=== PATIENT | female | born 1945 | race Caucasian/White ===

== ENCOUNTER → 2016-10-12 | Outpatient (CLI) | payer MEDICARE ==
--- NOTE | 2016-10-14 07:47 | MM ---
Reason for exam: screening (asymptomatic). Last mammogram was performed 1 year and 1 month ago. History: Patient is postmenopausal. Family history of breast cancer in mother at age 65, breast cancer in maternal grandfather, and breast cancer in sister at age 63. Benign left mammotome panel of the left breast, October 06, 2010. Took hormonal contraceptives for 2 years. Physical Findings: A clinical breast exam by your physician is recommended on an annual basis and results should be correlated with mammographic findings. MG 3D Screening Mammo W/Cad Bilateral CC and MLO view(s) were taken. Prior study comparison: September 20, 2015, bilateral MG screening mammo w CAD. July 04, 2014, bilateral MG screening mammo w CAD. June 21, 2013, bilateral digital screening mammo w/CAD. September 14, 2011, CAD bilateral diagnostic mammogram. There are scattered fibroglandular densities. Previous mammotome biopsy in the left breast. No significant changes when compared with prior studies. ASSESSMENT: Negative, BI-RAD 1 RECOMMENDATION: Routine screening mammogram of both breasts in 1 year.
== END | disposition home or self-care (01) ==
LOC: RADMAMWWP 14:03
PROVIDERS: ATTEND Internal Medicine
DX: Z12.31 Encounter for screening mammogram for malignant neoplasm of breast (principal)
CPT/HCPCS: 77063; G0202

== ENCOUNTER → 2017-11-16 | Outpatient (CLI) | payer MEDICARE ==
--- NOTE | 2017-11-17 14:16 | MM ---
Reason for exam: screening (asymptomatic). Last mammogram was performed 1 year and 1 month ago. History: Patient is postmenopausal. Family history of breast cancer in mother at age 65, breast cancer in maternal grandfather, and breast cancer in sister at age 63. Benign left mammotome panel of the left breast, October 06, 2010. Took hormonal contraceptives for 2 years. Physical Findings: A clinical breast exam by your physician is recommended on an annual basis and results should be correlated with mammographic findings. MG 3D Screening Mammo W/Cad Bilateral CC and MLO view(s) were taken. Prior study comparison: October 12, 2016, bilateral MG 3d screening mammo w/cad. September 20, 2015, bilateral MG screening mammo w CAD. The breast tissue is heterogeneously dense. This may lower the sensitivity of mammography. Benign appearing bilateral calcifications. No suspicious abnormality. Left breast biopsy marker noted. ASSESSMENT: Benign, BI-RAD 2 RECOMMENDATION: Routine screening mammogram of both breasts in 1 year.
== END | disposition home or self-care (01) ==
LOC: RADMAMWWP 16:45
PROVIDERS: ATTEND Internal Medicine
DX: Z12.31 Encounter for screening mammogram for malignant neoplasm of breast (principal)
CPT/HCPCS: 77063; 77067

== ENCOUNTER → 2019-02-16 | Outpatient (CLI) | payer MEDICARE ==
--- NOTE | 2019-02-20 09:36 | MM ---
Reason for exam: screening (asymptomatic). Last mammogram was performed 1 year and 3 months ago. History: Patient is postmenopausal. Family history of breast cancer in mother at age 65, breast cancer in maternal grandfather, and breast cancer in sister at age 63. Benign left mammotome panel of the left breast, October 06, 2010. Took hormonal contraceptives for 2 years. Physical Findings: A clinical breast exam by your physician is recommended on an annual basis and results should be correlated with mammographic findings. MG 3D Screening Mammo W/Cad Bilateral CC and MLO view(s) were taken. Prior study comparison: November 16, 2017, bilateral MG 3d screening mammo w/cad. October 12, 2016, bilateral MG 3d screening mammo w/cad. The breast tissue is heterogeneously dense. This may lower the sensitivity of mammography. Previous mammotome biopsy in the left breast. There is chronic nodularity in the left breast medially. Stable asymmetric densities medial right breast. No significant changes when compared with prior studies. ASSESSMENT: Benign, BI-RAD 2 RECOMMENDATION: Routine screening mammogram of both breasts in 1 year.
== END | disposition home or self-care (01) ==
LOC: RADMAMWWP 16:10
PROVIDERS: ATTEND Internal Medicine
DX: Z12.31 Encounter for screening mammogram for malignant neoplasm of breast (principal)
CPT/HCPCS: 77063; 77067

== ENCOUNTER → 2020-08-07 | Outpatient (CLI) | payer MEDICARE ==
--- NOTE | 2020-08-09 11:36 | MM ---
Reason for exam: screening (asymptomatic). Last mammogram was performed 1 year and 6 months ago. History: Patient is postmenopausal. Family history of breast cancer in mother at age 65, breast cancer in maternal grandfather, and breast cancer in sister at age 63. Benign left mammotome panel of the left breast, October 06, 2010. Took hormonal contraceptives for 2 years. Physical Findings: A clinical breast exam by your physician is recommended on an annual basis and results should be correlated with mammographic findings. MG 3D Screening Mammo W/Cad Bilateral CC and MLO view(s) were taken. Prior study comparison: February 16, 2019, bilateral MG 3d screening mammo w/cad. November 16, 2017, bilateral MG 3d screening mammo w/cad. The breast tissue is extremely dense which could obscure a lesion on mammography. There are benign appearing round dystrophic calcifications bilaterally. Previous mammotome biopsy in the left breast. There is no discrete abnormality. ASSESSMENT: Benign, BI-RAD 2 RECOMMENDATION: Routine screening mammogram of both breasts in 1 year.
== END | disposition home or self-care (01) ==
LOC: RADMAMWWP 16:09
PROVIDERS: ATTEND Internal Medicine
DX: Z12.31 Encounter for screening mammogram for malignant neoplasm of breast (principal)
CPT/HCPCS: 77063; 77067

== ENCOUNTER → 2020-12-18 | Outpatient (CLI) | payer MEDICARE ==
--- NOTE | 2020-12-18 15:47 | US ---
EXAMINATION TYPE: US abdomen complete DATE OF EXAM: 12/18/2020 COMPARISON: NONE CLINICAL HISTORY: R10.84 Abdominal pain. RUQ pain after meals. Patient stated has fibromyalgia and kn own gallstones. EXAM MEASUREMENTS: Liver Length: 12.6 cm Gallbladder Wall: 0.2 cm CBD: 0.6 cm Spleen: 9.0 cm Right Kidney: 9.9 x 5.1 x 4.6 cm Left Kidney: 10.2 x 4.5 x 5.1 cm Pancreas: The pancreas is mostly obscured due to overlying bowel gas. Liver: periportal echogenicity noted in left lobe especially . This can be seen with pneumobilia. Gallbladder: sludge and multiple gallstones are seen within neck with some mobility of stones in LLD position Evidence for sonographic Kasper's sign: tender here CBD: wnl for 7th decade 6.2 mm. Spleen: wnl Right Kidney: No hydronephrosis or masses seen Left Kidney: No hydronephrosis or masses seen Upper IVC: wnl Abd Aorta: mid intimal wall thickening is noted, but size is wnl. The aorta is nonaneurysmal. The pr oximal aorta measures 1.5 cm AP, mid aorta measures 1.8 cm AP, distal aorta measures 1.5 cm AP. There is atherosclerotic calcification at the aorta. IMPRESSION: 1. Multiple gallstones and sludge within the gallbladder. There are gallstones within the neck of the gallbladder which are mobile. Gallbladder wall is not thickened. Common duct is within normal limits . Positive Kasper's sign. Surgical evaluation is recommended. 2. No evidence of abdominal aortic aneurysm. There is atherosclerotic irregularity of the abdominal a elizabeth. 3. There is periportal echogenicity within the left lobe of the liver. This can be seen with pneumobi joy or cholecystitis. 4. The pancreas is obscured due to overlying bowel gas.
== END | disposition home or self-care (01) ==
LOC: RADUSWWP 13:59
PROVIDERS: ATTEND Internal Medicine
DX: K80.20 Calculus of gallbladder without cholecystitis without obstruction (principal); R19.8 Other specified symptoms and signs involving the digestive system and abdomen
CPT/HCPCS: 76700

== ENCOUNTER 2021-01-04 09:14 | Inpatient (IN) | payer MEDICARE ==
[2021-01-04] MEDS ORDERED: HEPARIN SODIUM 1,000 UN/ML (10ML VL) IV ONE (09:19)
[2021-01-04] MEDS ORDERED: ASPIRIN 81 MG PO STA (09:21)
[2021-01-04] MEDS ORDERED: ATORVASTATIN 80 MG TAB PO STA (09:21)
--- NOTE | 2021-01-04 09:33 | ED ---
Chest Pain HPI - General Chief Complaint: Chest Pain Stated Complaint: STEMI Time Seen by Provider: 01/04/21 09:14 Source: patient, EMS, RN notes reviewed, old records reviewed Mode of arrival: EMS Limitations: no limitations - History of Present Illness Initial Comments: This is a 75-year-old female who is brought in by EMS with complaints of the onset of midsternal chest pain that started at 5:57 AM this morning he states was very severe. She states right now is 8-9/10 severity this is after one nitroglycerin administered by paramedics. She states she thought initially was her gallbladder she's been having pain similar to this over the last several months case stress test in August which was apparently was within normal limits. She had ultrasound the gallbladder recently she is being worked up for gallbladder disease. She has some nausea no vomiting no fevers chills sweats no other symptoms. She states she has problems with aspirin and statins and will not take them. No other complaints or modifying factors at this time. EKG was transmitted by EMS and is consistent with a ST elevation myocardial infarction. A STEMI alert was immediately called prior to the patient arrival. MD Complaint: chest pain - Related Data Allergies Allergy/AdvReac Type Severity Reaction Status Date / Time aspirin AdvReac Abdominal Verified 01/04/21 09:24 Pain atorvastatin [From Lipitor] AdvReac Abdominal Verified 01/04/21 09:24 Pain NSAIDS (Non-Steroidal AdvReac Abdominal Verified 01/04/21 09:24 Anti-Inflamma Pain [id number] Reductase AdvReac Abdominal Verified 01/04/21 09:24 Inhibitor Pain Review of Systems ROS Statement: Those systems with pertinent positive or pertinent negative responses have been documented in the HPI. ROS Other: All systems not noted in ROS Statement are negative. EKG Findings - EKG Results: EKG: interpreted by YASMEEN, sinus rhythm (Sinus rhythm of 93. Interval 194 QRS duration 68 QT/QTC 350/445 ST-T elevation in leads 1 and aVL also in V2 with depression in leads 23 aVF and V6.) Past Medical History Past Medical History: Unable to Obtain History of Any Multi-Drug Resistant Organisms: None Reported Past Surgical History: Unable to Obtain Past Psychological History: No Psychological Hx Reported Smoking Status: Never smoker Past Alcohol Use History: None Reported Past Drug Use History: None Reported General Exam - General Exam Comments Initial Comments: This is a well-developed well-nourished awake alert oriented 3 female Limitations: no limitations General appearance: alert, anxious, in distress Head exam: Present: atraumatic, normocephalic, normal inspection Eye exam: Present: normal appearance, PERRL, EOMI. Absent: scleral icterus, conjunctival injection, periorbital swelling ENT exam: Present: normal exam, mucous membranes moist Neck exam: Present: normal inspection, full ROM, other (No stridor JVD or bruits). Absent: tenderness, meningismus, lymphadenopathy Respiratory exam: Present: normal lung sounds bilaterally. Absent: respiratory distress, wheezes, rales, rhonchi, stridor Cardiovascular Exam: Present: regular rate, normal rhythm, normal heart sounds. Absent: systolic murmur, diastolic murmur, rubs, gallop, clicks GI/Abdominal exam: Present: soft, normal bowel sounds. Absent: distended, tenderness, guarding, rebound, rigid Extremities exam: Present: normal inspection, full ROM, normal capillary refill. Absent: tenderness, pedal edema, joint swelling, calf tenderness Back exam: Present: normal inspection Neurological exam: Present: alert, oriented X3, CN II-XII intact Psychiatric exam: Present: normal affect, normal mood Skin exam: Present: warm, dry, intact, normal color. Absent: rash Course Vital Signs 01/04/21 09:15 Temperature 97.4 F L Pulse Rate 93 Respiratory 16 Rate Blood Pressure 111/67 O2 Sat by Pulse 99 Oximetry Chest Pain MDM - MDM A STEMI alert was called. He did have evidence of an acute ST elevation myocardial infarction does appear consistent with anterolateral injury pattern Sherri Mariano was notified he did come the emergency department to see the patient be taken to the [facility]. Dr. López is notified Critical Care Time Critical Care Time: Yes Total Critical Care Time: 31 Critical Care Time: Total care time includes initial presentation with history physical ordering labs and x-rays review of x-ray. Discussion with Dr. Mariano regarding findings discussed with Dr. Yousif. Review of old charting was available. Discussed with paramedics upon arrival. Review of EMS EKG. Admission orders documentation the above discussed with [facility] personnel Disposition Clinical Impression: ST elevation myocardial infarction (STEMI), Chest pain Disposition: ADMITTED IP TO THIS HOSP Condition: Serious Referrals: Stacie López MD [Primary Care Provider] - 1-2 days
[2021-01-04 09:39] LABS: Basophils % (A) 0 %; Eosinophils # (A) 0.1 k/uL (0-0.7); Eosinophils % (A) 1 %; HCT 33.4 % (34.0-46.0); HGB 10.9 gm/dL (11.4-16.0); Lymphocytes # (A) 2.9 k/uL (1.0-4.8); Lymphocytes % (A) 21 %; MCH 29.5 pg (25.0-35.0); MCHC 32.6 g/dL (31.0-37.0); MCV 90.7 fL (80.0-100.0); Mean Platelet Volume 7.7; Monocytes # (A) 0.5 k/uL (0-1.0); Monocytes % (A) 3 %; Neutrophils # (A) 9.8 k/uL (1.3-7.7); Neutrophils % (A) 74 %; Platelet Count 270 k/uL (150-450); RBC 3.69 m/uL (3.80-5.40); RDW 13.2 % (11.5-15.5); WBC 13.4 k/uL (3.8-10.6)
[2021-01-04 09:43] LABS: ALT 48 U/L (4-34); AST 98 U/L (14-36); African American GFR (CKD) >90 (>60 ml/min/1.73 sqM); Albumin 4.3 g/dL (3.5-5.0); Alkaline Phosphatase 79 U/L (38-126); Anion Gap 10 mmol/L; Blood Urea Nitrogen 12 mg/dL (7-17); Calcium 9.4 mg/dL (8.4-10.2); Carbon Dioxide 26 mmol/L (22-30); Chloride 103 mmol/L (98-107); Creatine Kinase 67 U/L (30-135); Glucose 242 mg/dL (74-99); Magnesium 1.9 mg/dL (1.6-2.3); Non-African American GFR(CKD) >90 (>60 ml/min/1.73 sqM); Potassium 3.8 mmol/L (3.5-5.1); Sodium 139 mmol/L (137-145); Total Bilirubin 0.6 mg/dL (0.2-1.3); Total Protein 6.7 g/dL (6.3-8.2)
[2021-01-04] MEDS ORDERED: VERAPAMIL 2.5 MG/ML 2 ML AMP ONE (09:47)
[2021-01-04] MEDS ORDERED: fentaNYL (PF) 50 MCG/ML 2 ML AMP ONE (09:47)
[2021-01-04] MEDS ORDERED: LIDOCAINE 1% INJ 10MG/ML (20 ML MDV) ONE (09:47)
[2021-01-04 09:48] LABS: Partial Thromboplastin Time 23.1 sec (22.0-30.0); Prothrombin Time 10.7 sec (9.0-12.0)
--- NOTE | 2021-01-04 09:48 | XR ---
EXAMINATION TYPE: XR chest 1V portable DATE OF EXAM: 01/04/2021 COMPARISON: NONE HISTORY: 75 years Female. STUDY INDICATION GIVEN: Chest pain TECHNIQUE: AP upright portable chest radiograph FINDINGS AND IMPRESSION: Right infrahilar opacities demonstrated could be on the basis of atelectasis and/or pneumonic consoli dation. 5 mm nodule seen in the right lower third of the hemithorax, nodule could be infectious or inflammato ry or malignant, repeat chest radiograph in 1-2 months after appropriate treatment recommended. Alter natively a noncontrast CT chest can be obtained on outpatient basis. No pneumothorax or pleural effusion demonstrated. The cardiomediastinal silhouette is within normal limit. No acute osseous abnormality.
[2021-01-04] MEDS ORDERED: IV FLUID CONTINUATION 1,000 ML IV ONE (09:54)
[2021-01-04] MEDS ORDERED: ASPIRIN 81 MG ONE (09:55)
[2021-01-04] MEDS ORDERED: fentaNYL (PF) 50 MCG/ML 2 ML AMP IV ONE (09:56)
[2021-01-04] MEDS ORDERED: HEPARIN SODIUM 1,000 UN/ML (10ML VL) ONE (09:57)
[2021-01-04] MEDS ORDERED: ASPIRIN 81 MG PO ONE (09:57)
[2021-01-04] MEDS ORDERED: LIDOCAINE 1% INJ 10MG/ML (20 ML MDV) SQ ONE (09:58)
[2021-01-04] MEDS ORDERED: VERAPAMIL SYRINGE (5 MG/10 ML) INTRAARTER ONE (10:00)
[2021-01-04] MEDS ORDERED: TICAGRELOR 90 MG TAB ONE (10:04)
[2021-01-04] MEDS ORDERED: TICAGRELOR 90 MG TAB PO ONE (10:06)
[2021-01-04] MEDS: HEPARIN SODIUM 1,000 UN/ML (10ML VL) IV ONE ×3 (10:06→10:18)
--- NOTE | 2021-01-04 10:10 | CONS ---
CONSULTATION ATTENDING: Dr. López. HISTORY OF PRESENT ILLNESS: Mrs. Pratt is a 75-year-old female with history of hyperlipidemia, intolerant to statin, who presented with acute episode of chest discomfort. She has been having discomfort on and off for the last month or so and underwent cardiac testing that according to her was unremarkable. I do not have the results available to me. She subsequently underwent an abdominal ultrasound and was found to have sludge and multiple gallstones. Today she woke up with severe chest discomfort that was persistent, associated with dyspnea. Came into the emergency room and was noted to have ST-segment elevation involving the anterolateral leads with ST depression in the inferior leads. The patient has no prior history of congestive heart failure. No PND. No orthopnea. No peripheral edema. No dizziness or syncope. Her list of medication is not available to me at this time. REVIEW OF SYSTEMS: RESPIRATORY SYSTEM: She denies any recent cough or fever. No history of chronic obstructive pulmonary disease. GI SYSTEM: No recent GI bleeding. No peptic ulcer disease. She has abdominal discomfort. SYSTEM: No dysuria or hematuria. NERVOUS SYSTEM: No history of stroke or seizure. PHYSICAL EXAMINATION: GENERAL: A 75-year-old female, alert, oriented, no apparent distress. VITAL SIGNS: Blood pressure 111/60 with a heart rate in the 90s. HEAD: Normocephalic. Eyes sclerae anicteric. NECK: Good carotid upstroke, no bruit, no jugular venous distention. LUNGS: Clear to auscultation. HEART: Regular rate and rhythm S1, S2. No S3. No S4. No rub. ABDOMEN: Soft and nontender. Positive bowel sounds. No organomegaly. EXTREMITIES: No edema. Intact pulses. LAB DATA: Not available. EKG revealed sinus mechanism with ST-segment elevation in the anteroapical leads in the one and aVL with ST depression inferiorly consistent with an anterior wall myocardial infarction. IMPRESSION: 1. Acute myocardial infarction. 2. Hyperlipidemia intolerant to statin. 3. History of cholelithiasis. RECOMMENDATION: I recommend proceeding with emergent cardiac catheterization to evaluate her status and guide her treatment. The rationale behind the procedure, its risks and the complications were discussed with the patient who is in full understanding and agreement. Thank you for this consult. We will follow with you. MMODL / IJN: [id number] /
[2021-01-04] MEDS ORDERED: ONDANSETRON 4 MG/2 ML VIAL ONE (10:12)
[2021-01-04] MEDS ORDERED: NITROGLYCERIN 1000MCG/10ML SYRINGE INTRACORON ONE (10:12)
[2021-01-04] MEDS ORDERED: ONDANSETRON 4 MG/2 ML VIAL IVP ONE (10:14)
[2021-01-04] MEDS ORDERED: MIDAZOLAM 2 MG/2 ML VIAL IV ONE (10:17)
[2021-01-04] MEDS ORDERED: IOPAMIDOL-370 125ML BTL INJ ONE (10:20)
[2021-01-04] MEDS ORDERED: IOPAMIDOL-370 100ML BTL INJ ONE (10:30)
[2021-01-04] MEDS ORDERED: RX INFO: IV CONTRAST WAS GIVEN 1 EACH MISC MISCELLANE PRN (10:47)
[2021-01-04] MEDS ORDERED: ATROPINE SULFATE 0.1 MG/ML 10ML SYRINGE IV PRN (10:47)
[2021-01-04] MEDS ORDERED: ZOLPIDEM 5 MG TAB PO PRN (10:47)
[2021-01-04] MEDS ORDERED: MAG HYDROX/AL HYDROX/SIMETH 30 ML CUP PO PRN (10:47)
[2021-01-04] MEDS ORDERED: NITROGLYCERIN SL TABS 0.4 MG TAB SUBLINGUAL PRN (10:47)
[2021-01-04 10:53] LABS: Glucose,Whole Blood 217 mg/dL (75-99)
[2021-01-04] MEDS ORDERED: SODIUM CHLORIDE 0.9% 1,000 ML IV SCH (11:00)
--- NOTE | 2021-01-04 11:30 | CC ---
CARDIAC CATHETERIZATION REPORT PROCEDURE PERFORMED: Cardiac catheterization. INDICATIONS: Mrs. Prtat is a 75-year-old female with known history of hyperlipidemia, who presented with symptoms of chest discomfort and electrocardiographic changes consistent with anterior wall myocardial infarction. In view of that, recommendation made regarding a cardiac catheterization. The procedure as well as the risks and the complications were discussed with the patient who is in full understanding and agreement. PROCEDURE: Patient was brought to laboratory analyst in a fasting semi-sedate state after receiving fentanyl and Benadryl and achieving moderate conscious sedated state. Using Xylocaine anesthesia and Seldinger technique, a 6-Montserratian sheath was introduced in the right radial artery. Selective left coronary angiography performed using 6-Montserratian FL3.5 guiding catheter. After obtaining images of the left coronary system and performing angioplasty and stenting of the LAD, a 5-Montserratian 3.5 bend right Ivon catheter was introduced in the system and images of the right coronary artery were performed. Following that, 5-Montserratian tight pigtail catheter was introduced in the left ventricle and pressures were calculated. Following that, catheter and sheath were removed. Hemostasis was obtained with deployment of a TR band. There was no immediate complication. Patient was returned to room in stable condition. Of note, the patient received intra-arterial verapamil. FINDINGS: FLUOROSCOPY: There is calcification involving all the coronary arteries but predominantly the proximal LAD. LEFT MAIN: This is a large-sized vessel, bifurcating into left circumflex, left anterior descending artery. Left main artery has no evidence of high-grade stenosis. LEFT ANTERIOR DESCENDING ARTERY: This is a large-sized vessel reaching to the apex with a wrap around the apex segment giving rise to a moderately sized diagonal branch in the mid segment. The proximal LAD has a 99% stenosis. The mid LAD and the distal LAD has diffuse intimal disease, small in caliber. The diagonal branch has diffuse intimal disease of 20% to 30%. LEFT CIRCUMFLEX: This is a nondominant vessel giving rise to one obtuse marginal branch. The left circumflex has diffuse intimal disease throughout its course with area of stenosis up to 60%-70%. The obtuse marginal branch gives a smaller branch that has a 99% stenosis of the ostium. The rest of the vessel has no high-grade stenosis. RIGHT CORONARY ARTERY: This is a large dominant vessel bifurcating distally into PDA and posterolateral segment branches. The mid right coronary artery has a 70% stenosis. There is another area of stenosis of about 60% distally. The PLV and the PDA have diffuse intimal disease with area of stenosis up to 80%. The caliber of the vessel beyond that is smaller in caliber. LEFT VENTRICULOGRAM: Left ventriculogram was not performed. HEMODYNAMICS: There was no gradient across the aortic valve. The left ventriclar end-diastolic pressure was 24-28 mmHg. CONCLUSION: 1. Critical stenosis involving the proximal LAD. 2. Significant disease in the mid right coronary artery and in an obtuse marginal branch. 3. Elevated left ventricular end-diastolic pressure. RECOMMENDATION: In view of finding anatomy, I recommend proceeding with angioplasty and stenting of the LAD. The procedure as well as the risks and the complications were discussed with the patient who is in full understanding and agreement. MMEDAL / IJN: [id number] /
--- NOTE | 2021-01-04 11:35 | PTCA ---
PERCUTANEOUSTRANS CORORONARY ANGIOGRAPHY PROCEDURE PERFORMED: Angioplasty. INDICATIONS: Mrs. Pratt is a 75-year-old female with history of hyperlipidemia who presented with an acute myocardial infarction in the anterior wall, underwent cardiac catheterization and was found to have critical stenosis in the proximal LAD. In view of that, recommendation was made regarding angioplasty and stenting. The procedure as well as the risks and the complications were discussed with the patient who is in full understanding and agreement. PROCEDURE DESCRIPTION: Using the 6-Slovak FL 3.5 guiding catheter, a 0.014 balanced medium weight J-wire was advanced across the lesion and positioned distally. Then a 2.5 x 12 mm Trek balloon was advanced and one inflation at 8 atmospheres was done. Following that the balloon was removed and a 3.0 x 18 mm Xience [place] stent was advanced, deployed and post dilated at 16 atmospheres. After the last inflation, after appropriate wait, the balloon and the guidewire were withdrawn back in the guiding catheter. Images were obtained and repeated. Those images reveal stable successful stenting. At that point, the guiding catheter, the balloon and the guidewire were removed. Images of the right coronary artery and left ventricular end-diastolic pressure was calculated. Following that, catheter and sheath were removed. Hemostasis was obtained with deployment of TR band. There was no immediate complication. Patient was returned to room in stable condition. Of note, the patient had improvement in her EKG changes as well as her chest discomfort. She received a total of 3000 units of intravenous heparin in addition to the amount she received in the emergency room. Her ACT was monitored. She also received an oral loading dose of Brilinta. RESULTS: Successful stenting of the proximal LAD with reduction of stenosis from 99% to 0%. RECOMMENDATION: Patient will be continued on aspirin, Brilinta, beta blockers and statin. The importance of dual antiplatelet treatment were discussed with the patient and her family who are in full understanding and agreement. The patient will be re-evaluated at a later time to undergo revascularization of her right coronary artery. Duration of sedation is 34 minutes. MMODL / IJN: [id number] /
--- NOTE | 2021-01-04 11:39 | LTR ---
01/04/2021 RE: Ava Pratt Dear Dr. López: I had the opportunity to perform cardiac catheterization and coronary angioplasty and stenting on this patient at [facility] on 01/04/2021. A full copy of the procedure note will be forwarded to you. In brief, she was found to have a subtotally occluded proximal LAD and underwent successful stenting of that vessel. She also was found to have obstructive disease involving the right coronary artery. At this time, I would recommend maximizing her medical therapy and she will be evaluated at a later time to undergo staged angioplasty and stenting of the right coronary artery. I will keep you updated on her progress and thank you again for allowing me to participate in your patient's care. Please feel free to call with any questions. Sincerely yours, Claeb Mariano MD. HARJIT / SANDRA: [id number] /
[2021-01-04] MEDS ORDERED: HYDROcodone/APAP 10-325MG 1 EACH TAB PO PRN (12:02)
[2021-01-04] MEDS: HYDROmorphone 0.5 MG/0.5 ML SYRINGE IVP PRN ×3 (13:26→23:00)
--- NOTE | 2021-01-04 15:03 | ECHOF ---
Referral Reason:mi MEASUREMENTS -------- HEIGHT: 170.2 cm WEIGHT: 68.0 kg BP: IVSd: 0.9 cm (0.6 - 1.1) LVIDd: 3.8 cm (3.9 - 5.3) LVPWd: 1.2 cm (0.6 - 1.1) IVSs: 1.2 cm LVIDs: 3.1 cm LVPWs: 1.0 cm LAESV Index (A-L): 17.09 ml/m Ao Diam: 2.7 cm (2.0 - 3.7) AV Cusp: 1.6 cm (1.5 - 2.6) LA Diam: 3.1 cm (2.7 - 3.8) MV EXCURSION: 16.594 mm (> 18.000) MV EF SLOPE: 123 mm/s (70 - 150) EPSS: 0.6 cm MV E Te: 0.88 m/s MV DecT: 107 ms MV A Te: 1.31 m/s MV E/A Ratio: 0.67 AR PHT: 444 ms RAP: 5.00 mmHg RVSP: 32.66 mmHg FINDINGS -------- Sinus rhythm. This was a technically difficult study with suboptimal views. The left ventricular size is normal. Left ventricular wall thickness is normal. Overall left vent ricular systolic function is moderate-severely impaired with, an EF between 30 - 35 %. Basal zackery septal LV wall motion is hypokinetic. Mid anterior LV wall motion is hypokinetic. Mid anterosep giselle LV wall motion is hypokinetic. Apical anterior LV wall motion is hypokinetic. Apical latera l LV wall motion is hypokinetic. Apical inferior LV wall motion is hypokinetic. Apical septum L V wall motion is hypokinetic. The right ventricle is normal in size. Normal LA size by volume 22+/-6 ml/m2. The right atrial size is normal. xx ml of Lumason was utilized for enhancement of images. There is mild aortic valve sclerosis. Mild mitral annular calcification present. Mild mitral regurgitation is present. The tricuspid valve appears structurally normal. Mild tricuspid regurgitation present. Right vent ricular systolic pressure is normal at < 35 mmHg. The pulmonic valve was not well visualized. There is no pulmonic regurgitation present. The aortic root size is normal. IVC Not well visulized. There is no pericardial effusion. CONCLUSIONS -------- 1. This was a technically difficult study with suboptimal views. 2. Left ventricular wall thickness is normal. 3. Overall left ventricular systolic function is moderate-severely impaired with, an EF between 30 - 35 %. 4. Basal anteroseptal LV wall motion is hypokinetic. 5. Mid anterior LV wall motion is hypokinetic. 6. Mid anteroseptal LV wall motion is hypokinetic. 7. Apical anterior LV wall motion is hypokinetic. 8. Apical lateral LV wall motion is hypokinetic. 9. Apical inferior LV wall motion is hypokinetic. 10. Apical septum LV wall motion is hypokinetic. 11. Normal LA size by volume 22+/-6 ml/m2. 12. There is mild aortic valve sclerosis. 13. Mild mitral regurgitation is present. 14. Mild tricuspid regurgitation present. 15. There is no pericardial effusion. MANAGER HOTEL: Gege Mullen RDCS
--- NOTE | 2021-01-04 15:08 | P.HPIM ---
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 He was evaluated in the emergency room vital examination on presentation revealed a temperature of 97.4 pulse 93 respiration 16 blood pressure 111/67 pulse ox 99% on 2 L nasal cannula Laboratory data reveals a white blood count of 13.4 hemoglobin 10.9 platelet count 270 sodium 139 potassium 3.8 BUN 12 creatinine 0.52 glucose 242 AST 98 ALT 48 troponin 0.098 Testing in the emergency room, patient had a chest x-ray that revealed a right infrahilar opacity that could be on the basis of atelectasis or pneumonia, patient also had a 5 mm nodule in the right lower third of the hemithorax. Past medical history is significant for yds-tjrgemo-hfpjulidx diabetes mellitus, hypertension, hyperlipidemia, vitamin D deficiency, and history of fibromyalgia. Patient also recently had a gallbladder ultrasound on 12/18/2020 that revealed multiple gallstones and sludge within the gallbladder and gallstones within the neck of the gallbladder. Past Medical History Past Medical History: Unable to Obtain History of Any Multi-Drug Resistant Organisms: None Reported Past Surgical History: Unable to Obtain Additional Past Surgical History / Comment(s): Hysterectomy 1986 Past Anesthesia/Blood Transfusion Reactions: No Reported Reaction Past Psychological History: No Psychological Hx Reported Smoking Status: Never smoker Past Alcohol Use History: None Reported Past Drug Use History: None Reported - Past Family History Mother Family Medical History: Cancer Father Family Medical History: Cancer Medications and Allergies Home Medications Medication Instructions Recorded Confirmed Type ALPRAZolam [Xanax] 1 mg PO BID 01/04/21 01/04/21 History Amitriptyline HCl 50 mg PO HS 01/04/21 01/04/21 History Dorzolamide HCl/Pf [Dorzolamide 2% 1 drop BOTH EYES BID 01/04/21 01/04/21 History Eye Drop] Ergocalciferol (Vitamin D2) 1,250 mcg PO WEEKLY 01/04/21 01/04/21 History [Drisdol (50,000 Iu)] HYDROcodone/APAP 10-325MG [[place] 2 tab PO Q8H PRN 01/04/21 01/04/21 History 10-325] Levothyroxine Sodium [Synthroid] 25 mcg PO DAILY 01/04/21 01/04/21 History metFORMIN HCL [Glucophage] 500 mg PO DAILY 01/04/21 01/04/21 History Allergies Allergy/AdvReac Type Severity Reaction Status Date / Time aspirin AdvReac Abdominal Verified 01/04/21 09:24 Pain atorvastatin [From Lipitor] AdvReac Abdominal Verified 01/04/21 09:24 Pain NSAIDS (Non-Steroidal AdvReac Abdominal Verified 01/04/21 09:24 Anti-Inflamma Pain Szumvuq-Laj-Gzx Reductase AdvReac Abdominal Verified 01/04/21 09:24 Inhibitor Pain Physical Exam Vitals: Vital Signs Temp Pulse Resp BP BP Pulse Ox 01/04/21 13:00 98 13 118/92 97 01/04/21 12:00 92 10 L 99 01/04/21 11:00 88 18 100/60 94 L 01/04/21 10:49 86 L 01/04/21 10:48 18 01/04/21 09:50 92 16 125/55 98 01/04/21 09:45 78 17 100 01/04/21 09:37 16 100/60 01/04/21 09:30 94 18 108/62 98 01/04/21 09:29 86 16 108/62 99 01/04/21 09:15 97.4 F L 93 16 111/67 99 Intake and Output 01/03/21 01/04/21 01/04/21 22:59 06:59 14:59 Intake Total 850 Balance 850 Intake: IV 700 Intake, IV Titration 150 Amount Sodium Chloride 0.9% 1, 150 000 ml @ 75 mls/hr IV . [id number] [facility] Rx#:[id number] Other: # Voids 1 Weight 68.039 kg In general patient is alert and oriented x 3 in no distress HEENT head normocephalic and atraumatic Neck is supple no JVD no goiter no lymphadenopathy no carotid bruit Chest examination is clear to auscultation no crackles no wheezing Cardiac exam reveals regular heart sounds S1 and S2 no gallops no murmurs Abdomen is soft nontender no organomegaly with normal bowel sounds Extremity exam reveals no edema no cyanosis or clubbing Neurological examination reveals no gross focal deficits Results CBC & Chem 7: 01/04/21 09:25 01/04/21 09:25 Labs: Abnormal Lab Results - Last 24 Hours (Table) 01/04/21 01/04/21 01/04/21 Range/Units 09:25 09:25 09:25 WBC 13.4 H (3.8-10.6) k/uL RBC 3.69 L (3.80-5.40) m/uL Hgb 10.9 L (11.4-16.0) gm/dL Hct 33.4 L (34.0-46.0) % Neutrophils # 9.8 H (1.3-7.7) k/uL Glucose 242 H (74-99) mg/dL POC Glucose (mg/dL) (75-99) mg/dL AST 98 H (14-36) U/L ALT 48 H (4-34) U/L Troponin I 0.098 H* (0.000-0.034) ng/mL 01/04/21 01/04/21 Range/Units 10:51 12:32 WBC (3.8-10.6) k/uL RBC (3.80-5.40) m/uL Hgb (11.4-16.0) gm/dL Hct (34.0-46.0) % Neutrophils # (1.3-7.7) k/uL Glucose (74-99) mg/dL POC Glucose (mg/dL) 217 H (75-99) mg/dL AST (14-36) U/L ALT (4-34) U/L Troponin I 46.800 H* (0.000-0.034) ng/mL Thrombosis Risk Factor Assmnt - Choose All That Apply Any of the Below Risk Factors Present?: Yes Each Factor Represents 1 point: Acute [place] Each Risk Factor Represents 3 Points: Age 75 years or older Thrombosis Risk Factor Assessment Total Risk Factor Score: 4 Thrombosis Risk Factor Assessment Level: Moderate Risk Assessment and Plan Plan: 1. Acute ST elevation myocardial infarction 2. Critical stenosis in the proximal LAD status post angioplasty and stent placement on presentation 3. Leukocytosis, could be related to pulmonic infiltrate versus gallbladder disease, will start IV Rocephin and consult infectious disease 4. Elevated liver enzymes 5. Abnormal gallbladder ultrasound done on 12/18/2020 revealing multiple gallstones 6. Underlying history of hypertension 7. Underlying history of hyperlipidemia 8. Underlying history of statin intolerance 9. Underlying history of ghe-thouqqt-rhvqcnasb diabetes mellitus 10. Underlying history of fibromyalgia with chronic pain 11. Evidence of 5 mm right lower lobe pulmonary nodule will follow closely in the subacute period. At this time patient is admitted to intensive care unit She is maintained on aspirin, Brillinta, metoprolol, she was also started on a low-dose of Lipitor despite history of intolerance to statins, patient will be monitored closely in ICU, she is also receiving Maria Isabel Metformin is on hold at this time, will check hemoglobin A1c Will cover with insulin sliding scale Will follow closely during this admission
[2021-01-04 16:28] LABS: Chol/HDL Ratio 3.36; LDL Cholesterol,Calculated 93.6 mg/dL (0.0-131.0); VLDL Calculation 36.4 mg/dL (5.00-40.00)
[2021-01-04] MEDS: HYDROcodone/APAP 10-325MG 1 EACH TAB PO PRN ×2 (16:29→21:16)
[2021-01-04 17:25] LABS: Glucose,Whole Blood 226 mg/dL (75-99)
[2021-01-04] MEDS: INSULIN ASPART (NovoLOG) 100 UNIT/ML VIAL SQ SCH ×2 (18:28→21:19)
[2021-01-04 21:09] LABS: Glucose,Whole Blood 197 mg/dL (75-99)
[2021-01-04] MEDS: ALPRAZolam 1 MG TAB PO SCH (21:16)
[2021-01-04] MEDS: METOPROLOL TARTRATE 25 MG TAB PO SCH (21:16)
[2021-01-04] MEDS: TICAGRELOR 90 MG TAB PO SCH (21:16)
[2021-01-04] MEDS: ATORVASTATIN 10 MG TAB PO SCH ×2 (21:16→22:26)
[2021-01-04] MEDS: AMITRIPTYLINE HCL 10 MG TAB PO SCH (21:18)
[2021-01-04] MEDS: ONDANSETRON 4 MG/2 ML VIAL IVP PRN (21:48)
[2021-01-05] MEDS: HYDROcodone/APAP 10-325MG 1 EACH TAB PO PRN ×6 (00:52→22:06)
[2021-01-05] MEDS: HYDROmorphone 0.5 MG/0.5 ML SYRINGE IVP PRN ×5 (02:45→19:04)
[2021-01-05 03:44] LABS: Basophils % (A) 0 %; Eosinophils % (A) 0 %; HCT 40.1 % (34.0-46.0); HGB 12.9 gm/dL (11.4-16.0); Lymphocytes # (A) 1.6 k/uL (1.0-4.8); Lymphocytes % (A) 11 %; MCH 28.7 pg (25.0-35.0); MCHC 32.1 g/dL (31.0-37.0); MCV 89.6 fL (80.0-100.0); Mean Platelet Volume 7.9; Monocytes # (A) 0.7 k/uL (0-1.0); Monocytes % (A) 5 %; Neutrophils # (A) 12.2 k/uL (1.3-7.7); Neutrophils % (A) 84 %; Platelet Count 398 k/uL (150-450); RBC 4.48 m/uL (3.80-5.40); RDW 13.4 % (11.5-15.5); WBC 14.6 k/uL (3.8-10.6)
[2021-01-05 04:02] LABS: ALT 87 U/L (4-34); AST 456 U/L (14-36); African American GFR (CKD) >90 (>60 ml/min/1.73 sqM); Alkaline Phosphatase 74 U/L (38-126); Anion Gap 9 mmol/L; Blood Urea Nitrogen 13 mg/dL (7-17); Calcium 9.4 mg/dL (8.4-10.2); Carbon Dioxide 26 mmol/L (22-30); Chloride 101 mmol/L (98-107); Glucose 194 mg/dL (74-99); Non-African American GFR(CKD) >90 (>60 ml/min/1.73 sqM); Potassium 3.7 mmol/L (3.5-5.1); Sodium 136 mmol/L (137-145); Total Bilirubin 0.7 mg/dL (0.2-1.3); Total Protein 6.4 g/dL (6.3-8.2)
[2021-01-05] MEDS ORDERED: POTASSIUM CHLORIDE ER 20 MEQ TAB.ER PO STA (05:44)
[2021-01-05 06:53] LABS: Glucose,Whole Blood 174 mg/dL (75-99)
[2021-01-05] MEDS: INSULIN ASPART (NovoLOG) 100 UNIT/ML VIAL SQ SCH ×4 (06:56→20:55)
[2021-01-05] MEDS: METOPROLOL TARTRATE 25 MG TAB PO SCH ×2 (09:35→20:58)
[2021-01-05] MEDS: EZETIMIBE 10 MG TAB PO SCH (09:36)
[2021-01-05] MEDS: ASPIRIN 81 MG PO SCH (09:36)
[2021-01-05] MEDS: TICAGRELOR 90 MG TAB PO SCH ×2 (09:36→20:58)
--- NOTE | 2021-01-05 09:37 | PN ---
PROGRESS NOTE INTERVAL HISTORY: Mrs. Pratt is a 75-year-old female with known history of hyperlipidemia, history of diabetes mellitus, who presented with acute anterior myocardial infarction, underwent emergent cardiac catheterization and was found to have subtotally occluded LAD with significant disease in the right coronary artery. She underwent stenting of her LAD. She is doing well this morning. She has no chest pain. She is complaining of her fibromyalgia. She denies any dizziness or palpitation. She denies any nausea. She had an echocardiogram performed yesterday that revealed an ejection fraction of 30-35% with anteroapical and anteroseptal hypokinesis to akinesis. She continues to be at this time on amitriptyline, aspirin once a day, Lipitor 10 mg daily, Zetia 10 mg daily, metoprolol tartrate 25 mg twice a day, Brilinta 90 mg twice a day. PHYSICAL EXAMINATION: Blood pressure 132/70, heart rate in the 100s. Lungs no wheezes or rales. Heart regular rate and rhythm S1, S2. No S3. No rub. Abdomen is soft and nontender. Extremities no edema. Right radial pulse intact. LAB DATA: Lab data revealed a troponin of up to 111. IMPRESSION: 1. Status post anterior wall myocardial infarction with stenting of the LAD. 2. Obstructive disease in the RCA. 3. Severely impaired left ventricular systolic function. 4. History of diabetes mellitus. RECOMMENDATION: I will add to her regimen Aldactone. The sinus tachycardia is concerning and will continue to monitor that closely. We will increase her level of activity gradually and depending on her response further recommendation will be made down the road regarding the timing of intervention on the RCA that can be done during subsequent admission, depending on her status and her progression. In the meantime, will continue present therapy and increase her activity gradually. I will continue on the present dose of beta oseas and depending on her heart rate and blood pressure tomorrow, an BLAISE inhibitor can be added. MMODL / IJN: [id number] /
--- NOTE | 2021-01-05 09:53 | P.PN ---
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 He was evaluated in the emergency room vital examination on presentation revealed a temperature of 97.4 pulse 93 respiration 16 blood pressure 111/67 pulse ox 99% on 2 L nasal cannula Laboratory data reveals a white blood count of 13.4 hemoglobin 10.9 platelet count 270 sodium 139 potassium 3.8 BUN 12 creatinine 0.52 glucose 242 AST 98 ALT 48 troponin 0.098 Testing in the emergency room, patient had a chest x-ray that revealed a right infrahilar opacity that could be on the basis of atelectasis or pneumonia, patient also had a 5 mm nodule in the right lower third of the hemithorax. Past medical history is significant for skg-vdmwdsf-scixjmxhc diabetes mellitus, hypertension, hyperlipidemia, vitamin D deficiency, and history of fibromyalgia. Patient also recently had a gallbladder ultrasound on 12/18/2020 that revealed multiple gallstones and sludge within the gallbladder and gallstones within the neck of the gallbladder. On 01/05/2021. Patient's alert and oriented 3. Patient reports just generalized pain related to her fibromyalgia and difficulty sleeping and hospital. Patient denies any chest pain or shortness of breath. Patient denies any nausea vomiting or diarrhea. Patient denies any urinary burning or frequency. Heart rate 101. Respiratory rate 16. Blood pressure 132/76. Oxygenation status 95% on 2 L Objective - Vital Signs Vital signs: Vital Signs Temp 98.2 F 01/05/21 08:00 Pulse 101 H 01/05/21 08:00 Resp 16 01/05/21 08:00 BP 132/76 01/05/21 08:00 Pulse Ox 95 01/05/21 08:00 Intake & Output 01/04/21 01/05/2101/05/21 18:59 06:59 18:59 Intake Total 1350 75 Output Total 275 0 Balance 1350 -200 0 Weight 68.039 kg 69.3 kg Intake: IV 750 cefTRIAXone 1 gm In 50 Sodium Chloride 0.9% 50 ml @ 100 mls/hr IVPB Q24HR [facility] Rx#:[id number] Intake, IV Titration 600 75 Amount Sodium Chloride 0.9% 1, 600 75 000 ml @ 75 mls/hr IV . [id number] [facility] Rx#:[id number] Output: Urine 275 0 Other: Voiding Method Bedside Commode Bedside Commode # Voids 1 0 0 - Exam In general patient is alert and oriented x 3 in no distress HEENT head normocephalic and atraumatic Neck is supple no JVD no goiter no lymphadenopathy no carotid bruit Chest examination is clear to auscultation no crackles no wheezing Cardiac exam reveals regular heart sounds S1 and S2 no gallops no murmurs Abdomen is soft nontender no organomegaly with normal bowel sounds Extremity exam reveals no edema no cyanosis or clubbing Neurological examination reveals no gross focal deficits - Labs CBC & Chem 7: 01/05/21 02:56 01/05/21 02:56 Labs: Abnormal Lab Results - Last 24 Hours (Table) 01/04/21 01/04/21 01/04/21 Range/Units 09:25 09:25 10:51 WBC (3.8-10.6) k/uL Neutrophils # (1.3-7.7) k/uL Sodium (137-145) mmol/L Creatinine (0.52-1.04) mg/dL Glucose (74-99) mg/dL POC Glucose (mg/dL) 217 H (75-99) mg/dL AST (14-36) U/L ALT (4-34) U/L Troponin I 0.098 H* (0.000-0.034) ng/mL Triglycerides 182.0 H (0.0-149.0) mg/dL 01/04/21 01/04/21 01/04/21 Range/Units 12:32 16:49 17:24 WBC (3.8-10.6) k/uL Neutrophils # (1.3-7.7) k/uL Sodium (137-145) mmol/L Creatinine (0.52-1.04) mg/dL Glucose (74-99) mg/dL POC Glucose (mg/dL) 226 H (75-99) mg/dL AST (14-36) U/L ALT (4-34) U/L Troponin I 46.800 H* 111.000 H* (0.000-0.034) ng/mL Triglycerides (0.0-149.0) mg/dL 01/04/21 01/05/21 01/05/21 Range/Units 21:07 02:56 02:56 WBC 14.6 H (3.8-10.6) k/uL Neutrophils # 12.2 H (1.3-7.7) k/uL Sodium 136 L (137-145) mmol/L Creatinine 0.41 L (0.52-1.04) mg/dL Glucose 194 H (74-99) mg/dL POC Glucose (mg/dL) 197 H (75-99) mg/dL AST 456 H (14-36) U/L ALT 87 H (4-34) U/L Troponin I (0.000-0.034) ng/mL Triglycerides (0.0-149.0) mg/dL 01/05/21 Range/Units 06:51 WBC (3.8-10.6) k/uL Neutrophils # (1.3-7.7) k/uL Sodium (137-145) mmol/L Creatinine (0.52-1.04) mg/dL Glucose (74-99) mg/dL POC Glucose (mg/dL) 174 H (75-99) mg/dL AST (14-36) U/L ALT (4-34) U/L Troponin I (0.000-0.034) ng/mL Triglycerides (0.0-149.0) mg/dL Assessment and Plan Plan: 1. Acute ST elevation myocardial infarction 2. Critical stenosis in the proximal LAD status post angioplasty and stent placement on presentation 3. Leukocytosis, could be related to pulmonic infiltrate versus gallbladder disease, will start IV Rocephin and consult infectious disease 4. Elevated liver enzymes 5. Abnormal gallbladder ultrasound done on 12/18/2020 revealing multiple gallstones 6. Underlying history of hypertension 7. Underlying history of hyperlipidemia 8. Underlying history of statin intolerance 9. Underlying history of suq-hgzuknt-htqqqnemq diabetes mellitus 10. Underlying history of fibromyalgia with chronic pain 11. Evidence of 5 mm right lower lobe pulmonary nodule will follow closely in the subacute period. At this time patient is admitted to intensive care unit She is maintained on aspirin, Brillinta, metoprolol, she was also started on a low-dose of Lipitor despite history of intolerance to statins, patient will be monitored closely in ICU, she is also receiving Zetia Metformin is on hold at this time A1c 6.0 Will cover with insulin sliding scale Will follow closely during this admission
[2021-01-05] MEDS: SPIRONOLACTONE 25 MG TAB PO SCH (09:58)
[2021-01-05 11:54] LABS: Glucose,Whole Blood 136 mg/dL (75-99)
--- NOTE | 2021-01-05 15:14 | US ---
EXAMINATION TYPE: US liver DATE OF EXAM: 01/05/2021 COMPARISON: US CLINICAL HISTORY: elevated liver enzymes. Elevated LFT's, pain EXAM MEASUREMENTS: Liver Length: 14.5 cm Gallbladder Wall: 0.3 cm CBD: 0.5 cm Right Kidney: 10.5 x 4.8 x 4.9 cm Pancreas: Obscured by bowel gas Liver: Limited visualization appeare wnl Gallbladder: Distended with multiple gallstones at neck, pt unable to roll LLD Evidence for sonographic Kasper's sign: Yes CBD: wnl Right Kidney: wnl Gallstones, similar findings to recent US IMPRESSION: 1. Stable cholelithiasis without complicating factor at this time.
[2021-01-05 16:51] LABS: Glucose,Whole Blood 132 mg/dL (75-99)
[2021-01-05 20:55] LABS: Glucose,Whole Blood 122 mg/dL (75-99)
[2021-01-05] MEDS: AMITRIPTYLINE HCL 10 MG TAB PO SCH (20:58)
[2021-01-05] MEDS: ALPRAZolam 1 MG TAB PO SCH (20:58)
--- NOTE | 2021-01-05 21:50 | P.CONS ---
History of Present Illness - Reason for Consult Consult date: 01/05/21 Leukocytosis Requesting physician: Stacie López - Chief Complaint chest pain x 1 day - History of Present Illness Patient is a 75-year female presenting to the ER yesterday morning for evaluation of chest pain that started the day of presentation to the hospital p atient described the pain to be more of a sharp in nature intensity almost 7-8 out of 10 and no radiation, did have associated shortness of breath no significant cough or sputum production some nausea but no vomiting did have some cold sweats but denies high-grade fever with the symptoms the patient was evaluated by the ER physician on arrival to the ER patient was afebrile and no fever has been recorded subsequently patient did have a white count of 13.4 admission that is up to 14.6 today that has prompted this infectious disease consultation patient did have elevated liver enzymes kidney function is normal the patient did have a acute coronary syndrome status post PTCA and stenting to the LAD infectious was consulted because of her elevated white count patient apparently did have gallstone she was supposed to undergo cholecystectomy with Dr. banegas this week patient did have an ultrasound of the liver gallbladder which did shows a distended gallbladder with multiple stones in the neck of the gallbladder as well Review of Systems Positive point has been mentioned in the HPI rest of the systems are negative Past Medical History Past Medical History: Unable to Obtain History of Any Multi-Drug Resistant Organisms: None Reported Past Surgical History: Unable to Obtain Additional Past Surgical History / Comment(s): Hysterectomy 1986 Past Anesthesia/Blood Transfusion Reactions: No Reported Reaction Past Psychological History: No Psychological Hx Reported Smoking Status: Never smoker Past Alcohol Use History: None Reported Past Drug Use History: None Reported - Past Family History Mother Family Medical History: Cancer Father Family Medical History: Cancer Medications and Allergies Home Medications Medication Instructions Recorded Confirmed Type ALPRAZolam [Xanax] 1 mg PO BID 01/04/21 01/04/21 History Amitriptyline HCl 50 mg PO HS 01/04/21 01/04/21 History Dorzolamide HCl/Pf [Dorzolamide 2% 1 drop BOTH EYES BID 01/04/21 01/04/21 History Eye Drop] Ergocalciferol (Vitamin D2) 1,250 mcg PO WEEKLY 01/04/21 01/04/21 History [Drisdol (50,000 Iu)] HYDROcodone/APAP 10-325MG [[place] 2 tab PO Q8H PRN 01/04/21 01/04/21 History 10-325] Levothyroxine Sodium [Synthroid] 25 mcg PO DAILY 01/04/21 01/04/21 History metFORMIN HCL [Glucophage] 500 mg PO DAILY 01/04/21 01/04/21 History Allergies Allergy/AdvReac Type Severity Reaction Status Date / Time aspirin AdvReac Abdominal Verified 01/04/21 09:24 Pain atorvastatin [From Lipitor] AdvReac Abdominal Verified 01/04/21 09:24 Pain NSAIDS (Non-Steroidal AdvReac Abdominal Verified 01/04/21 09:24 Anti-Inflamma Pain Msroluv-Ygr-Hxr Reductase AdvReac Abdominal Verified 01/04/21 09:24 Inhibitor Pain Physical Exam Vitals: Vital Signs Temp Pulse Resp BP Pulse Ox 01/05/21 14:00 104 H 19 132/82 92 L 01/05/21 13:00 106 H 13 118/81 91 L 01/05/21 12:00 97.9 F 98 16 111/65 92 L 01/05/21 11:00 100 16 125/67 92 L 01/05/21 10:00 101 H 19 126/79 93 L 01/05/21 09:00 100 11 L 140/80 94 L 01/05/21 08:00 98.2 F 101 H 16 132/76 95 01/05/21 07:00 101 H 12 143/99 92 L 01/05/21 06:00 104 H 12 143/84 93 L 01/05/21 05:00 100 15 148/84 94 L 01/05/21 04:00 107 H 22 135/81 93 L 01/05/21 03:00 96 15 134/80 01/05/21 02:00 101 H 14 147/81 94 L 01/05/21 01:00 105 H 13 149/87 96 01/05/21 00:00 105 H 15 147/88 94 L 01/04/21 23:00 103 H 12 140/87 94 L 01/04/21 22:00 98 12 129/100 94 L 01/04/21 21:00 105 H 16 139/81 95 01/04/21 20:00 97.9 F 101 H 14 135/74 93 L 01/04/21 19:00 105 H 18 135/74 93 L 01/04/21 18:00 106 H 15 129/73 94 L 01/04/21 17:00 106 H 17 94 L 01/04/21 16:00 113 H 12 119/82 94 L Intake and Output 01/05/21 01/05/21 01/05/21 06:59 14:59 22:59 Intake Total 200 Output Total 275 0 Balance -275 200 Intake: IV 50 cefTRIAXone 1 gm In 50 Sodium Chloride 0.9% 50 ml @ 100 mls/hr IVPB Q24HR [facility] Rx#:[id number] Oral 150 Output: Urine 275 0 Other: Voiding Method Bedside Commode Bedside Commode # Voids 0 Weight 69.3 kg GENERAL DESCRIPTION: An elderly female lying in bed, no distress. No tachypnea or accessory muscle of respiration use. HEENT: Shows Pallor , no scleral icterus. Oral mucous membrane is dry. No pharyngeal erythema or thrush NECK: Trachea central, no thyromegaly. LUNGS: Unlabored breathing. Clear to auscultation anteriorly. No wheeze or crackle. HEART: S1, S2, regular rate and rhythm. No loud murmur ABDOMEN: Soft, no tenderness , guarding or rigidity, no organomegaly EXTREMITIES: No edema of feet. SKIN: No rash, no masses palpable. NEUROLOGICAL: The patient is awake, alert, oriented x3, mood and affect normal. Results CBC & Chem 7: 01/05/21 02:56 01/05/21 02:56 Labs: Abnormal Lab Results - Last 24 Hours (Table) 01/04/21 01/04/21 01/04/21 Range/Units 09:25 16:49 17:24 WBC (3.8-10.6) k/uL Neutrophils # (1.3-7.7) k/uL Sodium (137-145) mmol/L Creatinine (0.52-1.04) mg/dL Glucose (74-99) mg/dL POC Glucose (mg/dL) 226 H (75-99) mg/dL AST (14-36) U/L ALT (4-34) U/L Troponin I 111.000 H* (0.000-0.034) ng/mL Triglycerides 182.0 H (0.0-149.0) mg/dL 01/04/21 01/05/21 01/05/21 Range/Units 21:07 02:56 02:56 WBC 14.6 H (3.8-10.6) k/uL Neutrophils # 12.2 H (1.3-7.7) k/uL Sodium 136 L (137-145) mmol/L Creatinine 0.41 L (0.52-1.04) mg/dL Glucose 194 H (74-99) mg/dL POC Glucose (mg/dL) 197 H (75-99) mg/dL AST 456 H (14-36) U/L ALT 87 H (4-34) U/L Troponin I (0.000-0.034) ng/mL Triglycerides (0.0-149.0) mg/dL 01/05/21 01/05/21 Range/Units 06:51 11:53 WBC (3.8-10.6) k/uL Neutrophils # (1.3-7.7) k/uL Sodium (137-145) mmol/L Creatinine (0.52-1.04) mg/dL Glucose (74-99) mg/dL POC Glucose (mg/dL) 174 H 136 H (75-99) mg/dL AST (14-36) U/L ALT (4-34) U/L Troponin I (0.000-0.034) ng/mL Triglycerides (0.0-149.0) mg/dL Assessment and Plan Assessment: patient with leukocytosis which is likely multifactorial possibly reactive in this patient with acute SC status post PTCA stenting of LAD patient also have multiple gallstones with one in the neck of the gallbladder underlying cholecystitis could be the likely etiology of this elevated white count and will need to go for the enteric gram-negative to be the likely pathogen (1) Leukocytosis Current Visit: Yes Status: Acute Code(s): D72.829 - ELEVATED WHITE BLOOD CELL COUNT, UNSPECIFIED SNOMED Code(s): 681050002 Plan: 1-Rocephin 1 g IV daily to continue 2-obtain blood cultures the patient spiked a fever 100.4 degrees Fahrenheit We will follow on clinical condition and cultures to further adjust medication if needed Thank you for this consultation we will follow the patient along with you Time with Patient: Greater than 30
[2021-01-06] MEDS: ONDANSETRON 4 MG/2 ML VIAL IVP PRN (01:25)
[2021-01-06] MEDS: HYDROmorphone 0.5 MG/0.5 ML SYRINGE IVP PRN ×5 (01:25→23:54)
[2021-01-06 04:27] LABS: Basophils % (A) 0 %; Eosinophils # (A) 0.1 k/uL (0-0.7); Eosinophils % (A) 0 %; HCT 38.7 % (34.0-46.0); HGB 12.3 gm/dL (11.4-16.0); Lymphocytes % (A) 14 %; MCH 28.9 pg (25.0-35.0); MCHC 31.9 g/dL (31.0-37.0); MCV 90.8 fL (80.0-100.0); Mean Platelet Volume 7.4; Monocytes # (A) 0.7 k/uL (0-1.0); Monocytes % (A) 5 %; Neutrophils # (A) 11.7 k/uL (1.3-7.7); Neutrophils % (A) 80 %; Platelet Count 336 k/uL (150-450); RBC 4.26 m/uL (3.80-5.40); RDW 14.2 % (11.5-15.5); WBC 14.7 k/uL (3.8-10.6)
[2021-01-06 05:12] LABS: ALT 61 U/L (4-34); AST 157 U/L (14-36); African American GFR (CKD) >90 (>60 ml/min/1.73 sqM); Albumin 3.5 g/dL (3.5-5.0); Alkaline Phosphatase 64 U/L (38-126); Anion Gap 6 mmol/L; Blood Urea Nitrogen 18 mg/dL (7-17); Calcium 9.2 mg/dL (8.4-10.2); Carbon Dioxide 25 mmol/L (22-30); Chloride 100 mmol/L (98-107); Glucose 119 mg/dL (74-99); Non-African American GFR(CKD) >90 (>60 ml/min/1.73 sqM); Potassium 4.6 mmol/L (3.5-5.1); Sodium 131 mmol/L (137-145); Total Bilirubin 0.8 mg/dL (0.2-1.3); Total Protein 5.8 g/dL (6.3-8.2)
[2021-01-06 07:03] LABS: Glucose,Whole Blood 112 mg/dL (75-99)
[2021-01-06] MEDS: INSULIN ASPART (NovoLOG) 100 UNIT/ML VIAL SQ SCH ×4 (07:06→21:06)
[2021-01-06] MEDS: HYDROcodone/APAP 10-325MG 1 EACH TAB PO PRN ×4 (08:31→21:05)
[2021-01-06] MEDS: TICAGRELOR 90 MG TAB PO SCH ×2 (08:32→21:04)
[2021-01-06] MEDS: lisinopriL 5 MG TAB PO SCH (08:32)
[2021-01-06] MEDS: SPIRONOLACTONE 25 MG TAB PO SCH (08:32)
[2021-01-06] MEDS: ASPIRIN 81 MG PO SCH (08:32)
[2021-01-06] MEDS: METOPROLOL TARTRATE 25 MG TAB PO SCH ×2 (08:32→21:03)
[2021-01-06] MEDS: EZETIMIBE 10 MG TAB PO SCH (08:42)
--- NOTE | 2021-01-06 09:58 | P.PN ---
Subjective This is a pleasant 75-year-old female past medical history significant for hypertension, dyslipidemia and diabetes mellitus. She presented to the hospital with acute anterior myocardial infarction and underwent stenting of her subtotally occluded LAD. She also had significant disease in the RCA. Echocardiogram revealed impaired LV systolic function with ejection fraction 30- 35% with anterior apical and anteroseptal hypokinesia. She is seen and examined resting comfortably sitting up in bed in no acute distress. She denies symptoms of chest discomfort or shortness of breath. Lipitor is currently on hold secondary to abnormal liver enzymes. Ultrasound of the liver performed yesterday revealed stable cholelithiasis. Blood pressure 114/65 heart rate 89 afebrile maintaining oxygen saturation on nasal cannula. Laboratory data reviewed, WBC 14.7, hemoglobin 12.3, platelets 336, sodium 131, potassium 4.6, creatinine 0.48, AST 157 and ALT 61. Currently maintained on aspirin 81 mg daily, metoprolol 25 mg twice a day, Aldactone 25 mg daily and Brilinta 90 mg twice a day. ASSESSMENT Acute anterior wall myocardial infarction status post PCI to the LAD with obstructive disease of the RCA Ischemic cardiomyopathy Leukocytosis Chronic cholelithiasis Transaminitis Diabetes mellitus Dyslipidemia PLAN Add lisinopril 5 mg daily to her regimen. Continue to increase activity and ambulation as tolerated. Overall clinically stable from a cardiac perspective. She will require PCI of RCA, this will be set up as an outpatient. Once cleared by all other consultants the patient can be discharged home. Nurse Practitioner note has been reviewed, I agree with a documented findings and plan of care. Patient was seen and examined. Objective - Vital Signs Vital signs: Vital Signs Temp 98.3 F 01/05/21 20:00 Pulse 89 01/06/21 07:00 Resp 15 01/06/21 07:00 BP 114/65 01/06/21 07:00 Pulse Ox 97 01/06/21 07:00 Intake & Output 01/05/21 01/06/21 01/06/21 18:59 06:59 18:59 Intake Total 300 Output Total 500 500 0 Balance -200 -500 0 Weight 71.2 kg Intake: IV 50 cefTRIAXone 1 gm In 50 Sodium Chloride 0.9% 50 ml @ 100 mls/hr IVPB Q24HR FIDEL Rx#:[id number] Oral 250 Output: Urine 500 500 0 Other: Voiding Method Toilet Toilet # Voids 0 1 - Labs CBC & Chem 7: 01/06/21 04:09 01/06/21 04:09 Labs: Abnormal Lab Results - Last 24 Hours (Table) 01/05/21 01/05/21 01/05/21 Range/Units 11:53 16:50 20:53 WBC (3.8-10.6) k/uL Neutrophils # (1.3-7.7) k/uL Sodium (137-145) mmol/L BUN (7-17) mg/dL Creatinine (0.52-1.04) mg/dL Glucose (74-99) mg/dL POC Glucose (mg/dL) 136 H 132 H 122 H (75-99) mg/dL AST (14-36) U/L ALT (4-34) U/L Total Protein (6.3-8.2) g/dL 01/06/21 01/06/21 01/06/21 Range/Units 04:09 04:09 07:02 WBC 14.7 H (3.8-10.6) k/uL Neutrophils # 11.7 H (1.3-7.7) k/uL Sodium 131 L (137-145) mmol/L BUN 18 H (7-17) mg/dL Creatinine 0.48 L (0.52-1.04) mg/dL Glucose 119 H (74-99) mg/dL POC Glucose (mg/dL) 112 H (75-99) mg/dL AST 157 H (14-36) U/L ALT 61 H (4-34) U/L Total Protein 5.8 L (6.3-8.2) g/dL
[2021-01-06] MEDS ORDERED: DEXTROSE 5% IN WATER 100 ML with AMIODARONE 150 MG IV ONE (10:07)
[2021-01-06] MEDS ORDERED: AMIODARONE 360 MG in DEXTROSE 5% IN WATER 200 ML IV ONE ×2 (10:07)
[2021-01-06 11:25] LABS: Glucose,Whole Blood 194 mg/dL (75-99)
--- NOTE | 2021-01-06 15:00 | P.GSCN ---
<Ana Pna - Last Filed: 01/06/21 14:36> History of Present Illness Consult date: 01/06/21 History of present illness: CHIEF COMPLAINT: Chest pain Reason for consult: Cholelithiasis HISTORY OF PRESENT ILLNESS: This is a 75-year-old female with a known past medical history of gallstones, diabetes mellitus, hypertension, hyperlipidemia and fibromyalgia. Her past surgical history includes hysterectomy. Patient presented to the emergency room on 01/04/2021 for an acute STEMI. She had been complaining of chest pain in the center of her chest. She was diagnosed with acute anterior myocardial infarction and is status post PCI to the LAD with obstructive disease of the RCA. She also has ischemic cardiomyopathy with an EF of 30-35% with anterior apical and anterior septal hypokinesia noted on echo. Patient has also gone into new atrial fibrillation with rapid ventricular response and his been placed on amiodarone drip. Patient has been admitted to the ICU and remains in the ICU. Patient has been having elevated LFTs and White count also elevated at 14.7. Liver ultrasound completed showing stable cholelithiasis. It also mentioned a distended gallbladder with multiple gal lstones at neck and positive Kasper sign. Patient recently had ultrasound of abdomen on 12/18/2020 that had showed multiple gallstones and sludge within the gallbladder. And gallstones within the neck of the gallbladder which are mobile. Patient initially had appointment with Dr. Sutton in the outpatient setting for gallstones scheduled for this Wednesday. Patient denies having right upper quadrant pain. She does have episodes of nausea occasionally. Appetite has been diminished. However, she reports that she is able to eat small amounts of food without abdominal pain or vomiting. She has been following a low-fat diet at home. She denies any fever, chills or sweats. She does feel that she is having a fibromyalgia flareup. PAST MEDICAL HISTORY: See list. PAST SURGICAL HISTORY: See list. MEDICATIONS: See list. ALLERGIES: See list. SOCIAL HISTORY: No illicit drug use. REVIEW OF SYSTEMS: CONSTITUTIONAL: Denies fever or chills. HEENT: Denies blurred vision, vision changes, or eye pain. Denies hemoptysis CARDIOVASCULAR: Denies chest pain or pressure. RESPIRATORY: No shortness of breath. GASTROINTESTINAL: See HPI for pertinent findings HEMATOLOGIC: Denies bleeding disorders. GENITOURINARY: Denies any blood in urine or increased urinary frequency. SKIN: Denies pruitis. Denies rash. PHYSICAL EXAM: VITAL SIGNS: Reviewed GENERAL: Well-developed in no acute distress. HEENT: No sclera icterus. Extraocular movements grossly intact. Moist buccal mucosa. Head is atraumatic, normocephalic. No nasal drainage. ABDOMEN: Soft. Nondistended. Nontender NEUROLOGIC: Alert and oriented. Cranial nerves II through XII grossly intact. LABORATORY DATA: WBC 14.7 hemoglobin 12.3 platelets 336 sodium 131 potassium 4.6 BUN 18 creatinine 0.48 glucose 119 AST 456 down to 157 ALT 87 down to 61 total bilirubin 0.8 alk phos 64 A1c 6.0 Elevated troponins IMAGING: Liver ultrasound showing stable cholelithiasis. It also mentioned a distended gallbladder with multiple gallstones at neck and positive Kasper sign. Patient recently had ultrasound of abdomen on 12/18/2020 that had showed multiple gallstones and sludge within the gallbladder. And gallstones within t he neck of the gallbladder which are mobile. ASSESSMENT: 1. Cholelithiasis with distended gallbladder and multiple gallstones at neck with positive Kasper sign noted on ultrasound. 2. Elevated LFTs 3. Acute anterior wall myocardial infarction status post PCI to the LAD with obstructive disease of the RCA. On Brilenta and aspirin. Followed by cardiology. Cardiology planning PCI of RCA in the outpatient setting. 4. New Atrial fibrillation with rapid ventricular response 5. Ischemic cardiomyopathy PLAN: -Recommend low-fat diet -Continue to monitor LFTs and leukocytosis -Antibiotics per ID -Continue supportive care -Further recommendations forthcoming per surgeon Physician Automation/Controls Manager note has been reviewed by physician. Signing provider agrees with the documented findings, assessment, and plan of care. Past Medical History Past Medical History: Unable to Obtain History of Any Multi-Drug Resistant Organisms: None Reported Past Surgical History: Unable to Obtain Additional Past Surgical History / Comment(s): Hysterectomy 1987 Past Anesthesia/Blood Transfusion Reactions: No Reported Reaction Past Psychological History: No Psychological Hx Reported Smoking Status: Never smoker Past Alcohol Use History: None Reported Past Drug Use History: None Reported - Past Family History Mother Family Medical History: Cancer Father Family Medical History: Cancer Medications and Allergies Home Medications Medication Instructions Recorded Confirmed Type ALPRAZolam [Xanax] 1 mg PO BID 01/04/21 01/04/21 History Amitriptyline HCl 50 mg PO HS 01/04/21 01/04/21 History Dorzolamide HCl/Pf [Dorzolamide 2% 1 drop BOTH EYES BID 01/04/21 01/04/21 History Eye Drop] Ergocalciferol (Vitamin D2) 1,250 mcg PO WEEKLY 01/04/21 01/04/21 History [Drisdol (50,000 Iu)] HYDROcodone/APAP 10-325MG [[place] 2 tab PO Q8H PRN 01/04/21 01/04/21 History 10-325] Levothyroxine Sodium [Synthroid] 25 mcg PO DAILY 01/04/21 01/04/21 History metFORMIN HCL [Glucophage] 500 mg PO DAILY 01/04/21 01/04/21 History Ticagrelor [Brilinta] 90 mg PO BID #60 tab 01/06/21 Rx Allergies Allergy/AdvReac Type Severity Reaction Status Date / Time aspirin AdvReac Abdominal Verified 01/04/21 09:24 Pain atorvastatin [From Lipitor] AdvReac Abdominal Verified 01/04/21 09:24 Pain NSAIDS (Non-Steroidal AdvReac Abdominal Verified 01/04/21 09:24 Anti-Inflamma Pain Gdpjwqv-Rct-Wjz Reductase AdvReac Abdominal Verified 01/04/21 09:24 Inhibitor Pain Surgical - Exam Vital Signs Temp Pulse Resp BP Pulse Ox 97.4 F L 93 16 111/67 99 01/04/21 09:15 01/04/21 09:15 01/04/21 09:15 01/04/21 09:15 01/04/21 09:15 Results - Labs 01/06/21 04:09 01/06/21 04:09 Abnormal Lab Results - Last 24 Hours (Table) 01/05/21 01/05/21 01/06/21 Range/Units 16:50 20:53 04:09 WBC (3.8-10.6) k/uL Neutrophils # (1.3-7.7) k/uL Sodium 131 L (137-145) mmol/L BUN 18 H (7-17) mg/dL Creatinine 0.48 L (0.52-1.04) mg/dL Glucose 119 H (74-99) mg/dL POC Glucose (mg/dL) 132 H 122 H (75-99) mg/dL AST 157 H (14-36) U/L ALT 61 H (4-34) U/L Total Protein 5.8 L (6.3-8.2) g/dL 01/06/21 01/06/21 01/06/21 Range/Units 04:09 07:02 11:24 WBC 14.7 H (3.8-10.6) k/uL Neutrophils # 11.7 H (1.3-7.7) k/uL Sodium (137-145) mmol/L BUN (7-17) mg/dL Creatinine (0.52-1.04) mg/dL Glucose (74-99) mg/dL POC Glucose (mg/dL) 112 H 194 H (75-99) mg/dL AST (14-36) U/L ALT (4-34) U/L Total Protein (6.3-8.2) g/dL Diabetes panel 01/06/21 Range/Units 04:09 Sodium 131 L (137-145) mmol/L Potassium 4.6 (3.5-5.1) mmol/L Chloride 100 (98-107) mmol/L Carbon Dioxide 25 (22-30) mmol/L BUN 18 H (7-17) mg/dL Creatinine 0.48 L (0.52-1.04) mg/dL Glucose 119 H (74-99) mg/dL Calcium 9.2 (8.4-10.2) mg/dL AST 157 H (14-36) U/L ALT 61 H (4-34) U/L Alkaline Phosphatase 64 (38-126) U/L Total Protein 5.8 L (6.3-8.2) g/dL Albumin 3.5 (3.5-5.0) g/dL Calcium panel 01/06/21 Range/Units 04:09 Calcium 9.2 (8.4-10.2) mg/dL Albumin 3.5 (3.5-5.0) g/dL Pituitary panel 01/06/21 Range/Units 04:09 Sodium 131 L (137-145) mmol/L Potassium 4.6 (3.5-5.1) mmol/L Chloride 100 (98-107) mmol/L Carbon Dioxide 25 (22-30) mmol/L BUN 18 H (7-17) mg/dL Creatinine 0.48 L (0.52-1.04) mg/dL Glucose 119 H (74-99) mg/dL Calcium 9.2 (8.4-10.2) mg/dL Adrenal panel 01/06/21 Range/Units 04:09 Sodium 131 L (137-145) mmol/L Potassium 4.6 (3.5-5.1) mmol/L Chloride 100 (98-107) mmol/L Carbon Dioxide 25 (22-30) mmol/L BUN 18 H (7-17) mg/dL Creatinine 0.48 L (0.52-1.04) mg/dL Glucose 119 H (74-99) mg/dL Calcium 9.2 (8.4-10.2) mg/dL Total Bilirubin 0.8 (0.2-1.3) mg/dL AST 157 H (14-36) U/L ALT 61 H (4-34) U/L Alkaline Phosphatase 64 (38-126) U/L Total Protein 5.8 L (6.3-8.2) g/dL Albumin 3.5 (3.5-5.0) g/dL <Ivan Sutton - Last Filed: 01/06/21 15:51> History of Present Illness History of present illness: As above. Patient with recent findings of gallstones. Debatable whether the patient's recent symptoms have been cardiac in origin or related to her known cholelithiasis. The patient states she had pain at the rib cage during her ultr asound where the pbx technician thought her gallbladder was tender. In either case no immediate plans for surgical intervention. We'll follow closely with you. Follow liver enzymes but likely related to recent acute [place]. Surgical - Exam Vital Signs Temp Pulse Resp BP Pulse Ox 97.4 F L 93 16 111/67 99 01/04/21 09:15 01/04/21 09:15 01/04/21 09:15 01/04/21 09:15 01/04/21 09:15 Results - Labs 01/06/21 04:09 01/06/21 04:09 Abnormal Lab Results - Last 24 Hours (Table) 01/05/21 01/05/21 01/06/21 Range/Units 16:50 20:53 04:09 WBC (3.8-10.6) k/uL Neutrophils # (1.3-7.7) k/uL Sodium 131 L (137-145) mmol/L BUN 18 H (7-17) mg/dL Creatinine 0.48 L (0.52-1.04) mg/dL Glucose 119 H (74-99) mg/dL POC Glucose (mg/dL) 132 H 122 H (75-99) mg/dL AST 157 H (14-36) U/L ALT 61 H (4-34) U/L Total Protein 5.8 L (6.3-8.2) g/dL 01/06/21 01/06/21 01/06/21 Range/Units 04:09 07:02 11:24 WBC 14.7 H (3.8-10.6) k/uL Neutrophils # 11.7 H (1.3-7.7) k/uL Sodium (137-145) mmol/L BUN (7-17) mg/dL Creatinine (0.52-1.04) mg/dL Glucose (74-99) mg/dL POC Glucose (mg/dL) 112 H 194 H (75-99) mg/dL AST (14-36) U/L ALT (4-34) U/L Total Protein (6.3-8.2) g/dL Diabetes panel 01/06/21 Range/Units 04:09 Sodium 131 L (137-145) mmol/L Potassium 4.6 (3.5-5.1) mmol/L Chloride 100 (98-107) mmol/L Carbon Dioxide 25 (22-30) mmol/L BUN 18 H (7-17) mg/dL Creatinine 0.48 L (0.52-1.04) mg/dL Glucose 119 H (74-99) mg/dL Calcium 9.2 (8.4-10.2) mg/dL AST 157 H (14-36) U/L ALT 61 H (4-34) U/L Alkaline Phosphatase 64 (38-126) U/L Total Protein 5.8 L (6.3-8.2) g/dL Albumin 3.5 (3.5-5.0) g/dL Calcium panel 01/06/21 Range/Units 04:09 Calcium 9.2 (8.4-10.2) mg/dL Albumin 3.5 (3.5-5.0) g/dL Pituitary panel 01/06/21 Range/Units 04:09 Sodium 131 L (137-145) mmol/L Potassium 4.6 (3.5-5.1) mmol/L Chloride 100 (98-107) mmol/L Carbon Dioxide 25 (22-30) mmol/L BUN 18 H (7-17) mg/dL Creatinine 0.48 L (0.52-1.04) mg/dL Glucose 119 H (74-99) mg/dL Calcium 9.2 (8.4-10.2) mg/dL Adrenal panel 01/06/21 Range/Units 04:09 Sodium 131 L (137-145) mmol/L Potassium 4.6 (3.5-5.1) mmol/L Chloride 100 (98-107) mmol/L Carbon Dioxide 25 (22-30) mmol/L BUN 18 H (7-17) mg/dL Creatinine 0.48 L (0.52-1.04) mg/dL Glucose 119 H (74-99) mg/dL Calcium 9.2 (8.4-10.2) mg/dL Total Bilirubin 0.8 (0.2-1.3) mg/dL AST 157 H (14-36) U/L ALT 61 H (4-34) U/L Alkaline Phosphatase 64 (38-126) U/L Total Protein 5.8 L (6.3-8.2) g/dL Albumin 3.5 (3.5-5.0) g/dL
--- NOTE | 2021-01-06 15:06 | P.CONS ---
History of Present Illness - Reason for Consult Consult date: 01/06/21 Minor liver enzymes Requesting physician: Stacie López - Chief Complaint chest pain - History of Present Illness This is a 75-year-old white female who presented to the emergency department with chest pain. She has a past medical history of hyperlipidemia. She was in acute STEMI and underwent cardiac cath with angioplasty and stent on 01/04/21. Today she went into atrial fibrillation with RVR. She was noted to have some mild elevation in her LFTs, yesterday her AST and ALT were 456, 87 respectively. Today they were noted to be decreasing AST 64, ALT 157. she denies any previous history of underlying liver disease. She denies any new medicationsStates she has been following with general surgery for gallstones. Liver ultrasound was completed states that liver looks within normal limits, stable cholelithiasis. Review of Systems REVIEW OF SYSTEMS: CARDIOPULMONARY: chest pain and shortness of breath on presentation 2 and states was having off and on for the last month. Gastrointestinal: No abdominal pain No nausea or vomiting. No hematemesis, coffee-ground emesis. No rectal bleeding, or melena. GENITOURINARY: No dysuria or hematuria. MUSCULOSKELETAL: Reports normal range of motion., Joint pain. SKIN: No rashes. No jaundice. ENDOCRINE: No chills, fevers. No excessive weight gain or loss. No polydipsia or polyuria. PSYCHIATRIC: Unremarkable. NEUROLOGY: No change in mental status. Denies dizziness, headache. ENT: Vision unremarkable. CONSTITUTIONAL: No recent weight loss. No fever, chills, night sweats. Past Medical History Past Medical History: Unable to Obtain History of Any Multi-Drug Resistant Organisms: None Reported Past Surgical History: Unable to Obtain Additional Past Surgical History / Comment(s): Hysterectomy 1987 Past Anesthesia/Blood Transfusion Reactions: No Reported Reaction Past Psychological History: No Psychological Hx Reported Smoking Status: Never smoker Past Alcohol Use History: None Reported Past Drug Use History: None Reported - Past Family History Mother Family Medical History: Cancer Father Family Medical History: Cancer Medications and Allergies Home Medications Medication Instructions Recorded Confirmed Type ALPRAZolam [Xanax] 1 mg PO BID 01/04/21 01/04/21 History Amitriptyline HCl 50 mg PO HS 01/04/21 01/04/21 History Dorzolamide HCl/Pf [Dorzolamide 2% 1 drop BOTH EYES BID 01/04/21 01/04/21 History Eye Drop] Ergocalciferol (Vitamin D2) 1,250 mcg PO WEEKLY 01/04/21 01/04/21 History [Drisdol (50,000 Iu)] HYDROcodone/APAP 10-325MG [[place] 2 tab PO Q8H PRN 01/04/21 01/04/21 History 10-325] Levothyroxine Sodium [Synthroid] 25 mcg PO DAILY 01/04/21 01/04/21 History metFORMIN HCL [Glucophage] 500 mg PO DAILY 01/04/21 01/04/21 History Ticagrelor [Brilinta] 90 mg PO BID #60 tab 01/06/21 Rx Allergies Allergy/AdvReac Type Severity Reaction Status Date / Time aspirin AdvReac Abdominal Verified 01/04/21 09:24 Pain atorvastatin [From Lipitor] AdvReac Abdominal Verified 01/04/21 09:24 Pain NSAIDS (Non-Steroidal AdvReac Abdominal Verified 01/04/21 09:24 Anti-Inflamma Pain Sncilso-Oaq-Njm Reductase AdvReac Abdominal Verified 01/04/21 09:24 Inhibitor Pain Physical Exam Vitals: Vital Signs Temp Pulse Resp BP Pulse Ox 01/06/21 07:00 89 15 114/65 97 01/06/21 06:00 84 13 107/61 97 01/06/21 05:00 87 13 112/64 97 01/06/21 04:00 86 14 114/66 97 01/06/21 03:00 90 14 111/64 96 01/06/21 02:00 93 12 119/76 95 01/06/21 01:00 105 H 19 116/69 94 L 01/06/21 00:00 99 17 122/70 96 01/05/21 23:00 101 H 13 120/71 96 01/05/21 22:00 98 16 109/77 98 01/05/21 21:00 102 H 15 107/67 97 01/05/21 20:00 98.3 F 92 13 111/66 87 L 01/05/21 19:00 99 18 111/66 95 01/05/21 18:00 94 14 121/68 96 01/05/21 17:00 92 16 111/65 94 L 01/05/21 16:00 97.9 F 102 H 20 114/72 95 01/05/21 15:00 108 H 18 131/75 93 L 01/05/21 14:00 104 H 19 132/82 92 L 01/05/21 13:00 106 H 13 118/81 91 L 01/05/21 12:00 97.9 F 98 16 111/65 92 L 01/05/21 11:00 100 16 125/67 92 L Intake and Output 01/05/21 01/06/21 01/06/21 22:59 06:59 14:59 Intake Total 100 Output Total 700 300 0 Balance -600 -300 0 Intake: Oral 100 Output: Urine 700 300 0 Other: Voiding Method Toilet Toilet # Voids 1 Weight 71.2 kg General appearance: The patient is alert, oriented, appears in no acute distress. HET: Head is normocephalic and atraumatic. Conjunctiva pink. Sclera anicteric. Neck: Supple without lymphadenopathy. Trachea midline. Heart: S1 S2. Regular rate and rhythm. Lungs: Clear to auscultation. Abdomen: Soft, nontender, nondistended with bowel sounds. No guarding or rigidity. Skin: No rashes. No jaundice. Extremities: Normal skin color and turgor. No pedal edema. Neurological: No focal deficits. Alert and oriented 3.. Results CBC & Chem 7: 01/06/21 04:09 01/06/21 04:09 Labs: Abnormal Lab Results - Last 24 Hours (Table) 01/05/21 01/05/21 01/05/21 Range/Units 11:53 16:50 20:53 WBC (3.8-10.6) k/uL Neutrophils # (1.3-7.7) k/uL Sodium (137-145) mmol/L BUN (7-17) mg/dL Creatinine (0.52-1.04) mg/dL Glucose (74-99) mg/dL POC Glucose (mg/dL) 136 H 132 H 122 H (75-99) mg/dL AST (14-36) U/L ALT (4-34) U/L Total Protein (6.3-8.2) g/dL 01/06/21 01/06/21 01/06/21 Range/Units 04:09 04:09 07:02 WBC 14.7 H (3.8-10.6) k/uL Neutrophils # 11.7 H (1.3-7.7) k/uL Sodium 131 L (137-145) mmol/L BUN 18 H (7-17) mg/dL Creatinine 0.48 L (0.52-1.04) mg/dL Glucose 119 H (74-99) mg/dL POC Glucose (mg/dL) 112 H (75-99) mg/dL AST 157 H (14-36) U/L ALT 61 H (4-34) U/L Total Protein 5.8 L (6.3-8.2) g/dL Comments: liver ultrasound: Stable cholelithiasis without complicating factor at this time. Assessment and Plan (1) Elevated LFTs Narrative/Plan: 75-year-old female who presented to the emergency department with chest pain and shortness of breath diagnosed with acute STEMI who underwent a cardiac catheterization with stent placement. She was noted to have elevation in her liver function test, she underwent a liver ultrasound showing stable biases cholelithiasis. Patient states she's been following with general surgery outpatient and is supposed to have her gallbladder removed for gallstones. She denies any underlying liver disease, denies any history of elevation in her liver enzymes. She was noted to have normal LFTs in October of this year. Likely we are dealing with hypoperfusion due to STEMI and hypotension. LFTs are already improving. Hepatitis panel ordered. Current Visit: Yes Status: Acute Code(s): R79.89 - OTHER SPECIFIED ABNORMAL FINDINGS OF BLOOD CHEMISTRY SNOMED Code(s): 507764205 (2) ST elevation myocardial infarction (STEMI) Current Visit: Yes Status: Acute Code(s): I21.3 - ST ELEVATION (STEMI) MYOCARDIAL INFARCTION OF [facility] SITE SNOMED Code(s): 73164304 Plan: 1. Repeat CMP tomorrow 2. Hepatitis panel ordered 3. Continue current ICU managment 4. Avoid hepatotoxic medications Thank you for this consultation, we will continue to follow Dr. Rl Vega I agree with the dictator's note, documented as a scribe by Norma Paredes.
[2021-01-06] MEDS: AMIODARONE 450 MG in DEXTROSE 5% IN WATER 250 ML IV SCH ×2 (16:02)
[2021-01-06 16:36] LABS: Glucose,Whole Blood 185 mg/dL (75-99)
[2021-01-06 17:11] LABS: Hepatitis A Antibody IgM Non-Reactive (Non-Reactive); Hepatitis B Core IgM Non-Reactive (Non-Reactive); Hepatitis B Surface Antigen Non-Reactive (Non-Reactive); Hepatitis C IgG Antibody Non-Reactive (Non-Reactive)
[2021-01-06] MEDS: AMPICILLIN-SULBACTAM 3 GM in SODIUM CHLORIDE 0.9% 100 ML IVPB SCH ×2 (17:41→23:54)
--- NOTE | 2021-01-06 18:01 | P.PN ---
Subjective Progress Note Date: 01/06/21 Ava Pratt is a 75 year old female who presented to [facility] emergency room with a chief complaint of chest pain, patient describes a midsternal pain that started at 557 this morning and was fairly severe up to 9 out of 10 in severity, she called EMS, she was given sublingual nitroglycerin, EKG was done via EMS and was transmitted to emergency room revealed ST elevation in anterolateral leads, a STEMI alert was called prior to patient arrival, she was taken immediately to the label machine operator, she was found to have a critical stenosis in the proximal LAD, she underwent angioplasty and stent placement, and was subsequently admitted to intensive care unit. He was evaluated in the emergency room vital examination on presentation revealed a temperature of 97.4 pulse 93 respiration 16 blood pressure 111/67 pulse ox 99% on 2 L nasal cannula Laboratory data reveals a white blood count of 13.4 hemoglobin 10.9 platelet count 270 sodium 139 potassium 3.8 BUN 12 creatinine 0.52 glucose 242 AST 98 ALT 48 troponin 0.098 Testing in the emergency room, patient had a chest x-ray that revealed a right infrahilar opacity that could be on the basis of atelectasis or pneumonia, patient also had a 5 mm nodule in the right lower third of the hemithorax. Past medical history is significant for tjl-mlkraym-zhnlmfsmo diabetes mellitus, hypertension, hyperlipidemia, vitamin D deficiency, and history of fibromyalgia. Patient also recently had a gallbladder ultrasound on 12/18/2020 that revealed multiple gallstones and sludge within the gallbladder and gallstones within the neck of the gallbladder. On 01/05/2021. Patient's alert and oriented 3. Patient reports just generalized pain related to her fibromyalgia and difficulty sleeping and hospital. Patient denies any chest pain or shortness of breath. Patient denies any nausea vomiting or diarrhea. Patient denies any urinary burning or frequency. Heart rate 101. Respiratory rate 16. Blood pressure 132/76. Oxygenation status 95% on 2 L On 01/06/2021 Patient was seen and examined on the medical floor, he is alert and oriented x 3 in no distress, he denies any complaints there is no fever or chills no headache or dizziness no chest pain no shortness of breath no palpitation no cough no nausea or vomiting no abdominal pain no diarrhea no blood in the stools no burning with urination no frequency or urgency and no hematuria, there is no weakness or numbness in any of the extremities no change in vision speech or gait. Liver enzymes improving AST 157 ALT 61 Objective - Vital Signs Vital signs: Vital Signs Temp 98.3 F 01/05/21 20:00 Pulse 135 H 01/06/21 10:53 Resp 16 01/06/21 10:53 BP 98/66 01/06/21 10:53 Pulse Ox 98 01/06/21 10:53 Intake & Output 01/05/21 01/06/21 01/06/21 18:59 06:59 18:59 Intake Total 300 Output Total 500 500 0 Balance -200 -500 0 Weight 71.2 kg Intake: IV 50 cefTRIAXone 1 gm In 50 Sodium Chloride 0.9% 50 ml @ 100 mls/hr IVPB Q24HR [facility] Rx#:[id number] Oral 250 Output: Urine 500 500 0 Other: Voiding Method Toilet Toilet # Voids 0 1 - Exam In general patient is alert and oriented x 3 in no distress HEENT head normocephalic and atraumatic Neck is supple no JVD no goiter no lymphadenopathy no carotid bruit Chest examination is clear to auscultation no crackles no wheezing Cardiac exam reveals regular heart sounds S1 and S2 no gallops no murmurs Abdomen is soft nontender no organomegaly with normal bowel sounds Extremity exam reveals no edema no cyanosis or clubbing Neurological examination reveals no gross focal deficits - Labs CBC & Chem 7: 01/06/21 04:09 01/06/21 04:09 Labs: Abnormal Lab Results - Last 24 Hours (Table) 01/05/21 01/05/21 01/06/21 Range/Units 16:50 20:53 04:09 WBC (3.8-10.6) k/uL Neutrophils # (1.3-7.7) k/uL Sodium 131 L (137-145) mmol/L BUN 18 H (7-17) mg/dL Creatinine 0.48 L (0.52-1.04) mg/dL Glucose 119 H (74-99) mg/dL POC Glucose (mg/dL) 132 H 122 H (75-99) mg/dL AST 157 H (14-36) U/L ALT 61 H (4-34) U/L Total Protein 5.8 L (6.3-8.2) g/dL 01/06/21 01/06/21 01/06/21 Range/Units 04:09 07:02 11:24 WBC 14.7 H (3.8-10.6) k/uL Neutrophils # 11.7 H (1.3-7.7) k/uL Sodium (137-145) mmol/L BUN (7-17) mg/dL Creatinine (0.52-1.04) mg/dL Glucose (74-99) mg/dL POC Glucose (mg/dL) 112 H 194 H (75-99) mg/dL AST (14-36) U/L ALT (4-34) U/L Total Protein (6.3-8.2) g/dL Assessment and Plan Plan: 1. Acute ST elevation myocardial infarction 2. Critical stenosis in the proximal LAD status post angioplasty and stent placement on presentation 3. Leukocytosis, could be related to pulmonic infiltrate versus gallbladder disease, will start IV Rocephin and consult infectious disease 4. Elevated liver enzymes 5. Abnormal gallbladder ultrasound done on 12/18/2020 revealing multiple gallstones consultation for Dr. Bethany prabhakar 6. Underlying history of hypertension 7. Underlying history of hyperlipidemia 8. Underlying history of statin intolerance 9. Underlying history of usl-lgwdwbw-ljxtolwwj diabetes mellitus 10. Underlying history of fibromyalgia with chronic pain 11. Evidence of 5 mm right lower lobe pulmonary nodule will follow closely in the subacute period. At this time patient is admitted to intensive care unit She is maintained on aspirin, Brillinta, metoprolol, she was also started on a low-dose of Lipitor despite history of intolerance to statins, patient will be monitored closely in ICU, she is also receiving Zetia Metformin is on hold at this time A1c 6.0 Will cover with insulin sliding scale Will follow closely during this admission
--- NOTE | 2021-01-06 19:41 | PN ---
PROGRESS NOTE DATE OF SERVICE: 01/06/2021 REASON FOR FOLLOWUP: Leukocytosis, possible cholecystitis. INTERVAL HISTORY: The patient is currently afebrile. The patient is breathing comfortably on room air. The patient denies having any chest pain, shortness of breath or cough. Abdominal pain has improved. No vomiting or diarrhea. PHYSICAL EXAMINATION: Blood pressure 98/66, pulse of 135, temperature is 98.3. She is 98% on 2 L nasal cannula. General description is an elderly female lying in bed in no distress. Respiratory system: Unlabored breathing, decreased breath sounds in the base, no wheeze. Heart S1, S2. Regular rate and rhythm. Abdomen soft, no tenderness. LABS: Hemoglobin is 12.8, white count 14.7, BUN of 18, creatinine 0.48. DIAGNOSTIC IMPRESSION AND PLAN: Patient with elevated white count with abnormal ultrasound of the gallbladder with multiple gallstones and culture ( ), culture for possible cholecystitis with white count worsening on Rocephin. Antibiotic adjusted to Unasyn and will be monitored closely. Continue supportive care. MMODL / IJN: [id number] /
[2021-01-06 19:57] LABS: Glucose,Whole Blood 148 mg/dL (75-99)
[2021-01-06] MEDS: ALPRAZolam 1 MG TAB PO SCH (21:03)
[2021-01-06] MEDS: AMITRIPTYLINE HCL 10 MG TAB PO SCH (21:29)
[2021-01-07] MEDS: HYDROcodone/APAP 10-325MG 1 EACH TAB PO PRN ×4 (04:43→21:19)
[2021-01-07 05:58] LABS: Glucose,Whole Blood 115 mg/dL (75-99)
[2021-01-07] MEDS: AMPICILLIN-SULBACTAM 3 GM in SODIUM CHLORIDE 0.9% 100 ML IVPB SCH ×3 (06:04→17:08)
[2021-01-07] MEDS: HYDROmorphone 0.5 MG/0.5 ML SYRINGE IVP PRN ×4 (06:04→21:29)
[2021-01-07] MEDS: INSULIN ASPART (NovoLOG) 100 UNIT/ML VIAL SQ SCH ×4 (06:15→21:13)
[2021-01-07] MEDS: AMIODARONE 450 MG in DEXTROSE 5% IN WATER 250 ML IV SCH ×2 (07:53)
[2021-01-07] MEDS: SPIRONOLACTONE 25 MG TAB PO SCH (08:30)
[2021-01-07] MEDS: lisinopriL 5 MG TAB PO SCH (08:30)
[2021-01-07] MEDS: ASPIRIN 81 MG PO SCH (08:30)
[2021-01-07] MEDS: METOPROLOL TARTRATE 25 MG TAB PO SCH ×2 (08:30→21:19)
[2021-01-07] MEDS: TICAGRELOR 90 MG TAB PO SCH ×2 (08:31→21:19)
[2021-01-07 09:42] LABS: ALT 50 U/L (4-34); AST 74 U/L (14-36); African American GFR (CKD) >90 (>60 ml/min/1.73 sqM); Albumin 3.6 g/dL (3.5-5.0); Alkaline Phosphatase 91 U/L (38-126); Anion Gap 6 mmol/L; Blood Urea Nitrogen 23 mg/dL (7-17); Calcium 9.3 mg/dL (8.4-10.2); Carbon Dioxide 28 mmol/L (22-30); Chloride 98 mmol/L (98-107); Glucose 134 mg/dL (74-99); Non-African American GFR(CKD) >90 (>60 ml/min/1.73 sqM); Potassium 4.3 mmol/L (3.5-5.1); Sodium 132 mmol/L (137-145); Total Bilirubin 0.9 mg/dL (0.2-1.3); Total Protein 5.9 g/dL (6.3-8.2)
[2021-01-07 10:16] LABS: Basophils # (A) 0.1 k/uL (0-0.2); Basophils % (A) 0 %; Eosinophils # (A) 0.1 k/uL (0-0.7); Eosinophils % (A) 0 %; HGB 12.7 gm/dL (11.4-16.0); Lymphocytes # (A) 2.7 k/uL (1.0-4.8); Lymphocytes % (A) 18 %; MCH 28.8 pg (25.0-35.0); MCHC 31.9 g/dL (31.0-37.0); MCV 90.3 fL (80.0-100.0); Mean Platelet Volume 7.8; Monocytes # (A) 0.6 k/uL (0-1.0); Monocytes % (A) 4 %; Neutrophils # (A) 11.9 k/uL (1.3-7.7); Neutrophils % (A) 77 %; Platelet Count 384 k/uL (150-450); RBC 4.43 m/uL (3.80-5.40); RDW 14.1 % (11.5-15.5); WBC 15.6 k/uL (3.8-10.6)
--- NOTE | 2021-01-07 11:10 | P.PN ---
<Ana Pan - Last Filed: 01/07/21 11:04> Subjective Progress Note Date: 01/07/21 CHIEF COMPLAINT: Cholelithiasis HISTORY OF PRESENT ILLNESS: Patient is lying in bed comfortably. She was transferred out of the ICU and is currently on cardiac floor. She denies any abdominal pain. She denies any nausea or vomiting. She is able to tolerate diet. However, she is only eating a small amount. Afebrile. WBC is up from 14.7-15.6 hemoglobin 12.7 platelets 384 sodium 132 creatinine 0.56 LFTs trending downwards and total bilirubin normal at 0.9 hepatitis panel negative PHYSICAL EXAM: VITAL SIGNS: Reviewed. GENERAL: Well-developed in no acute distress. HEENT: No sclera icterus. Extraocular movements grossly intact. Moist buccal mucosa. Head is atraumatic, normocephalic. ABDOMEN: Soft. Nondistended. Nontender. NEUROLOGIC: Alert and oriented. Cranial nerves II through XII grossly intact. ASSESSMENT: 1. Cholelithiasis with distended gallbladder 2. Elevated LFTs 3. Acute anterior wall myocardial infarction status post stent to the LAD with obstructive disease of the RCA. On Brilenta and aspirin. Followed by cardiology. Cardiology planning PCI of RCA in the outpatient setting. 4. New Atrial fibrillation with rapid ventricular response 5. Ischemic cardiomyopathy PLAN: -No surgical intervention planned -Continue low-fat diet -Continue to monitor WBC and LFTs -Antibiotics per ID Physician Supervisor Dry Paste note has been reviewed by physician. Signing provider agrees with the documented findings, assessment, and plan of care. Objective - Vital Signs Vital signs: Vital Signs Temp 98.0 F 01/07/21 08:00 Pulse 84 01/07/21 08:00 Resp 16 01/07/21 08:00 BP 101/60 01/07/21 08:00 Pulse Ox 98 01/07/21 08:00 Intake & Output 01/06/21 01/07/21 01/07/21 18:59 06:59 18:59 Intake Total 0 233.06 240 Output Total 0 Balance 0 233.06 240 Weight 73.5 kg Intake: Intake, IV Titration 233.06 Amount Amiodarone 450 mg In 233.06 Dextrose 5% in Water 250 ml @ 0.5 MG/MIN 16.667 mls/hr IV .Q15H [facility] Rx#: [id number] Oral 0 240 Output: Urine 0 Other: Voiding Method Toilet Toilet Toilet # Voids 1 2 - Labs CBC & Chem 7: 01/07/21 08:53 01/07/21 08:53 Labs: Abnormal Lab Results - Last 24 Hours (Table) 01/06/21 01/06/21 01/06/21 Range/Units 11:24 16:34 19:55 WBC (3.8-10.6) k/uL Neutrophils # (1.3-7.7) k/uL Sodium (137-145) mmol/L BUN (7-17) mg/dL Glucose (74-99) mg/dL POC Glucose (mg/dL) 194 H 185 H 148 H (75-99) mg/dL AST (14-36) U/L ALT (4-34) U/L Total Protein (6.3-8.2) g/dL 01/07/21 01/07/21 01/07/21 Range/Units 05:56 08:53 08:53 WBC 15.6 H (3.8-10.6) k/uL Neutrophils # 11.9 H (1.3-7.7) k/uL Sodium 132 L (137-145) mmol/L BUN 23 H (7-17) mg/dL Glucose 134 H (74-99) mg/dL POC Glucose (mg/dL) 115 H (75-99) mg/dL AST 74 H (14-36) U/L ALT 50 H (4-34) U/L Total Protein 5.9 L (6.3-8.2) g/dL <Ivan Sutton - Last Filed: 01/07/21 12:16> Subjective Patient doing well today. Denies abdominal pain. Liver enzymes improving. We'll sign off. Please call if needed. Objective - Vital Signs Vital signs: Vital Signs Temp 98.2 F 01/07/21 11:31 Pulse 81 01/07/21 11:31 Resp 16 01/07/21 11:31 BP 114/66 01/07/21 11:31 Pulse Ox 98 01/07/21 11:31 Intake & Output 01/06/21 01/07/21 01/07/21 18:59 06:59 18:59 Intake Total 0 233.06 240 Output Total 0 Balance 0 233.06 240 Weight 73.5 kg Intake: Intake, IV Titration 233.06 Amount Amiodarone 450 mg In 233.06 Dextrose 5% in Water 250 ml @ 0.5 MG/MIN 16.667 mls/hr IV .Q15H [facility] Rx#: [id number] Oral 0 240 Output: Urine 0 Other: Voiding Method Toilet Toilet Toilet # Voids 1 2 - Labs CBC & Chem 7: 01/07/21 08:53 01/07/21 08:53 Labs: Abnormal Lab Results - Last 24 Hours (Table) 01/06/21 01/06/21 01/07/21 Range/Units 16:34 19:55 05:56 WBC (3.8-10.6) k/uL Neutrophils # (1.3-7.7) k/uL Sodium (137-145) mmol/L BUN (7-17) mg/dL Glucose (74-99) mg/dL POC Glucose (mg/dL) 185 H 148 H 115 H (75-99) mg/dL AST (14-36) U/L ALT (4-34) U/L Total Protein (6.3-8.2) g/dL 01/07/21 01/07/21 01/07/21 Range/Units 08:53 08:53 11:24 WBC 15.6 H (3.8-10.6) k/uL Neutrophils # 11.9 H (1.3-7.7) k/uL Sodium 132 L (137-145) mmol/L BUN 23 H (7-17) mg/dL Glucose 134 H (74-99) mg/dL POC Glucose (mg/dL) 128 H (75-99) mg/dL AST 74 H (14-36) U/L ALT 50 H (4-34) U/L Total Protein 5.9 L (6.3-8.2) g/dL
[2021-01-07 11:25] LABS: Glucose,Whole Blood 128 mg/dL (75-99)
[2021-01-07] MEDS: EZETIMIBE 10 MG TAB PO SCH (11:28)
--- NOTE | 2021-01-07 13:11 | P.PN ---
Subjective This is a pleasant 75-year-old female past medical history significant for hypertension, dyslipidemia and diabetes mellitus. She presented to the hospital with acute anterior myocardial infarction and underwent stenting of her subtotally occluded LAD. She also had significant disease in the RCA. Echocardiogram revealed impaired LV systolic function with ejection fraction 30- 35% with anterior apical and anteroseptal hypokinesia. She is seen and examined resting comfortably sitting up in bed in no acute distress. She denies symptoms of chest discomfort or shortness of breath. Lipitor is currently on hold secondary to abnormal liver enzymes. Ultrasound of the liver performed yesterday revealed stable cholelithiasis. Patient went into atrial fibrillation with HR 160s yesterday 01/06, patient was started on amiodarone drip and converted back to sinus mechanism drip was discontinued. She is currently maintaining sinus mechanism HR 70s. Blood pressure 114/66, heart rate 81, afebrile, maintaining saturations on room air. Laboratory data reviewed CBC 15.6, hemoglobin 12, platelets 384, sodium 132, potassium 4.3, BUN 23, serum creatinine 0.5, AST 74, ALT 50. Currently maintained on aspirin 81 mg daily, metoprolol 25 mg twice a day, Aldactone 25 mg daily and Brilinta 90 mg twice a day, lisinopril 5mg daily. GENERAL: Well-appearing, well-nourished and in no acute distress. NECK: Supple without JVD or thyromegaly. LUNGS: Breath sounds clear to auscultation bilaterally. Respiration equal and unlabored. No wheezes, rales or rhonchi. HEART: Regular rate and rhythm. S1 S2 heard. Systolic murmur noted EXTREMITIES: Normal range of motion, no edema. No clubbing or cyanosis. Peripheral pulses intact. Right radial cath site clean dry intact 2+ pulses ASSESSMENT Acute anterior wall myocardial infarction status post PCI to the LAD with obstructive disease of the RCA Ischemic cardiomyopathy Leukocytosis Chronic cholelithiasis Transaminitis Diabetes mellitus Dyslipidemia New onset Paroxysmal atrial fibrillation, brief episode on 01/06 PLAN Will start amiodarone 200mg BID We will hold off on anticoagulation at this time. Continue aspirin/plavix, metoprolol, aldactone, Brilinta and Lisinopril Continue to increase activity and ambulation as tolerated. Overall clinically stable from a cardiac perspective. She will require PCI of RCA, this will be set up as an outpatient. Once cleared by all other consultants the patient can be discharged home. Patient to follow up with Dr. Mariano in the office within 1 week. Nurse Practitioner note has been reviewed, I agree with a documented findings and plan of care. Patient was seen and examined. Objective - Vital Signs Vital signs: Vital Signs Temp 98.0 F 01/07/21 08:00 Pulse 84 01/07/21 08:00 Resp 16 01/07/21 08:00 BP 101/60 01/07/21 08:00 Pulse Ox 98 01/07/21 08:00 Intake & Output 01/06/21 01/07/21 01/07/21 18:59 06:59 18:59 Intake Total 0 233.06 240 Output Total 0 Balance 0 233.06 240 Weight 73.5 kg Intake: Intake, IV Titration 233.06 Amount Amiodarone 450 mg In 233.06 Dextrose 5% in Water 250 ml @ 0.5 MG/MIN 16.667 mls/hr IV .Q15H [facility] Rx#: [id number] Oral 0 240 Output: Urine 0 Other: Voiding Method Toilet Toilet Toilet # Voids 1 2 - Labs CBC & Chem 7: 01/07/21 08:53 01/07/21 08:53 Labs: Abnormal Lab Results - Last 24 Hours (Table) 01/06/21 01/06/21 01/06/21 Range/Units 11:24 16:34 19:55 POC Glucose (mg/dL) 194 H 185 H 148 H (75-99) mg/dL 01/07/21 Range/Units 05:56 POC Glucose (mg/dL) 115 H (75-99) mg/dL
--- NOTE | 2021-01-07 16:28 | P.PN ---
Subjective Progress Note Date: 01/07/21 Principal diagnosis: Elevated LFTs Patient was seen and examined sitting up at the bedside. She denies any abdominal pain, nausea, or vomiting. Initially gastroenterology was consulted for acute elevation in patient's LFTs. Patient was admitted with chest pain and STEMI, underwent cardiac catheterization with stenting. Liver enzymes continued to trend down. Objective - Vital Signs Vital signs: Vital Signs Temp 98.2 F 01/07/21 11:31 Pulse 81 01/07/21 11:31 Resp 16 01/07/21 11:31 BP 114/66 01/07/21 11:31 Pulse Ox 98 01/07/21 11:31 Intake & Output 01/06/21 01/07/21 01/07/21 18:59 06:59 18:59 Intake Total 0 233.06 240 Output Total 0 Balance 0 233.06 240 Weight 73.5 kg Intake: Intake, IV Titration 233.06 Amount Amiodarone 450 mg In 233.06 Dextrose 5% in Water 250 ml @ 0.5 MG/MIN 16.667 mls/hr IV .Q15H [facility] Rx#: [id number] Oral 0 240 Output: Urine 0 Other: Voiding Method Toilet Toilet Toilet # Voids 1 2 - Exam General appearance: The patient is alert, oriented, appears in no acute distress. HET: Head is normocephalic and atraumatic. Conjunctiva pink. Sclera anicteric. Neck: Supple without lymphadenopathy. Abdomen: Soft, nontender, nondistended with bowel sounds. No guarding or rigidity. Extremities: Normal skin color and turgor. No pedal edema Skin: No rashes, no jaundice Neurological: No focal deficits. Alert and oriented 3. - Labs CBC & Chem 7: 01/07/21 08:53 01/07/21 08:53 Labs: Abnormal Lab Results - Last 24 Hours (Table) 01/06/21 01/06/21 01/07/21 Range/Units 16:34 19:55 05:56 WBC (3.8-10.6) k/uL Neutrophils # (1.3-7.7) k/uL Sodium (137-145) mmol/L BUN (7-17) mg/dL Glucose (74-99) mg/dL POC Glucose (mg/dL) 185 H 148 H 115 H (75-99) mg/dL AST (14-36) U/L ALT (4-34) U/L Total Protein (6.3-8.2) g/dL 01/07/21 01/07/21 01/07/21 Range/Units 08:53 08:53 11:24 WBC 15.6 H (3.8-10.6) k/uL Neutrophils # 11.9 H (1.3-7.7) k/uL Sodium 132 L (137-145) mmol/L BUN 23 H (7-17) mg/dL Glucose 134 H (74-99) mg/dL POC Glucose (mg/dL) 128 H (75-99) mg/dL AST 74 H (14-36) U/L ALT 50 H (4-34) U/L Total Protein 5.9 L (6.3-8.2) g/dL Assessment and Plan (1) Elevated LFTs Narrative/Plan: 75-year-old female who presented to the emergency department with chest pain and shortness of breath diagnosed with acute STEMI who underwent a cardiac catheterization with stent placement. She was noted to have elevation in her liver function test, she underwent a liver ultrasound showing stable biases cholelithiasis. Patient states she's been following with general surgery outpatient and is supposed to have her gallbladder removed for gallstones. She denies any underlying liver disease, denies any history of elevation in her li narciso enzymes. She was noted to have normal LFTs in October of this year. Likely we are dealing with hypoperfusion due to STEMI and hypotension. LFTs are already improving. Hepatitis panel ordered. Current Visit: Yes Status: Acute Code(s): R79.89 - OTHER SPECIFIED ABNORMAL FINDINGS OF BLOOD CHEMISTRY SNOMED Code(s): 242604009 (2) ST elevation myocardial infarction (STEMI) Current Visit: Yes Status: Acute Code(s): I21.3 - ST ELEVATION (STEMI) MYOCARDIAL INFARCTION OF [facility] SITE SNOMED Code(s): 62838320 Plan: 1. Repeat LFTs daily 2. Hepatitis panel ordered and negative 3. Continue current medical management 4. Avoid hepatotoxic medications Thank you for this consultation, gastroenterology will sign off at this time as liver enzymes continued to improve. Dr. Rl Vega I agree with the dictator's note, documented as a scribe by Norma Paredes.
[2021-01-07 16:39] LABS: Glucose,Whole Blood 167 mg/dL (75-99)
--- NOTE | 2021-01-07 17:24 | P.PN ---
Subjective Progress Note Date: 01/07/21 Ava Pratt is a 75 year old female who presented to [facility] emergency room with a chief complaint of chest pain, patient describes a midsternal pain that started at 557 this morning and was fairly severe up to 9 out of 10 in severity, she called EMS, she was given sublingual nitroglycerin, EKG was done via EMS and was transmitted to emergency room revealed ST elevation in anterolateral leads, a STEMI alert was called prior to patient arrival, she was taken immediately to the laborer cutting tool, she was found to have a critical stenosis in the proximal LAD, she underwent angioplasty and stent placement, and was subsequently admitted to intensive care unit. He was evaluated in the emergency room vital examination on presentation revealed a temperature of 97.4 pulse 93 respiration 16 blood pressure 111/67 pulse ox 99% on 2 L nasal cannula Laboratory data reveals a white blood count of 13.4 hemoglobin 10.9 platelet count 270 sodium 139 potassium 3.8 BUN 12 creatinine 0.52 glucose 242 AST 98 ALT 48 troponin 0.098 Testing in the emergency room, patient had a chest x-ray that revealed a right infrahilar opacity that could be on the basis of atelectasis or pneumonia, patient also had a 5 mm nodule in the right lower third of the hemithorax. Past medical history is significant for wdb-whlarsh-kzgpfbxik diabetes mellitus, hypertension, hyperlipidemia, vitamin D deficiency, and history of fibromyalgia. Patient also recently had a gallbladder ultrasound on 12/18/2020 that revealed multiple gallstones and sludge within the gallbladder and gallstones within the neck of the gallbladder. On 01/05/2021. Patient's alert and oriented 3. Patient reports just generalized pain related to her fibromyalgia and difficulty sleeping and hospital. Patient denies any chest pain or shortness of breath. Patient denies any nausea vomiting or diarrhea. Patient denies any urinary burning or frequency. Heart rate 101. Respiratory rate 16. Blood pressure 132/76. Oxygenation status 95% on 2 L On 01/06/2021 Patient was seen and examined on the medical floor, he is alert and oriented x 3 in no distress, he denies any complaints there is no fever or chills no headache or dizziness no chest pain no shortness of breath no palpitation no cough no nausea or vomiting no abdominal pain no diarrhea no blood in the stools no burning with urination no frequency or urgency and no hematuria, there is no weakness or numbness in any of the extremities no change in vision speech or gait. Liver enzymes improving AST 157 ALT 61 On 01/07/2021 Patient was seen and examined on the medical floor, he is alert and oriented x 3 in no distress, he denies any complaints there is no fever or chills no headache or dizziness no chest pain no shortness of breath no palpitation no cough no nausea or vomiting no abdominal pain no diarrhea no blood in the stools no burning with urination no frequency or urgency and no hematuria, there is no weakness or numbness in any of the extremities no change in vision speech or gait. At this time will add physical therapy and occupational therapy, medication reviewed continue with current regimen. Objective - Vital Signs Vital signs: Vital Signs Temp 98.2 F 01/07/21 11:31 Pulse 81 01/07/21 11:31 Resp 16 01/07/21 11:31 BP 114/66 01/07/21 11:31 Pulse Ox 98 01/07/21 11:31 Intake & Output 01/06/21 01/07/21 01/07/21 18:59 06:59 18:59 Intake Total 0 233.06 480 Output Total 0 Balance 0 233.06 480 Weight 73.5 kg Intake: Intake, IV Titration 233.06 Amount Amiodarone 450 mg In 233.06 Dextrose 5% in Water 250 ml @ 0.5 MG/MIN 16.667 mls/hr IV .Q15H FIDEL Rx#: [id number] Oral 0 480 Output: Urine 0 Other: Voiding Method Toilet Toilet Toilet # Voids 1 2 - Exam In general patient is alert and oriented x 3 in no distress HEENT head normocephalic and atraumatic Neck is supple no JVD no goiter no lymphadenopathy no carotid bruit Chest examination is clear to auscultation no crackles no wheezing Cardiac exam reveals regular heart sounds S1 and S2 no gallops no murmurs Abdomen is soft nontender no organomegaly with normal bowel sounds Extremity exam reveals no edema no cyanosis or clubbing Neurological examination reveals no gross focal deficits - Labs CBC & Chem 7: 01/07/21 08:53 01/07/21 08:53 Labs: Abnormal Lab Results - Last 24 Hours (Table) 01/06/21 01/06/21 01/07/21 Range/Units 16:34 19:55 05:56 WBC (3.8-10.6) k/uL Neutrophils # (1.3-7.7) k/uL Sodium (137-145) mmol/L BUN (7-17) mg/dL Glucose (74-99) mg/dL POC Glucose (mg/dL) 185 H 148 H 115 H (75-99) mg/dL AST (14-36) U/L ALT (4-34) U/L Total Protein (6.3-8.2) g/dL 01/07/21 01/07/21 01/07/21 Range/Units 08:53 08:53 11:24 WBC 15.6 H (3.8-10.6) k/uL Neutrophils # 11.9 H (1.3-7.7) k/uL Sodium 132 L (137-145) mmol/L BUN 23 H (7-17) mg/dL Glucose 134 H (74-99) mg/dL POC Glucose (mg/dL) 128 H (75-99) mg/dL AST 74 H (14-36) U/L ALT 50 H (4-34) U/L Total Protein 5.9 L (6.3-8.2) g/dL Assessment and Plan Plan: 1. Acute ST elevation myocardial infarction 2. Critical stenosis in the proximal LAD status post angioplasty and stent placement on presentation 3. Leukocytosis, could be related to pulmonic infiltrate versus gallbladder disease, will start IV Rocephin and consult infectious disease 4. Elevated liver enzymes 5. Abnormal gallbladder ultrasound done on 12/18/2020 revealing multiple ga llstones consultation for Dr. Bethany prabhakar 6. Underlying history of hypertension 7. Underlying history of hyperlipidemia 8. Underlying history of statin intolerance 9. Underlying history of blu-epifigb-icbobvgad diabetes mellitus 10. Underlying history of fibromyalgia with chronic pain 11. Evidence of 5 mm right lower lobe pulmonary nodule will follow closely in the subacute period. At this time patient is admitted to intensive care unit She is maintained on aspirin, Brillinta, metoprolol, she was also started on a low-dose of Lipitor despite history of intolerance to statins, patient will be monitored closely in ICU, she is also receiving Zetia Metformin is on hold at this time A1c 6.0 Will cover with insulin sliding scale Will follow closely during this admission
[2021-01-07 20:32] LABS: Glucose,Whole Blood 119 mg/dL (75-99)
[2021-01-07] MEDS ORDERED: AMIODARONE 200 MG TAB PO SCH (21:00)
[2021-01-07] MEDS: ALPRAZolam 1 MG TAB PO SCH (21:19)
[2021-01-07] MEDS: AMITRIPTYLINE HCL 10 MG TAB PO SCH (21:43)
[2021-01-07] MEDS ORDERED: DEXTROSE 5% IN WATER 100 ML with AMIODARONE 150 MG IV ONE (21:44)
[2021-01-07] MEDS ORDERED: AMIODARONE 360 MG in DEXTROSE 5% IN WATER 200 ML IV ONE ×2 (21:45)
[2021-01-07] MEDS ORDERED: HEPARIN SOD,PORK IN 0.45% NACL 25,000 UNIT in 0.45% NACL 1 250ML.BAG IV SCH (22:15)
--- NOTE | 2021-01-07 22:58 | PN ---
PROGRESS NOTE DATE OF SERVICE: 01/07/2021 REASON FOR FOLLOWUP: Leukocytosis, possible source. INTERVAL HISTORY: Patient is afebrile. The patient is breathing comfortably. The patient denies having any chest pain. No shortness of breath or cough. No nausea, vomiting, abdominal pain or diarrhea. PHYSICAL EXAMINATION: Blood pressure 116/67, pulse of 92. Temperature 97.7. She is 98% on room air. General description: The patient is an elderly female lying in bed in no distress. Respiratory system: Unlabored breathing, decreased breath sounds in the bases. No wheeze. Heart S1, S2. Regular rate and rhythm. Abdomen: Soft. No tenderness. Extremities: No edema of the feet. LABS: Hemoglobin is 12.1, white count 15.7, BUN of 23, creatinine 0.56. Liver enzymes remain to be mildly elevated. DIAGNOSTIC IMPRESSION AND PLAN: Patient with elevated white count. Concern for possible disease in this patient with recent myocardial infarction status post PTCA and stent placement with worsening of the white count. Antibiotic will be adjusted to Zosyn and see response. Continue supportive care. MMODL / IJN: [id number] /
[2021-01-08] MEDS ORDERED: AMIODARONE 450 MG in DEXTROSE 5% IN WATER 250 ML IV SCH ×2 (03:45)
[2021-01-08 06:18] LABS: Glucose,Whole Blood 156 mg/dL (75-99)
[2021-01-08] MEDS: PIPERACILLIN-TAZOBACTAM 3.375 GM in SODIUM CHLORIDE 0.9% 100 ML IVPB SCH ×3 (06:36→17:21)
[2021-01-08] MEDS: INSULIN ASPART (NovoLOG) 100 UNIT/ML VIAL SQ SCH ×4 (06:45→21:31)
[2021-01-08] MEDS ORDERED: HEPARIN SODIUM 1,000 UN/ML (10ML VL) IV PRN (08:40)
[2021-01-08] MEDS: HYDROcodone/APAP 10-325MG 1 EACH TAB PO PRN ×4 (09:06→23:53)
[2021-01-08] MEDS: ASPIRIN 81 MG PO SCH (09:08)
[2021-01-08 09:09] LABS: ALT 36 U/L (4-34); AST 53 U/L (14-36); African American GFR (CKD) >90 (>60 ml/min/1.73 sqM); Albumin 3.5 g/dL (3.5-5.0); Alkaline Phosphatase 77 U/L (38-126); Anion Gap 9 mmol/L; Blood Urea Nitrogen 17 mg/dL (7-17); Carbon Dioxide 22 mmol/L (22-30); Chloride 102 mmol/L (98-107); Glucose 148 mg/dL (74-99); Non-African American GFR(CKD) >90 (>60 ml/min/1.73 sqM); Sodium 133 mmol/L (137-145); Total Bilirubin 1.2 mg/dL (0.2-1.3); Total Protein 6.1 g/dL (6.3-8.2)
[2021-01-08] MEDS: EZETIMIBE 10 MG TAB PO SCH (09:09)
[2021-01-08] MEDS: SPIRONOLACTONE 25 MG TAB PO SCH (09:09)
[2021-01-08] MEDS: lisinopriL 5 MG TAB PO SCH (09:09)
[2021-01-08] MEDS: METOPROLOL TARTRATE 25 MG TAB PO SCH ×2 (09:09→19:59)
[2021-01-08] MEDS: TICAGRELOR 90 MG TAB PO SCH ×2 (09:09→19:59)
[2021-01-08 09:23] LABS: Basophils # (A) 0.1 k/uL (0-0.2); Basophils % (A) 0 %; Eosinophils # (A) 0.1 k/uL (0-0.7); Eosinophils % (A) 1 %; HCT 42.1 % (34.0-46.0); HGB 13.1 gm/dL (11.4-16.0); Lymphocytes # (A) 2.8 k/uL (1.0-4.8); Lymphocytes % (A) 19 %; MCH 28.8 pg (25.0-35.0); MCV 93.1 fL (80.0-100.0); Mean Platelet Volume 8.4; Monocytes # (A) 0.7 k/uL (0-1.0); Monocytes % (A) 5 %; Neutrophils % (A) 74 %; Platelet Count 375 k/uL (150-450); RBC 4.53 m/uL (3.80-5.40); RDW 13.8 % (11.5-15.5); WBC 14.9 k/uL (3.8-10.6)
[2021-01-08] MEDS: HYDROmorphone 0.5 MG/0.5 ML SYRINGE IVP PRN ×4 (11:19→21:58)
[2021-01-08 11:29] LABS: Glucose,Whole Blood 171 mg/dL (75-99)
--- NOTE | 2021-01-08 11:40 | P.PN ---
Subjective Progress Note Date: 01/08/21 Ava Pratt is a 75 year old female who presented to [facility] emergency room with a chief complaint of chest pain, patient describes a midsternal pain that started at 557 this morning and was fairly severe up to 9 out of 10 in severity, she called EMS, she was given sublingual nitroglycerin, EKG was done via EMS and was transmitted to emergency room revealed ST elevation in anterolateral leads, a STEMI alert was called prior to patient arrival, she was taken immediately to the labor delivery specialist, she was found to have a critical stenosis in the proximal LAD, she underwent angioplasty and stent placement, and was subsequently admitted to intensive care unit. He was evaluated in the emergency room vital examination on presentation revealed a temperature of 97.4 pulse 93 respiration 16 blood pressure 111/67 pulse ox 99% on 2 L nasal cannula Laboratory data reveals a white blood count of 13.4 hemoglobin 10.9 platelet count 270 sodium 139 potassium 3.8 BUN 12 creatinine 0.52 glucose 242 AST 98 ALT 48 troponin 0.098 Testing in the emergency room, patient had a chest x-ray that revealed a right infrahilar opacity that could be on the basis of atelectasis or pneumonia, patient also had a 5 mm nodule in the right lower third of the hemithorax. Past medical history is significant for trv-oqktkuy-bnnvncumn diabetes mellitus, hypertension, hyperlipidemia, vitamin D deficiency, and history of fibromyalgia. Patient also recently had a gallbladder ultrasound on 12/18/2020 that revealed multiple gallstones and sludge within the gallbladder and gallstones within the neck of the gallbladder. On 01/05/2021. Patient's alert and oriented 3. Patient reports just generalized pain related to her fibromyalgia and difficulty sleeping and hospital. Patient denies any chest pain or shortness of breath. Patient denies any nausea vomiting or diarrhea. Patient denies any urinary burning or frequency. Heart rate 101. Respiratory rate 16. Blood pressure 132/76. Oxygenation status 95% on 2 L On 01/06/2021 Patient was seen and examined on the medical floor, he is alert and oriented x 3 in no distress, he denies any complaints there is no fever or chills no headache or dizziness no chest pain no shortness of breath no palpitation no cough no nausea or vomiting no abdominal pain no diarrhea no blood in the stools no burning with urination no frequency or urgency and no hematuria, there is no weakness or numbness in any of the extremities no change in vision speech or gait. Liver enzymes improving AST 157 ALT 61 On 01/07/2021 Patient was seen and examined on the medical floor, he is alert and oriented x 3 in no distress, he denies any complaints there is no fever or chills no headache or dizziness no chest pain no shortness of breath no palpitation no cough no nausea or vomiting no abdominal pain no diarrhea no blood in the stools no burning with urination no frequency or urgency and no hematuria, there is no weakness or numbness in any of the extremities no change in vision speech or gait. At this time will add physical therapy and occupational therapy, medication reviewed continue with current regimen. On 01/08/2021 patient alert and oriented 3. Patient remains on IV heparin and IV amiodarone. Patient remains on IV Zosyn. Infectious disease, GI services, surgical services cardiology services are following. At this time patient denies any chest pain or shortness breath. Patient denies nausea vomiting or diarrhea. Patient denies any urinary burning or frequency Objective - Vital Signs Vital signs: Vital Signs Temp 97.6 F 01/08/21 11:18 Pulse 87 01/08/21 11:18 Resp 18 01/08/21 11:18 BP 105/58 01/08/21 11:18 Pulse Ox 95 01/08/21 11:18 Intake & Output 01/07/21 01/08/21 01/08/21 18:59 06:59 18:59 Intake Total 750 345.28 96.579 Balance 750 345.28 96.579 Weight 69.2 kg Intake: IV 10 10 Invasive Line 4 10 10 Intake, IV Titration 335.28 96.579 Amount Amiodarone 360 mg In 200 Dextrose 5% in Water 200 ml @ 1 MG/MIN 33.333 mls/ hr IV .Q6H ONE Rx#: [id number] Dextrose 5% in Water 100 100 ml @ 618 mls/hr IV .Q10M ONE with Amiodarone 150 mg Rx#:[id number] Heparin Sod,Pork in 0.45% 35.28 96.579 NaCl 25,000 unit In 0.45 % NaCl 1 250ml.bag @ 12 UNITS/KG/HR 8.82 mls/hr IV .Q24H FIDEL Rx#: [id number] Oral 740 Other: Voiding Method Toilet Toilet Toilet # Voids 1 2 1 - Exam In general patient is alert and oriented x 3 in no distress HEENT head normocephalic and atraumatic Neck is supple no JVD no goiter no lymphadenopathy no carotid bruit Chest examination is clear to auscultation no crackles no wheezing Cardiac exam reveals regular heart sounds S1 and S2 no gallops no murmurs Abdomen is soft nontender no organomegaly with normal bowel sounds Extremity exam reveals no edema no cyanosis or clubbing Neurological examination reveals no gross focal deficits - Labs CBC & Chem 7: 01/08/21 08:00 01/08/21 08:00 Labs: Abnormal Lab Results - Last 24 Hours (Table) 01/07/21 01/07/21 01/08/21 Range/Units 16:38 20:31 06:17 WBC (3.8-10.6) k/uL Neutrophils # (1.3-7.7) k/uL Sodium (137-145) mmol/L Creatinine (0.52-1.04) mg/dL Glucose (74-99) mg/dL POC Glucose (mg/dL) 167 H 119 H 156 H (75-99) mg/dL AST (14-36) U/L ALT (4-34) U/L Total Protein (6.3-8.2) g/dL 01/08/21 01/08/21 01/08/21 Range/Units 08:00 08:00 11:27 WBC 14.9 H (3.8-10.6) k/uL Neutrophils # 11.0 H (1.3-7.7) k/uL Sodium 133 L (137-145) mmol/L Creatinine 0.46 L (0.52-1.04) mg/dL Glucose 148 H (74-99) mg/dL POC Glucose (mg/dL) 171 H (75-99) mg/dL AST 53 H (14-36) U/L ALT 36 H (4-34) U/L Total Protein 6.1 L (6.3-8.2) g/dL Assessment and Plan Plan: 1. Acute ST elevation myocardial infarction 2. Critical stenosis in the proximal LAD status post angioplasty and stent placement on presentation. Patient will also require PCI of the RCA this will be arranged outpatient per cardiology 3. Leukocytosis, could be related to pulmonic infiltrate versus gallbladder disease, antibiotics adjusted to IV Zosyn 4. Elevated liver enzymes GI services following. Lipitor DC'd. These numbers are trending down 5. Abnormal gallbladder ultrasound done on 12/18/2020 revealing multiple gallstones consultation for Dr. Sims initiated 6. Underlying history of hypertension 7. Underlying history of hyperlipidemia 8. Underlying history of statin intolerance 9. Underlying history of kua-abrlqvt-puresxiio diabetes mellitus 10. Underlying history of fibromyalgia with chronic pain 11. Evidence of 5 mm right lower lobe pulmonary nodule will follow closely in the subacute period. 12. new onset paroxysmal atrial fibrillation. Patient currently on IV amiodarone and IV heparin Patient currently maintained on IV amiodarone and IV hepari Maintained on IV Zosynn She is maintained on aspirin, Brillinta, metoprolol Metformin is on hold at this time A1c 6.0 Will cover with insulin sliding scale Will follow closely during this admission
--- NOTE | 2021-01-08 12:55 | P.PN ---
Subjective This is a pleasant 75-year-old female past medical history significant for hypertension, dyslipidemia and diabetes mellitus. She presented to the hospital with acute anterior myocardial infarction and underwent stenting of her subtotally occluded LAD. She also had significant disease in the RCA. Echocardiogram revealed impaired LV systolic function with ejection fraction 30- 35% with anterior apical and anteroseptal hypokinesia. She is seen and examined resting comfortably sitting up in bed in no acute distress. She denies symptoms of chest discomfort or shortness of breath. Lipitor is currently on hold secondary to abnormal liver enzymes. Patient went into atrial fibrillation with HR 160s 01/06, patient was started on amiodarone drip and converted back to sinus mechanism drip was discontinued. Overnight she went into atrial fibrillation with rapid ventricular response again around 11pm HR up to 160s, patient spontaneously converted. Started on IV heparin drip. She is currently maintaining sinus mechanism HR 70-90s. Blood pressure 114/56, heart rate 88, afebrile, maintaining saturations on room air. Labs not resulted today. Currently maintained on aspirin 81 mg daily, metoprolol 25 mg twice a day, Aldactone 25 mg daily and Brilinta 90 mg twice a day, lisinopril 5mg daily, amiodarone 200mg BID, IV heparin drip. GENERAL: Well-appearing, well-nourished and in no acute distress. NECK: Supple without JVD or thyromegaly. LUNGS: Breath sounds clear to auscultation bilaterally. Respiration equal and unlabored. No wheezes, rales or rhonchi. HEART: Regular rate and rhythm. S1 S2 heard. Systolic murmur noted EXTREMITIES: Normal range of motion, no edema. No clubbing or cyanosis. Peripheral pulses intact. Right radial cath site clean dry intact 2+ pulses ASSESSMENT Acute anterior wall myocardial infarction status post PCI to the LAD with obstructive disease of the RCA Ischemic cardiomyopathy Leukocytosis Chronic cholelithiasis Transaminitis Diabetes mellitus Dyslipidemia New onset Paroxysmal atrial fibrillation [id number] score 7 PLAN Will start amiodarone 200mg BID and discontinue amiodarone drip Discontinue heparin drip Start Eliquis 5mg BID, Hold aspirin. Consult case management in terms of cost, patient's cost is $95/month. She will get a free month. Case management to give patient the number to call in order to help with finances of Eliquis. She states she does not want to take Coumadin at this time due to the frequent blood draws and would prefer Eliquis. Continue plavix, metoprolol, aldactone, Brilinta and Lisinopril Continue to increase activity and ambulation as tolerated. Overall clinically stable from a cardiac perspective. She will most likely require PCI of RCA, this will be set up as an outpatient. Further recommendations based on clinical course Patient to follow up with Dr. Mariano in the office within 1 week on discharge. Nurse Practitioner note has been reviewed, I agree with a documented findings and plan of care. Patient was seen and examined. Objective - Vital Signs Vital signs: Vital Signs Temp 97.8 F 01/08/21 04:00 Pulse 83 01/08/21 04:00 Resp 18 01/08/21 04:00 BP 107/69 01/08/21 04:00 Pulse Ox 96 01/08/21 04:00 Intake & Output 01/07/21 01/08/21 01/08/21 18:59 06:59 18:59 Intake Total 750 345.28 Balance 750 345.28 Weight 69.2 kg Intake: IV 10 10 Invasive Line 4 10 10 Intake, IV Titration 335.28 Amount Amiodarone 360 mg In 200 Dextrose 5% in Water 200 ml @ 1 MG/MIN 33.333 mls/ hr IV .Q6H ONE Rx#: [id number] Dextrose 5% in Water 100 100 ml @ 618 mls/hr IV .Q10M ONE with Amiodarone 150 mg Rx#:[id number] Heparin Sod,Pork in 0.45% 35.28 NaCl 25,000 unit In 0.45 % NaCl 1 250ml.bag @ 12 UNITS/KG/HR 8.82 mls/hr IV .Q24H FIDEL Rx#: [id number] Oral 740 Other: Voiding Method Toilet Toilet # Voids 1 2 - Labs CBC & Chem 7: 01/08/21 08:00 01/08/21 08:00 Labs: Abnormal Lab Results - Last 24 Hours (Table) 01/07/21 01/07/21 01/07/21 Range/Units 08:53 08:53 11:24 WBC 15.6 H (3.8-10.6) k/uL Neutrophils # 11.9 H (1.3-7.7) k/uL Sodium 132 L (137-145) mmol/L BUN 23 H (7-17) mg/dL Glucose 134 H (74-99) mg/dL POC Glucose (mg/dL) 128 H (75-99) mg/dL AST 74 H (14-36) U/L ALT 50 H (4-34) U/L Total Protein 5.9 L (6.3-8.2) g/dL 01/07/21 01/07/21 01/08/21 Range/Units 16:38 20:31 06:17 WBC (3.8-10.6) k/uL Neutrophils # (1.3-7.7) k/uL Sodium (137-145) mmol/L BUN (7-17) mg/dL Glucose (74-99) mg/dL POC Glucose (mg/dL) 167 H 119 H 156 H (75-99) mg/dL AST (14-36) U/L ALT (4-34) U/L Total Protein (6.3-8.2) g/dL
[2021-01-08 13:09] VITALS: BMI 23.8
[2021-01-08] MEDS: APIXABAN 5 MG TAB PO SCH ×2 (15:00→23:53)
[2021-01-08] MEDS: AMIODARONE 200 MG TAB PO SCH ×2 (15:00→19:59)
[2021-01-08 16:34] LABS: Glucose,Whole Blood 245 mg/dL (75-99)
--- NOTE | 2021-01-08 18:21 | PN ---
PROGRESS NOTE DATE OF SERVICE: 01/08/2021 REASON FOR FOLLOWUP: Leukocytosis, possible abdominal infectious disease. INTERVAL HISTORY: Patient is afebrile. The patient is feeling better, breathing comfortably. Denies having any chest pain. No shortness of breath or cough. No abdominal pain or diarrhea. PHYSICAL EXAMINATION: Blood pressure 114/54, pulse of 90, temperature 98.2. She is 95% on room air. General description is an elderly female lying in bed in no distress. Respiratory system: Unlabored breathing, clear to auscultation anteriorly. Heart S1, S2. Regular rate and rhythm. Abdomen: Soft, no tenderness. LABS: Hemoglobin is 13.8, white count 14.9, BUN of 17, creatinine 0.46. DIAGNOSTIC IMPRESSION AND PLAN: Patient with elevated white count. Concern for possible gallbladder disease. The patient's white count is trending down. Antibiotic adjusted to Zosyn. To continue from yesterday. Repeat inflammatory markers tomorrow and monitor clinical course closely. MMODL / IJN: [id number] /
[2021-01-08 19:55] LABS: Glucose,Whole Blood 143 mg/dL (75-99)
[2021-01-08] MEDS: ALPRAZolam 1 MG TAB PO SCH (19:59)
[2021-01-08] MEDS: AMITRIPTYLINE HCL 10 MG TAB PO SCH (20:34)
[2021-01-09] MEDS: PIPERACILLIN-TAZOBACTAM 3.375 GM in SODIUM CHLORIDE 0.9% 100 ML IVPB SCH ×3 (00:17→15:53)
[2021-01-09] MEDS: HYDROcodone/APAP 10-325MG 1 EACH TAB PO PRN ×4 (05:05→20:16)
[2021-01-09 06:20] LABS: Glucose,Whole Blood 128 mg/dL (75-99)
[2021-01-09] MEDS: INSULIN ASPART (NovoLOG) 100 UNIT/ML VIAL SQ SCH ×4 (06:26→21:08)
[2021-01-09] MEDS: METOPROLOL TARTRATE 25 MG TAB PO SCH (07:01)
[2021-01-09] MEDS: HYDROmorphone 0.5 MG/0.5 ML SYRINGE IVP PRN ×4 (07:37→21:33)
[2021-01-09] MEDS: APIXABAN 5 MG TAB PO SCH ×2 (07:38→20:16)
[2021-01-09] MEDS: SPIRONOLACTONE 25 MG TAB PO SCH (07:38)
[2021-01-09] MEDS: lisinopriL 5 MG TAB PO SCH (07:38)
[2021-01-09] MEDS: TICAGRELOR 90 MG TAB PO SCH ×2 (07:38→20:16)
[2021-01-09] MEDS: AMIODARONE 200 MG TAB PO SCH ×2 (07:39→20:16)
[2021-01-09 07:46] LABS: Basophils % (A) 0 %; Eosinophils # (A) 0.2 k/uL (0-0.7); Eosinophils % (A) 2 %; HCT 38.2 % (34.0-46.0); HGB 12.2 gm/dL (11.4-16.0); Lymphocytes # (A) 1.7 k/uL (1.0-4.8); Lymphocytes % (A) 16 %; MCH 28.8 pg (25.0-35.0); MCHC 31.9 g/dL (31.0-37.0); MCV 90.4 fL (80.0-100.0); Mean Platelet Volume 8.3; Monocytes # (A) 0.4 k/uL (0-1.0); Monocytes % (A) 4 %; Neutrophils # (A) 7.9 k/uL (1.3-7.7); Neutrophils % (A) 76 %; Platelet Count 432 k/uL (150-450); RBC 4.23 m/uL (3.80-5.40); WBC 10.4 k/uL (3.8-10.6)
[2021-01-09] MEDS: EZETIMIBE 10 MG TAB PO SCH (07:49)
[2021-01-09 07:58] LABS: ALT 26 U/L (4-34); AST 30 U/L (14-36); African American GFR (CKD) >90 (>60 ml/min/1.73 sqM); Albumin 3.2 g/dL (3.5-5.0); Alkaline Phosphatase 72 U/L (38-126); Anion Gap 8 mmol/L; Blood Urea Nitrogen 11 mg/dL (7-17); Calcium 8.8 mg/dL (8.4-10.2); Carbon Dioxide 23 mmol/L (22-30); Chloride 103 mmol/L (98-107); Glucose 148 mg/dL (74-99); Non-African American GFR(CKD) >90 (>60 ml/min/1.73 sqM); Potassium 4.1 mmol/L (3.5-5.1); Sodium 134 mmol/L (137-145); Total Bilirubin 0.8 mg/dL (0.2-1.3); Total Protein 5.6 g/dL (6.3-8.2)
[2021-01-09 08:27] LABS: C Reactive Protein 6.9 mg/dL (<1.0)
[2021-01-09] MEDS ORDERED: METOPROLOL TARTRATE 25 MG TAB PO STA (09:19)
--- NOTE | 2021-01-09 09:33 | P.PN ---
Subjective Progress Note Date: 01/09/21 Ava Pratt is a 75 year old female who presented to [facility] emergency room with a chief complaint of chest pain, patient describes a midsternal pain that started at 557 this morning and was fairly severe up to 9 out of 10 in severity, she called EMS, she was given sublingual nitroglycerin, EKG was done via EMS and was transmitted to emergency room revealed ST elevation in anterolateral leads, a STEMI alert was called prior to patient arrival, she was taken immediately to the cardiac cath rn, she was found to have a critical stenosis in the proximal LAD, she underwent angioplasty and stent placement, and was subsequently admitted to intensive care unit. He was evaluated in the emergency room vital examination on presentation revealed a temperature of 97.4 pulse 93 respiration 16 blood pressure 111/67 pulse ox 99% on 2 L nasal cannula Laboratory data reveals a white blood count of 13.4 hemoglobin 10.9 platelet count 270 sodium 139 potassium 3.8 BUN 12 creatinine 0.52 glucose 242 AST 98 ALT 48 troponin 0.098 Testing in the emergency room, patient had a chest x-ray that revealed a right infrahilar opacity that could be on the basis of atelectasis or pneumonia, patient also had a 5 mm nodule in the right lower third of the hemithorax. Past medical history is significant for dmt-hgsbhqy-hzriixzwo diabetes mellitus, hypertension, hyperlipidemia, vitamin D deficiency, and history of fibromyalgia. Patient also recently had a gallbladder ultrasound on 12/18/2020 that revealed multiple gallstones and sludge within the gallbladder and gallstones within the neck of the gallbladder. On 01/05/2021. Patient's alert and oriented 3. Patient reports just generalized pain related to her fibromyalgia and difficulty sleeping and hospital. Patient denies any chest pain or shortness of breath. Patient denies any nausea vomiting or diarrhea. Patient denies any urinary burning or frequency. Heart rate 101. Respiratory rate 16. Blood pressure 132/76. Oxygenation status 95% on 2 L On 01/06/2021 Patient was seen and examined on the medical floor, he is alert and oriented x 3 in no distress, he denies any complaints there is no fever or chills no headache or dizziness no chest pain no shortness of breath no palpitation no cough no nausea or vomiting no abdominal pain no diarrhea no blood in the stools no burning with urination no frequency or urgency and no hematuria, there is no weakness or numbness in any of the extremities no change in vision speech or gait. Liver enzymes improving AST 157 ALT 61 On 01/07/2021 Patient was seen and examined on the medical floor, he is alert and oriented x 3 in no distress, he denies any complaints there is no fever or chills no headache or dizziness no chest pain no shortness of breath no palpitation no cough no nausea or vomiting no abdominal pain no diarrhea no blood in the stools no burning with urination no frequency or urgency and no hematuria, there is no weakness or numbness in any of the extremities no change in vision speech or gait. At this time will add physical therapy and occupational therapy, medication reviewed continue with current regimen. On 01/08/2021 patient alert and oriented 3. Patient remains on IV heparin and IV amiodarone. Patient remains on IV Zosyn. Infectious disease, GI services, surgical services cardiology services are following. At this time patient denies any chest pain or shortness breath. Patient denies nausea vomiting or diarrhea. Patient denies any urinary burning or frequency On 01/09/2021 patient was seen and examined on the telemetry floor she is alert and oriented 3 in no apparent distress, there is no fever or chills no headache or dizziness no chest pain no shortness of breath no cough no nausea or vomiting no abdominal pain no diarrhea no blood in the stools no burning with urination no frequency or urgency and no hematuria, IV heparin and IV amiodarone were discontinued yesterday, currently patient is maintained on oral Eliquis and oral amiodarone, she is still maintained on IV Zosyn, at this time we are awaiting for further recommendation from cardiology and infectious disease, possible discharge to home in the next 1-2 days Objective - Vital Signs Vital signs: Vital Signs Temp 97.8 F 01/09/21 04:00 Pulse 76 01/09/21 04:00 Resp 16 01/09/21 04:00 BP 144/79 01/09/21 04:00 Pulse Ox 97 01/09/21 04:00 Intake & Output 01/08/21 01/08/21 01/09/21 06:59 18:59 06:59 Intake Total 345.28 640.340 Balance 345.28 640.340 Weight 69.2 kg 69.2 kg 69.4 kg Intake: IV 10 Invasive Line 4 10 Intake, IV Titration 335.28 160.340 Amount Amiodarone 360 mg In 200 Dextrose 5% in Water 200 ml @ 1 MG/MIN 33.333 mls/ hr IV .Q6H ONE Rx#: [id number] Dextrose 5% in Water 100 100 ml @ 618 mls/hr IV .Q10M ONE with Amiodarone 150 mg Rx#:[id number] Heparin Sod,Pork in 0.45% 35.28 160.340 NaCl 25,000 unit In 0.45 % NaCl 1 250ml.bag @ 12 UNITS/KG/HR 8.82 mls/hr IV .Q24H FIDEL Rx#: [id number] Oral 480 Other: Voiding Method Toilet Toilet Toilet # Voids 2 2 1 - Exam In general patient is alert and oriented x 3 in no distress HEENT head normocephalic and atraumatic Neck is supple no JVD no goiter no lymphadenopathy no carotid bruit Chest examination is clear to auscultation no crackles no wheezing Cardiac exam reveals regular heart sounds S1 and S2 no gallops no murmurs Abdomen is soft nontender no organomegaly with normal bowel sounds Extremity exam reveals no edema no cyanosis or clubbing Neurological examination reveals no gross focal deficits - Labs CBC & Chem 7: 01/09/21 07:08 01/09/21 07:08 Labs: Abnormal Lab Results - Last 24 Hours (Table) 01/08/21 01/08/21 01/08/21 Range/Units 08:00 08:00 11:27 WBC 14.9 H (3.8-10.6) k/uL Neutrophils # 11.0 H (1.3-7.7) k/uL Sodium 133 L (137-145) mmol/L Creatinine 0.46 L (0.52-1.04) mg/dL Glucose 148 H (74-99) mg/dL POC Glucose (mg/dL) 171 H (75-99) mg/dL AST 53 H (14-36) U/L ALT 36 H (4-34) U/L Total Protein 6.1 L (6.3-8.2) g/dL 01/08/21 01/08/21 01/09/21 Range/Units 16:32 19:53 06:18 WBC (3.8-10.6) k/uL Neutrophils # (1.3-7.7) k/uL Sodium (137-145) mmol/L Creatinine (0.52-1.04) mg/dL Glucose (74-99) mg/dL POC Glucose (mg/dL) 245 H 143 H 128 H (75-99) mg/dL AST (14-36) U/L ALT (4-34) U/L Total Protein (6.3-8.2) g/dL Assessment and Plan Plan: 1. Acute ST elevation myocardial infarction 2. Critical stenosis in the proximal LAD status post angioplasty and stent placement on presentation. Patient will also require PCI of the RCA this will be arranged outpatient per cardiology 3. Leukocytosis, could be related to pulmonic infiltrate versus gallbladder disease, antibiotics adjusted to IV Zosyn 4. Elevated liver enzymes GI services following. Lipitor DC'd. These numbers are trending down 5. Abnormal gallbladder ultrasound done on 12/18/2020 revealing multiple gallstones consultation for Dr. Bethany prabhakar 6. Underlying history of hypertension 7. Underlying history of hyperlipidemia 8. Underlying history of statin intolerance 9. Underlying history of zxm-opybftc-oscnbgzcw diabetes mellitus 10. Underlying history of fibromyalgia with chronic pain 11. Evidence of 5 mm right lower lobe pulmonary nodule will follow closely in the subacute period. 12. new onset paroxysmal atrial fibrillation. Patient currently on IV amiodarone and IV heparin Patient currently maintained on IV amiodarone and IV hepari Maintained on IV Zosynn She is maintained on aspirin, Brillinta, metoprolol Metformin is on hold at this time A1c 6.0 Will cover with insulin sliding scale Will follow closely during this admission
[2021-01-09] MEDS ORDERED: METOPROLOL TARTRATE 5 MG/5 ML VIAL IVP ONE (11:30)
[2021-01-09 11:43] LABS: Glucose,Whole Blood 164 mg/dL (75-99)
--- NOTE | 2021-01-09 14:33 | P.PN ---
Subjective This is a pleasant 75-year-old female past medical history significant for hypertension, dyslipidemia and diabetes mellitus. She presented to the hospital with acute anterior myocardial infarction and underwent stenting of her subtotally occluded LAD. She also had significant disease in the RCA. Echocardiogram revealed impaired LV systolic function with ejection fraction 30- 35% with anterior apical and anteroseptal hypokinesia. She is seen and examined resting comfortably sitting up in bed in no acute distress. She denies symptoms of chest discomfort or shortness of breath. Lipitor is currently on hold secondary to abnormal liver enzymes. On 01/06/2021 patient went into atrial fibrillation with HR 160s 01/06, patient was started on amiodarone drip and converted back to sinus mechanism drip was discontinued. 01/07/2021 she went into atrial fibrillation with rapid ventricular response again around 11pm HR up to 160s, patient spontaneously converted. Started on IV heparin drip. She was transitioned to amiodarone 20 mg twice a day, Eliquis 5 mg twice a day on 01/08/2021. She is maintaining sinus mechanism. 01/09/2021: Patient seen and examined at bedside, no acute distress. She occasionally goes into atrial fibrillation with rapid ventricular response heart rate up to the 130s. She was getting her amiodarone and metoprolol titrate early today and she converted back to sinus mechanism is maintaining sinus mechanism. Blood pressure 135/69, heart rate 76, afebrile, maintaining oxygen saturations on room air. Currently maintained on aspirin 81 mg daily, metoprolol 25 mg twice a day, Aldactone 25 mg daily and Brilinta 90 mg twice a day, lisinopril 5mg daily, amiodarone 200mg BID, Eliquis 5 mg twice a day GENERAL: Well-appearing, well-nourished and in no acute distress. NECK: Supple without JVD or thyromegaly. LUNGS: Breath sounds clear to auscultation bilaterally. Respiration equal and unlabored. No wheezes, rales or rhonchi. HEART: Regular rate and rhythm. S1 S2 heard. Systolic murmur noted EXTREMITIES: Normal range of motion, no edema. No clubbing or cyanosis. Peripheral pulses intact. Right radial cath site clean dry intact 2+ pulses ASSESSMENT Acute anterior wall myocardial infarction status post PCI to the LAD with obstructive disease of the RCA Ischemic cardiomyopathy Leukocytosis Chronic cholelithiasis Transaminitis Diabetes mellitus Dyslipidemia New onset Paroxysmal atrial fibrillation [id number] score 7 PLAN Will increase metoprolol tartrate 50mg BID Continue Eliquis 5mg BID Consult case management in terms of cost, patient's cost is $95/month. She will get a free month. Case management to give patient the number to call in order to help with finances of Eliquis. She states she does not want to take Coumadin at this time due to the frequent blood draws and would prefer Eliquis. Continue plavix, aldactone, Brilinta and Lisinopril Continue to increase activity and ambulation as tolerated. Overall clinically stable from a cardiac perspective. She will most likely require PCI of RCA, this will be set up as an outpatient. If patient remains stable today and not symptomatic ok to discharge from a cardiology perspective and follow up outpatient Patient to follow up with Dr. Mariano in the office within 1 week on discharge. Nurse Practitioner note has been reviewed, I agree with a documented findings and plan of care. Patient was seen and examined. Objective - Vital Signs Vital signs: Vital Signs Temp 97.5 F L 01/09/21 11:22 Pulse 145 H 01/09/21 11:22 Resp 24 01/09/21 11:22 BP 135/69 01/09/21 11:22 Pulse Ox 96 01/09/21 11:22 Intake & Output 01/08/21 01/09/21 01/09/21 18:59 06:59 18:59 Intake Total 640.340 120 Balance 640.340 120 Weight 69.2 kg 69.4 kg Intake: Intake, IV Titration 160.340 Amount Heparin Sod,Pork in 0.45% 160.340 NaCl 25,000 unit In 0.45 % NaCl 1 250ml.bag @ 12 UNITS/KG/HR 8.82 mls/hr IV .Q24H FIDEL Rx#: [id number] Oral 480 120 Other: Voiding Method Toilet Toilet # Voids 2 1 1 - Labs CBC & Chem 7: 01/09/21 07:08 01/09/21 07:08 Labs: Abnormal Lab Results - Last 24 Hours (Table) 01/08/21 01/08/21 01/09/21 Range/Units 16:32 19:53 06:18 Neutrophils # (1.3-7.7) k/uL Sodium (137-145) mmol/L Creatinine (0.52-1.04) mg/dL Glucose (74-99) mg/dL POC Glucose (mg/dL) 245 H 143 H 128 H (75-99) mg/dL C-Reactive Protein (<1.0) mg/dL Total Protein (6.3-8.2) g/dL Albumin (3.5-5.0) g/dL 01/09/21 01/09/21 01/09/21 Range/Units 07:08 07:08 11:41 Neutrophils # 7.9 H (1.3-7.7) k/uL Sodium 134 L (137-145) mmol/L Creatinine 0.48 L (0.52-1.04) mg/dL Glucose 148 H (74-99) mg/dL POC Glucose (mg/dL) 164 H (75-99) mg/dL C-Reactive Protein 6.9 H (<1.0) mg/dL Total Protein 5.6 L (6.3-8.2) g/dL Albumin 3.2 L (3.5-5.0) g/dL
[2021-01-09 16:35] LABS: Glucose,Whole Blood 198 mg/dL (75-99)
--- NOTE | 2021-01-09 18:03 | PN ---
PROGRESS NOTE DATE OF SERVICE: 01/09/2021 REASON FOR FOLLOWUP: Leukocytosis, possible abdominal source. INTERVAL HISTORY: Patient is afebrile. The patient is breathing comfortably. Did have an episode of chest pain when she went into the bathroom this morning. However seemed to have resolved subsequently. No nausea, no vomiting. No abdominal pain or diarrhea. PHYSICAL EXAMINATION: Her blood pressure is 127/68 with a pulse of 83, temperature 98.2. She is 98% on 2 L nasal cannula. General description is an elderly female lying in bed in no distress. Respiratory system: Unlabored breathing, decreased breath sounds at bases. No wheeze. Heart S1, S2. Regular rate and rhythm. Abdomen: Soft, no tenderness. LABS: Hemoglobin is 12.1. Normalized to 10.4, BUN of 11, creatinine 0.48. DIAGNOSTIC IMPRESSION AND PLAN: Patient with leukocytosis, concern for possible abdominal source in this patient who did have gallbladder abnormality. Surgery recommending medical treatment and no surgery. White count responded to Zosyn to continue. Transition to short course of oral Avelox on discharge. Family at the bedside. Questions were answered. MMODL / IJN: [id number] /
[2021-01-09 19:50] LABS: Glucose,Whole Blood 157 mg/dL (75-99)
[2021-01-09] MEDS: ALPRAZolam 1 MG TAB PO SCH (20:16)
[2021-01-09] MEDS: AMITRIPTYLINE HCL 10 MG TAB PO SCH (20:16)
[2021-01-09] MEDS: METOPROLOL TARTRATE 50 MG TAB PO SCH (20:16)
[2021-01-10] MEDS: PIPERACILLIN-TAZOBACTAM 3.375 GM in SODIUM CHLORIDE 0.9% 100 ML IVPB SCH ×2 (00:24→07:52)
[2021-01-10] MEDS: HYDROcodone/APAP 10-325MG 1 EACH TAB PO PRN ×3 (00:34→10:54)
[2021-01-10] MEDS: HYDROmorphone 0.5 MG/0.5 ML SYRINGE IVP PRN ×2 (01:22→07:53)
[2021-01-10 06:13] LABS: Glucose,Whole Blood 117 mg/dL (75-99)
[2021-01-10] MEDS: INSULIN ASPART (NovoLOG) 100 UNIT/ML VIAL SQ SCH (06:14)
[2021-01-10 07:48] LABS: Basophils % (A) 0 %; Eosinophils # (A) 0.3 k/uL (0-0.7); Eosinophils % (A) 2 %; HCT 37.7 % (34.0-46.0); HGB 12.4 gm/dL (11.4-16.0); Lymphocytes # (A) 2.4 k/uL (1.0-4.8); Lymphocytes % (A) 19 %; MCH 30.3 pg (25.0-35.0); MCV 91.6 fL (80.0-100.0); Mean Platelet Volume 8.4; Monocytes # (A) 0.5 k/uL (0-1.0); Monocytes % (A) 4 %; Neutrophils # (A) 9.1 k/uL (1.3-7.7); Neutrophils % (A) 73 %; Platelet Count 443 k/uL (150-450); RBC 4.11 m/uL (3.80-5.40); RDW 14.3 % (11.5-15.5); WBC 12.5 k/uL (3.8-10.6)
[2021-01-10 07:52] VITALS: BP 121/73; PULSE 104; RESP 22; TEMP 98.5
[2021-01-10] MEDS: lisinopriL 5 MG TAB PO SCH (07:52)
[2021-01-10] MEDS: METOPROLOL TARTRATE 50 MG TAB PO SCH (07:52)
[2021-01-10] MEDS: TICAGRELOR 90 MG TAB PO SCH (07:52)
[2021-01-10] MEDS: EZETIMIBE 10 MG TAB PO SCH (07:53)
[2021-01-10] MEDS: SPIRONOLACTONE 25 MG TAB PO SCH (07:53)
[2021-01-10] MEDS: AMIODARONE 200 MG TAB PO SCH (07:53)
[2021-01-10] MEDS: APIXABAN 5 MG TAB PO SCH (07:53)
[2021-01-10 09:50] LABS: ALT 23 U/L (4-34); AST 26 U/L (14-36); African American GFR (CKD) >90 (>60 ml/min/1.73 sqM); Albumin 3.4 g/dL (3.5-5.0); Alkaline Phosphatase 71 U/L (38-126); Anion Gap 9 mmol/L; Blood Urea Nitrogen 10 mg/dL (7-17); Calcium 9.1 mg/dL (8.4-10.2); Carbon Dioxide 26 mmol/L (22-30); Chloride 102 mmol/L (98-107); Glucose 133 mg/dL (74-99); Non-African American GFR(CKD) >90 (>60 ml/min/1.73 sqM); Potassium 4.1 mmol/L (3.5-5.1); Sodium 137 mmol/L (137-145); Total Bilirubin 0.7 mg/dL (0.2-1.3); Total Protein 5.8 g/dL (6.3-8.2)
--- NOTE | 2021-01-10 10:25 | P.DS ---
Providers Date of admission: 01/04/21 09:33 Expected date of discharge: 01/10/21 Attending physician: Stacie López Consults: 01/04/21 10:48 Consult Physician Routine Consulting Provider: [facility] Consult Reason/Comments: Post Interventional patient Do you want consulting provider notified?: Already Contacted 01/04/21 14:25 Consult Physician Routine Consulting Provider: Tom Hamilton Consult Reason/Comments: Leukocytosis Do you want consulting provider notified?: Yes 01/06/21 13:59 Consult Physician Routine Consulting Provider: Ivan Sutton Consult Reason/Comments: cholelithiasis Do you want consulting provider notified?: Yes Primary care physician: Stacie Maribel [facility] Hospital Course: Discharge diagnosis 1. Acute ST elevation myocardial infarction 2. Critical stenosis in the proximal LAD status post angioplasty and stent placement on presentation. Patient will also require PCI of the RCA this will be arranged outpatient per cardiology 3. Leukocytosis, could be related to pulmonic infiltrate versus gallbladder disease, antibiotics adjusted to IV Zosyn 4. Elevated liver enzymes GI services following. Lipitor DC'd. These numbers are trending down 5. Abnormal gallbladder ultrasound done on 12/18/2020 revealing multiple gallstones consultation for Dr. Sims initiated 6. Underlying history of hypertension 7. Underlying history of hyperlipidemia 8. Underlying history of statin intolerance 9. Underlying history of lif-pixlymb-lvycyidbx diabetes mellitus 10. Underlying history of fibromyalgia with chronic pain 11. Evidence of 5 mm right lower lobe pulmonary nodule will follow closely in the subacute period. 12. new onset paroxysmal atrial fibrillation. Patient currently on IV amiodarone and IV heparin Hospital course Ava Pratt is a 75 year old female who presented to [facility] emergency room with a chief complaint of chest pain, patient describes a midsternal pain that started at 557 this morning and was fairly severe up to 9 out of 10 in severity, she called EMS, she was given sublingual nitroglycerin, EKG was done via EMS and was transmitted to emergency room revealed ST elevation in anterolateral leads, a STEMI alert was called prior to patient arrival, she was taken immediately to the labor relations manager, she was found to have a critical stenosis in the proximal LAD, she underwent angioplasty and stent placement, and was subsequently admitted to intensive care unit. He was evaluated in the emergency room vital examination on presentation rev ealed a temperature of 97.4 pulse 93 respiration 16 blood pressure 111/67 pulse ox 99% on 2 L nasal cannula Laboratory data reveals a white blood count of 13.4 hemoglobin 10.9 platelet count 270 sodium 139 potassium 3.8 BUN 12 creatinine 0.52 glucose 242 AST 98 ALT 48 troponin 0.098 Testing in the emergency room, patient had a chest x-ray that revealed a right infrahilar opacity that could be on the basis of atelectasis or pneumonia, patient also had a 5 mm nodule in the right lower third of the hemithorax. Past medical history is significant for irv-wjlekxg-btmhvjqbh diabetes mellitus, hypertension, hyperlipidemia, vitamin D deficiency, and history of fibromyalgia. Patient also recently had a gallbladder ultrasound on 12/18/2020 that revealed multiple gallstones and sludge within the gallbladder and gallstones within the neck of the gallbladder. On 01/05/2021. Patient's alert and oriented 3. Patient reports just generalized pain related to her fibromyalgia and difficulty sleeping and hospital. Patient denies any chest pain or shortness of breath. Patient denies any nausea vomiting or diarrhea. Patient denies any urinary burning or frequency. Heart rate 101. Respiratory rate 16. Blood pressure 132/76. Oxygenation status 95% on 2 L On 01/06/2021 Patient was seen and examined on the medical floor, he is alert and oriented x 3 in no distress, he denies any complaints there is no fever or chills no headache or dizziness no chest pain no shortness of breath no palpitation no cough no nausea or vomiting no abdominal pain no diarrhea no blood in the stools no burning with urination no frequency or urgency and no hematuria, there is no weakness or numbness in any of the extremities no change in vision speech or gait. Liver enzymes improving AST 157 ALT 61 On 01/07/2021 Patient was seen and examined on the medical floor, he is alert and oriented x 3 in no distress, he denies any complaints there is no fever or chills no headache or dizziness no chest pain no shortness of breath no palpitation no cough no nausea or vomiting no abdominal pain no diarrhea no blood in the stools no burning with urination no frequency or urgency and no hematuria, there is no weakness or numbness in any of the extremities no change in vision speech or gait. At this time will add physical therapy and occupational therapy, medication reviewed continue with current regimen. On 01/08/2021 patient alert and oriented 3. Patient remains on IV heparin and IV amiodarone. Patient remains on IV Zosyn. Infectious disease, GI services, surgical services cardiology services are following. At this time patient denies any chest pain or shortness breath. Patient denies nausea vomiting or diarrhea. Patient denies any urinary burning or frequency On 01/09/2021 patient was seen and examined on the telemetry floor she is alert and oriented 3 in no apparent distress, there is no fever or chills no headache or dizziness no chest pain no shortness of breath no cough no nausea or vomiting no abdominal pain no diarrhea no blood in the stools no burning with urination no frequency or urgency and no hematuria, IV heparin and IV amiodarone were discontinued yesterday, currently patient is maintained on oral Eliquis and oral amiodarone, she is still maintained on IV Zosyn, at this time we are awaiting for further recommendation from cardiology and infectious disease, possible discharge to home in the next 1-2 days On 01/10/2021 patient's alert and oriented 3. Patient discusses that she is eager to go home. Patient denies chest pain or shortness of breath. Patient denies nausea vomiting or diarrhea. Patient denies any urinary burning or frequency. Metoprolol increased yesterday per cardiology. Discussed case with cardiology team okay for discharge. Patient will be DC'd on Brilinta, zetia, eliquis, Aldactone, lisinopril, amiodarone, and Lopressor. Cardiac meds completed per cardiology services. Discussed case with infectious disease. Interaction between amiodarone and Avelox so DC antibiotic will be Augmentin per ID recommendation. Patient advised to follow-up closely with PCP and consulting providers for further management Patient Condition at Discharge: Stable Plan - Discharge Summary Discharge Rx Participant: No New Discharge Prescriptions: New Ticagrelor [Brilinta] 90 mg PO BID #60 tab Ezetimibe [Zetia] 10 mg PO DAILY 30 Days #30 tab Apixaban [Eliquis] 5 mg PO BID 30 Days #60 tab Spironolactone [Aldactone] 25 mg PO DAILY 30 Days #30 tab lisinopriL [Zestril] 5 mg PO DAILY 30 Days #30 tab Amiodarone [Cordarone] 200 mg PO BID 90 Days #180 tab Continue Ergocalciferol (Vitamin D2) [Drisdol (50,000 Iu)] 1,250 mcg PO WEEKLY ALPRAZolam [Xanax] 1 mg PO BID metFORMIN HCL [Glucophage] 500 mg PO DAILY Levothyroxine Sodium [Synthroid] 25 mcg PO DAILY Dorzolamide HCl/Pf [Dorzolamide 2% Eye Drop] 1 drop BOTH EYES BID HYDROcodone/APAP 10-325MG [Sidell 10-325] 2 tab PO Q8H PRN PRN Reason: Pain Amitriptyline HCl 50 mg PO HS Discharge Medication List ALPRAZolam [Xanax] 1 mg PO BID 01/04/21 [History] Amitriptyline HCl 50 mg PO HS 01/04/21 [History] Dorzolamide HCl/Pf [Dorzolamide 2% Eye Drop] 1 drop BOTH EYES BID 01/04/21 [History] Ergocalciferol (Vitamin D2) [Drisdol (50,000 Iu)] 1,250 mcg PO WEEKLY 01/04/21 [History] HYDROcodone/APAP 10-325MG [Sidell 10-325] 2 tab PO Q8H PRN 01/04/21 [History] Levothyroxine Sodium [Synthroid] 25 mcg PO DAILY 01/04/21 [History] metFORMIN HCL [Glucophage] 500 mg PO DAILY 01/04/21 [History] Ticagrelor [Brilinta] 90 mg PO BID #60 tab 01/06/21 [Rx] Amiodarone [Cordarone] 200 mg PO BID 90 Days #180 tab 01/07/21 [Rx] Ezetimibe [Zetia] 10 mg PO DAILY 30 Days #30 tab 01/07/21 [Rx] Spironolactone [Aldactone] 25 mg PO DAILY 30 Days #30 tab 01/07/21 [Rx] lisinopriL [Zestril] 5 mg PO DAILY 30 Days #30 tab 01/07/21 [Rx] Apixaban [Eliquis] 5 mg PO BID 30 Days #60 tab 01/08/21 [Rx] Follow up Appointment(s)/Referral(s): Caleb Mariano MD [STAFF PHYSICIAN] - 1 Week Stacie López MD [Primary Care Provider] - 1-2 days
== END 2021-01-10 11:22 | disposition home or self-care (01) | DRG 247 ==
LOC: EC 09:14 → 2SICU 09:33 → 3SCARD 01-06 15:30
PROVIDERS: ADMIT Internal Medicine; ATTEND Internal Medicine
PROC: 027034Z Dilation of Coronary Artery, One Artery with Drug-eluting Intraluminal Device, Percutaneous Approach (ICD-10-PCS; principal; 2021-01-04 09:36)
PROC: B2111ZZ Fluoroscopy of Multiple Coronary Arteries using Low Osmolar Contrast (ICD-10-PCS; 2021-01-04 09:36)
DX: I21.09 ST elevation (STEMI) myocardial infarction involving other coronary artery of anterior wall (principal); I25.10 Atherosclerotic heart disease of native coronary artery without angina pectoris; I25.2 Old myocardial infarction; I25.5 Ischemic cardiomyopathy; I48.0 Paroxysmal atrial fibrillation; I10 Essential (primary) hypertension; E78.5 Hyperlipidemia, unspecified; E11.9 Type 2 diabetes mellitus without complications; D72.829 Elevated white blood cell count, unspecified; K80.20 Calculus of gallbladder without cholecystitis without obstruction; K82.8 Other specified diseases of gallbladder; M79.7 Fibromyalgia; E55.9 Vitamin D deficiency, unspecified; G89.29 Other chronic pain; R74.01 Elevation of levels of liver transaminase levels; R79.89 Other specified abnormal findings of blood chemistry; Z79.01 Long term (current) use of anticoagulants; Z79.02 Long term (current) use of antithrombotics/antiplatelets; Z79.82 Long term (current) use of aspirin; Z79.84 Long term (current) use of oral hypoglycemic drugs; Z79.890 Hormone replacement therapy; Z79.899 Other long term (current) drug therapy; Z90.710 Acquired absence of both cervix and uterus
CPT/HCPCS: 36415; 71045; 76705; 80053; 80061; 80074; 82550; 83036; 83735; 84145; 84484; 85025; 85610; 85730; 86140; 93005; 93306; 93458; 96374; 99291

== ENCOUNTER 2021-02-12 05:49 | Day surgery (SDC) | payer MEDICARE ==
[2021-02-07 10:41] VITALS: BMI 21.9
[2021-02-12] MEDS ORDERED: ALPRAZolam 0.25 MG TAB PO PRN (05:59)
[2021-02-12] MEDS ORDERED: SODIUM CHLORIDE 0.9% 1,000 ML in EMPTY BAG 1 BAG IV ONE (05:59)
[2021-02-12] MEDS ORDERED: ALPRAZolam 0.5 MG TAB PO PRN (05:59)
[2021-02-12] MEDS ORDERED: NITROGLYCERIN SL TABS 0.4 MG TAB SUBLINGUAL PRN ×2 (05:59→08:26)
[2021-02-12] MEDS ORDERED: ASPIRIN 81 MG ONE (06:11)
[2021-02-12] MEDS ORDERED: CLOPIDOGREL 75 MG TAB ONE (06:22)
[2021-02-12 06:39] VITALS: RESP 16; TEMP 98.9
[2021-02-12 06:42] LABS: Glucose,Whole Blood 128 mg/dL (75-99)
[2021-02-12] MEDS ORDERED: HEPARIN SODIUM,PORCINE 2,500 UNIT in SODIUM CHLORIDE 0.9% 250 ML IRRIGATION PRN (07:00)
[2021-02-12] MEDS ORDERED: HEPARIN SODIUM,PORCINE 10,000 UNIT in SODIUM CHLORIDE 0.9% 1,000 ML IRRIGATION PRN (07:00)
[2021-02-12] MEDS ORDERED: ASPIRIN 325 MG TAB PO ONE (07:00)
[2021-02-12] MEDS ORDERED: ATORVASTATIN 80 MG TAB PO ONE (07:00)
[2021-02-12] MEDS ORDERED: HEPARIN SODIUM 1,000 UN/ML (10ML VL) ONE (07:25)
[2021-02-12] MEDS ORDERED: fentaNYL (PF) 50 MCG/ML 2 ML AMP ONE (07:25)
[2021-02-12] MEDS ORDERED: VERAPAMIL SYRINGE (5 MG/10 ML) INTRAARTER ONE (07:40)
[2021-02-12] MEDS ORDERED: fentaNYL (PF) 50 MCG/ML 2 ML AMP IV ONE (07:40)
[2021-02-12] MEDS ORDERED: LIDOCAINE 1% INJ 10MG/ML (10 ML MDV) SQ ONE (07:40)
[2021-02-12] MEDS ORDERED: HEPARIN SODIUM 1,000 UN/ML (10ML VL) IV ONE (07:41)
[2021-02-12] MEDS ORDERED: NITROGLYCERIN 1000MCG/10ML SYRINGE INTRAARTER ONE (07:51)
[2021-02-12] MEDS ORDERED: NITROGLYCERIN 1000MCG/10ML SYRINGE INTRACORON ONE (07:51)
[2021-02-12] MEDS ORDERED: IOPAMIDOL-370 125ML BTL INJ ONE (08:13)
[2021-02-12] MEDS ORDERED: SODIUM CHLORIDE 0.9% 950 ML IV ONE (08:13)
[2021-02-12] MEDS ORDERED: RX INFO: IV CONTRAST WAS GIVEN 1 EACH MISC MISCELLANE PRN (08:26)
[2021-02-12] MEDS ORDERED: ZOLPIDEM 5 MG TAB PO PRN (08:26)
[2021-02-12] MEDS ORDERED: MAG HYDROX/AL HYDROX/SIMETH 30 ML CUP PO PRN (08:26)
[2021-02-12] MEDS ORDERED: ATROPINE SULFATE 0.1 MG/ML 10ML SYRINGE IV PRN (08:26)
[2021-02-12] MEDS ORDERED: HYDROcodone/APAP 10-325MG 1 EACH TAB PO PRN (08:27)
[2021-02-12] MEDS ORDERED: SODIUM CHLORIDE 0.9% 1,000 ML IV SCH (08:30)
[2021-02-12] MEDS ORDERED: SPIRONOLACTONE 25 MG TAB PO SCH (09:00)
[2021-02-12] MEDS ORDERED: AMIODARONE 200 MG TAB PO SCH (09:00)
[2021-02-12] MEDS ORDERED: ASCORBIC ACID 500 MG TAB PO SCH (09:00)
[2021-02-12] MEDS ORDERED: METOPROLOL TARTRATE 50 MG TAB PO SCH (09:00)
[2021-02-12] MEDS ORDERED: lisinopriL 5 MG TAB PO SCH (09:00)
[2021-02-12] MEDS ORDERED: DORZOLAMIDE HCL BOTH EYES SCH (09:00)
[2021-02-12] MEDS ORDERED: ERGOCALCIFEROL 1,250 MCG (50,000 IU) CAPSULE PO SCH (09:00)
--- NOTE | 2021-02-12 10:12 | PTCA ---
PERCUTANEOUSTRANS CORORONARY ANGIOGRAPHY DATE OF PROCEDURE: 02/12/2021 Mrs. Pratt is a 75-year-old female who presented a few weeks ago with an acute myocardial infarction and underwent cardiac catheterization. At that time she was found to have subtotally occluded proximal LAD and underwent stenting of that vessel. At the same time she was found to have significant obstructive disease involving the right coronary artery. In view of that, she is admitted electively to undergo stenting of the RCA. The procedure as well as its risks and the complications were discussed with the patient, who was in full understanding and agreement. PROCEDURE DESCRIPTION: The patient was brought to the cath lab manager in a fasting, semi-sedated state after receiving fentanyl and Benadryl and achieving a moderate conscious sedated state. Using Xylocaine anesthesia and Seldinger technique, a 6-Latvian sheath was introduced in the right radial artery. Selective right coronary angiography was performed using 6- Latvian FR4 guiding catheter. After cannulating the right coronary ostium a 0.014 balanced medium weight J-wire was advanced across the lesion, positioned distally. Then a 3.25 x 15 mm Xience Skypoint stent was deployed distally and post-dilated at 16 atmospheres. Following that the balloon was removed and a 3.25 x 18 mm Xience Skypoint stent was deployed in the mid segment and post-dilated at 16 atmospheres. Following that the balloon was removed and a 3.5 x 15 mm NC Trek balloon was advanced and one inflation in the proximal stent was done at 12 atmospheres. After the last inflation, after appropriate wait, the balloon and the guidewire were withdrawn back into the guiding catheter. Images were obtained and repeated. Those images revealed stable successful stenting. At that point the guiding catheter, the balloon and the guidewire were removed and a 5-Latvian 3.5 bend left Ivon catheter was introduced into the system and images of the LAD stented segment were performed. Following that, catheter and sheath were removed. Hemostasis was obtained with deployment of a TR band. There was no immediate complication. Patient was returned to her room in stable condition. Of note, the patient had chest discomfort and EKG changes with the inflation that resolved at the end of the procedure. She received 4500 units of intravenous heparin. Her ACT was followed. She was continued on clopidogrel. RESULTS: 1. Successful stenting of the distal RCA with reduction of stenosis from 80% to 0%. 2. Successful stenting of the mid RCA with reduction of stenosis from 85% to 0%. 3. Patent stent of the proximal LAD. RECOMMENDATIONS: The results of the testing were discussed with the patient and her family. She will be continued on aspirin, clopidogrel as well as aggressive coronary risk modifications. Those findings and recommendations were discussed with her, and she is in full understanding and agreement. Duration of sedation was 32 minutes. MMDENNIS / INESN: [id number] /
--- NOTE | 2021-02-12 10:12 | LTR ---
February 12, 2021 To: Dr. López Re: Ava Pratt (45) Dear Dr. López, I had the pleasure of performing coronary angioplasty and stenting on Mrs. Pratt at [facility] on February 12, and a full copy of the procedure note will be forwarded to you. In brief, she underwent successful stenting of her proximal and mid RCA. The stented segment of the proximal LAD was patent. I am hopeful that this procedure will stabilize her status. Thank you again for allowing me to participate in this patient's care. Please feel free to call with any questions. Sincerely, Caleb Mariano M.D. HARJIT / SANDRA: [id number] /
[2021-02-12 12:57] VITALS: BP 138/72; PULSE 81
[2021-02-12] MEDS ORDERED: AMITRIPTYLINE HCL 50 MG TAB PO SCH (21:00)
[2021-02-12] MEDS ORDERED: ALPRAZolam 1 MG TAB PO SCH (21:00)
[2021-02-13] MEDS ORDERED: CLOPIDOGREL 75 MG TAB PO SCH (09:00)
[2021-02-13] MEDS ORDERED: ASPIRIN 81 MG PO SCH (09:00)
== END 2021-02-12 12:57 | disposition home or self-care (01) ==
LOC: CATHCVL 05:49
PROVIDERS: ATTEND Internal Medicine Interventional Cardiology
DX: I25.10 Atherosclerotic heart disease of native coronary artery without angina pectoris (principal); I21.9 Acute myocardial infarction, unspecified; E11.9 Type 2 diabetes mellitus without complications; Z95.5 Presence of coronary angioplasty implant and graft; I25.5 Ischemic cardiomyopathy; E78.2 Mixed hyperlipidemia; I48.0 Paroxysmal atrial fibrillation; Z79.84 Long term (current) use of oral hypoglycemic drugs; Z79.899 Other long term (current) drug therapy; Z79.02 Long term (current) use of antithrombotics/antiplatelets
CPT/HCPCS: C9600; C1769 ×3; C1887; C1894; C1874 ×2; J3010; J1644; J2001; Q9967

== ENCOUNTER 2021-03-09 09:57 | Inpatient (IN) | payer MEDICARE ==
[2021-03-09] MEDS ORDERED: ASPIRIN 81 MG PO STA (10:31)
[2021-03-09] MEDS ORDERED: HEPARIN SODIUM 1,000 UN/ML (10ML VL) IV ONE (10:40)
[2021-03-09] MEDS ORDERED: HEPARIN SODIUM 1,000 UN/ML (10ML VL) IV PRN (10:40)
--- NOTE | 2021-03-09 10:40 | ED ---
General Adult HPI - General Chief complaint: Chest Pain Stated complaint: chest pain Time Seen by Provider: 03/09/21 10:01 Source: patient, EMS Mode of arrival: EMS Limitations: no limitations - History of Present Illness Initial comments: Dictation was produced using [employer] dictation software. please excuse any grammatical, word or spelling errors. Chief Complaint: 75-year-old female presents to the emergency department for chest pain History of Present Illness: Patient is a 75-year-old female she presents to the emergency department for chest pain. Patient is a extensive history of coronary artery disease. She has 3 stents. Most recently she had a stent placed earlier this month. She was instructed by her trauma nurse to seek immediate medical attention if she has any recurrence or worsening of chest pain. Patient states this morning at 6 AM she began having 10 out of 10 chest pain. She states is not associated with diaphoresis or nausea. She states it is nonradiating. EMS was called patient is brought to the emergency room. Patient states that after being loaded onto the stretcher she reports that her symptoms gone away. She denies any active symptoms at this time at the bedside. The ROS documented in this emergency department record has been reviewed and confirmed by me. Those systems with pertinent positive or negative responses have been documented in the HPI. All other systems are other negative and/or noncontributory. PHYSICAL EXAM: General Impression: Alert and oriented x3, not in acute distress HEENT: Normocephalic atraumatic, extra-ocular movements intact, pupils equal and reactive to light bilaterally, mucous membranes moist. Cardiovascular: Heart regular rate and rhythm Chest: Able to complete full sentences, no retractions, no tachypnea Abdomen: abdomen soft, non-tender, non-distended, no organomegaly Musculoskeletal: Pulses present and equal in all extremities, no peripheral edema Motor: no focal deficits noted Neurological: CN II-XII grossly intact, no focal motor or sensory deficits noted Skin: Intact with no visualized rashes Psych: Normal affect and mood ED course: 75-year-old female with past medical history of coronary artery disease presents to the emergency room for chest pain. Vital signs upon arrival are within acceptable limits. patient asymptomatic upon arrival. ekg is nonspecific but concerning for ischemia. Laboratory evaluation obtained. Mild leukocytosis 16.3. Coag panel is negative. Metabolic panel is within acceptable limits. Troponin is 0.017. Magnesemia is 1.5. Patient given oral magnesium. Patient reevaluated at bedside at 1:00 PM found to be in stable medical condition. Patient denies any active chest symptoms at this time. Patient is on heparin given aspirin. Patient be admitted for cardiac monitoring. Daughter is concerned about functional status. xray shows right-sided infiltrate. Patient denies any cough or respiratory infectious symptoms. She does however have a white count. Patient covered with antibiotics to treat commune acquired pneumonia. EKG interpretation: Ventricular rate 77, normal sinus rhythm, W[place] interval 176, QRS 102, QTC 486. No W[place] prolongation, no QTC prolongation. ST depressions in lateral leads. Most recent EKG was from January [address] segment elevation PR at that time. Overall this EKG is nonspecific. - Related Data Home Medications Medication Instructions Recorded Confirmed ALPRAZolam [Xanax] 1 mg PO HS 01/04/21 02/12/21 Amitriptyline HCl 50 mg PO HS 01/04/21 02/12/21 HYDROcodone/APAP 10-325MG [[place] 2 tab PO Q8H PRN 01/04/21 02/12/21 10-325] metFORMIN HCL [Glucophage] 500 mg PO DAILY 01/04/21 02/12/21 Amiodarone [Cordarone] 200 mg PO DAILY 02/07/21 02/12/21 Ascorbic Acid [Vitamin C] 500 mg PO DAILY 02/07/21 02/12/21 Clopidogrel [Plavix] 75 mg PO DAILY 02/07/21 02/12/21 Apixaban [Eliquis] 5 mg PO BID@1000,0 03/09/21 03/09/21 Cholecalciferol [Vitamin D3 (25 50 mcg PO DAILY@1400 03/09/21 03/09/21 Mcg = 1000 Iu)] Ezetimibe [Zetia] 10 mg PO DAILY@1000 03/09/21 03/09/21 Metoprolol Tartrate [Lopressor] 50 mg PO TID@1000,1600,2200 03/09/21 03/09/21 Spironolactone [Aldactone] 25 mg PO DAILY@1000 03/09/21 03/09/21 lisinopriL [Zestril] 5 mg PO DAILY@99903/09/21 03/09/21 Allergies Allergy/AdvReac Type Severity Reaction Status Date / Time ticagrelor [From Brilinta] Allergy Dyspnea Verified 03/09/21 12:51 zolpidem [From Ambien] Allergy "opposite Verified 03/09/21 12:51 effect" aspirin AdvReac Abdominal Verified 03/09/21 12:51 Pain atorvastatin [From Lipitor] AdvReac Abdominal Verified 03/09/21 12:51 Pain carisoprodol [From Soma] AdvReac "not Verified 03/09/21 12:51 effective" cyclobenzaprine AdvReac "not Verified 03/09/21 12:51 [From Flexeril] effective" gabapentin [From Neurontin] AdvReac "not Verified 03/09/21 12:51 effective" NSAIDS (Non-Steroidal AdvReac Abdominal Verified 03/09/21 12:51 Anti-Inflamma Pain sertraline [From Zoloft] AdvReac "not Verified 03/09/21 12:51 effective" Cvmcush-Vdx-Ovk Reductase AdvReac Abdominal Verified 03/09/21 12:51 Inhibitor Pain tramadol AdvReac "not Verified 03/09/21 12:51 effective" Review of Systems ROS Statement: Those systems with pertinent positive or pertinent negative responses have been documented in the HPI. ROS Other: All systems not noted in ROS Statement are negative. Past Medical History Past Medical History: Atrial Fibrillation, Diabetes Mellitus, Fibromyalgia, Myocardial Infarction (PR) Additional Past Medical History / Comment(s): Stent placed x2 in Feb 12, 2021 Last Myocardial Infarction Date:: 01/04/21 History of Any Multi-Drug Resistant Organisms: None Reported Past Surgical History: Hysterectomy Additional Past Surgical History / Comment(s): Hysterectomy 1986 Past Anesthesia/Blood Transfusion Reactions: No Reported Reaction Additional Past Anesthesia/Blood Transfusion Reaction / Comment(s): "wake up from anesthesia very quickly" Past Psychological History: No Psychological Hx Reported Smoking Status: Never smoker Past Alcohol Use History: None Reported Past Drug Use History: None Reported - Past Family History Mother Family Medical History: Cancer Father Family Medical History: Cancer General Exam Limitations: no limitations Course Vital Signs 03/09/21 03/09/21 03/09/21 10:05 10:13 11:29 Temperature 98.1 F Pulse Rate 80 71 Pulse Rate [ 77 Bilateral Training Designer ] Respiratory 16 18 Rate Blood Pressure 122/50 110/40 O2 Sat by Pulse 98 99 Oximetry 03/09/21 12:54 Temperature Pulse Rate 65 Pulse Rate [ Bilateral Training Designer ] Respiratory 16 Rate Blood Pressure 94/40 O2 Sat by Pulse 97 Oximetry Medical Decision Making - Lab Data Result diagrams: 03/09/21 11:14 03/09/21 11:14 Lab Results 03/09/21 03/09/21 03/09/21 Range/Units 11:14 11:14 11:14 WBC 16.3 H (3.8-10.6) k/uL RBC 3.66 L (3.80-5.40) m/uL Hgb 10.8 L (11.4-16.0) gm/dL Hct 34.7 (34.0-46.0) % MCV 94.8 (80.0-100.0) fL MCH 29.6 (25.0-35.0) pg MCHC 31.3 (31.0-37.0) g/dL RDW 15.0 (11.5-15.5) % Plt Count 365 (150-450) k/uL MPV 8.4 Neutrophils % 93 % Lymphocytes % 4 % Monocytes % 3 % Eosinophils % 0 % Basophils % 0 % Neutrophils # 15.2 H (1.3-7.7) k/uL Lymphocytes # 0.6 L (1.0-4.8) k/uL Monocytes # 0.4 (0-1.0) k/uL Eosinophils # 0.0 (0-0.7) k/uL Basophils # 0.0 (0-0.2) k/uL Hypochromasia Slight PT 12.1 H (9.0-12.0) sec INR 1.2 H (<1.2) APTT 27.0 (22.0-30.0) sec Sodium 134 L (137-145) mmol/L Potassium 5.4 H (3.5-5.1) mmol/L Chloride 106 (98-107) mmol/L Carbon Dioxide 14 L (22-30) mmol/L Anion Gap 14 mmol/L BUN 23 H (7-17) mg/dL Creatinine 0.72 (0.52-1.04) mg/dL Est GFR (CKD-EPI)AfAm >90 (>60 ml/min/1.73 sqM) Est GFR (CKD-EPI)NonAf 83 (>60 ml/min/1.73 sqM) Glucose 186 H (74-99) mg/dL Calcium 8.9 (8.4-10.2) mg/dL Magnesium 1.5 L (1.6-2.3) mg/dL Total Bilirubin 1.0 (0.2-1.3) mg/dL AST 23 (14-36) U/L ALT 6 (4-34) U/L Alkaline Phosphatase 67 (38-126) U/L Troponin I (0.000-0.034) ng/mL Total Protein 6.3 (6.3-8.2) g/dL Albumin 3.8 (3.5-5.0) g/dL Lipase 49 (23-300) U/L 03/09/21 Range/Units 11:14 WBC (3.8-10.6) k/uL RBC (3.80-5.40) m/uL Hgb (11.4-16.0) gm/dL Hct (34.0-46.0) % MCV (80.0-100.0) fL MCH (25.0-35.0) pg MCHC (31.0-37.0) g/dL RDW (11.5-15.5) % Plt Count (150-450) k/uL MPV Neutrophils % % Lymphocytes % % Monocytes % % Eosinophils % % Basophils % % Neutrophils # (1.3-7.7) k/uL Lymphocytes # (1.0-4.8) k/uL Monocytes # (0-1.0) k/uL Eosinophils # (0-0.7) k/uL Basophils # (0-0.2) k/uL Hypochromasia PT (9.0-12.0) sec INR (<1.2) APTT (22.0-30.0) sec Sodium (137-145) mmol/L Potassium (3.5-5.1) mmol/L Chloride (98-107) mmol/L Carbon Dioxide (22-30) mmol/L Anion Gap mmol/L BUN (7-17) mg/dL Creatinine (0.52-1.04) mg/dL Est GFR (CKD-EPI)AfAm (>60 ml/min/1.73 sqM) Est GFR (CKD-EPI)NonAf (>60 ml/min/1.73 sqM) Glucose (74-99) mg/dL Calcium (8.4-10.2) mg/dL Magnesium (1.6-2.3) mg/dL Total Bilirubin (0.2-1.3) mg/dL AST (14-36) U/L ALT (4-34) U/L Alkaline Phosphatase (38-126) U/L Troponin I 0.017 (0.000-0.034) ng/mL Total Protein (6.3-8.2) g/dL Albumin (3.5-5.0) g/dL Lipase (23-300) U/L Critical Care Time Critical Care Time: Yes Total Critical Care Time: 33 Disposition Clinical Impression: Chest pain, Pulmonary infiltrate on chest x-ray Disposition: ADMITTED IP TO THIS HOSP Condition: Fair Referrals: Stacie López MD [Primary Care Provider] - 1-2 days
[2021-03-09] MEDS: HEPARIN SOD,PORK IN 0.45% NACL 25,000 UNIT in 0.45% NACL 1 250ML.BAG IV SCH (11:05)
[2021-03-09 11:37] LABS: INR 1.2 (<1.2); Prothrombin Time 12.1 sec (9.0-12.0)
--- NOTE | 2021-03-09 11:52 | XR ---
EXAMINATION TYPE: XR chest 2V DATE OF EXAM: 03/09/2021 COMPARISON: 01/04/2021 HISTORY: Chest pain TECHNIQUE: Frontal and lateral views of the chest are obtained. FINDINGS: There has been interval development of a partially consolidative opacity in the right lowe r lobe which is suspicious for pneumonia. Clinical correlation and short-term follow-up to resolution is recommended. Left lung is clear. There is no pleural effusion or pneumothorax. Heart size normal and the pulmonary vasculature does not appear congested. The osseous structures are intact IMPRESSION: Based on the prior study of 01/04/2021, the current study reveals new partially consolida tive opacity in the right lung base suspicious for pneumonic infiltrate. Short-term follow-up to reso lution is recommended.
[2021-03-09 12:05] LABS: Basophils % (A) 0 %; Eosinophils % (A) 0 %; HCT 34.7 % (34.0-46.0); HGB 10.8 gm/dL (11.4-16.0); Hypochromasia Slight; Lymphocytes # (A) 0.6 k/uL (1.0-4.8); Lymphocytes % (A) 4 %; MCH 29.6 pg (25.0-35.0); MCHC 31.3 g/dL (31.0-37.0); MCV 94.8 fL (80.0-100.0); Mean Platelet Volume 8.4; Monocytes # (A) 0.4 k/uL (0-1.0); Monocytes % (A) 3 %; Neutrophils # (A) 15.2 k/uL (1.3-7.7); Neutrophils % (A) 93 %; Platelet Count 365 k/uL (150-450); RBC 3.66 m/uL (3.80-5.40); WBC 16.3 k/uL (3.8-10.6)
[2021-03-09 12:15] LABS: ALT 6 U/L (4-34); AST 23 U/L (14-36); African American GFR (CKD) >90 (>60 ml/min/1.73 sqM); Albumin 3.8 g/dL (3.5-5.0); Alkaline Phosphatase 67 U/L (38-126); Anion Gap 14 mmol/L; Blood Urea Nitrogen 23 mg/dL (7-17); Calcium 8.9 mg/dL (8.4-10.2); Carbon Dioxide 14 mmol/L (22-30); Chloride 106 mmol/L (98-107); Glucose 186 mg/dL (74-99); Lipase 49 U/L (23-300); Magnesium 1.5 mg/dL (1.6-2.3); Non-African American GFR(CKD) 83 (>60 ml/min/1.73 sqM); Potassium 5.4 mmol/L (3.5-5.1); Sodium 134 mmol/L (137-145); Total Protein 6.3 g/dL (6.3-8.2)
[2021-03-09] MEDS ORDERED: NITROGLYCERIN SL TABS 0.4 MG TAB SUBLINGUAL PRN (12:51)
[2021-03-09] MEDS ORDERED: AZITHROMYCIN 500 MG in SODIUM CHLORIDE 0.9% 250 ML IVPB STA (12:54)
[2021-03-09] MEDS ORDERED: cefTRIAXone IN SWFI 1,000 MG/10 ML SYRINGE IVP STA (12:54)
[2021-03-09] MEDS ORDERED: MAGNESIUM OXIDE 400 MG TAB PO STA (12:55)
[2021-03-09] MEDS ORDERED: ALPRAZolam 1 MG TAB PO PRN (13:18)
[2021-03-09] MEDS: CHOLECALCIFEROL 25 MCG (1000 IU) TABLET PO SCH (14:51)
[2021-03-09] MEDS: HYDROcodone/APAP 10-325MG 1 EACH TAB PO PRN ×2 (14:52→21:32)
[2021-03-09] MEDS: METOPROLOL TARTRATE 50 MG TAB PO SCH ×2 (17:24→20:14)
[2021-03-09 19:06] LABS: Appearance,Urine Clear (Clear); Bilirubin,Urine Negative (Negative); Blood,Urine Negative (Negative); Color,Urine Yellow; Glucose,Urine (UA) Negative (Negative); Ketones,Urine 1+ (Negative); Leukocyte Esterase,Urine Negative (Negative); Nitrite,Urine Negative (Negative); Protein,Urine Negative (Negative); Specific Gravity,Urine 1.018 (1.001-1.035); Urobilinogen,Urine <2.0 mg/dL (<2.0)
[2021-03-09] MEDS: CLOPIDOGREL 75 MG TAB PO SCH (21:28)
[2021-03-09] MEDS: AMIODARONE 200 MG TAB PO SCH (21:29)
[2021-03-09] MEDS: AMITRIPTYLINE HCL 50 MG TAB PO SCH (21:29)
[2021-03-09] MEDS ORDERED: APIXABAN 5 MG TAB PO SCH (22:00)
[2021-03-10] MEDS: HYDROcodone/APAP 10-325MG 1 EACH TAB PO PRN ×3 (05:52→20:18)
[2021-03-10 06:31] LABS: Appearance,Urine Turbid (Clear); Bacteria,Urine Occasional /hpf; Bilirubin,Urine Negative (Negative); Blood,Urine Large (Negative); Color,Urine Red; Glucose,Urine (UA) Negative (Negative); Ketones,Urine Negative (Negative); Leukocyte Esterase,Urine Small (Negative); Nitrite,Urine Negative (Negative); PH, Urine 5.5 (5.0-8.0); Protein,Urine 1+ (Negative); RBC,Urine >182 /hpf (0-5); Specific Gravity,Urine 1.015 (1.001-1.035); Urobilinogen,Urine <2.0 mg/dL (<2.0); WBC,Urine 24 /hpf (0-5)
[2021-03-10] MEDS: ASCORBIC ACID 500 MG TAB PO SCH (08:00)
[2021-03-10] MEDS: EZETIMIBE 10 MG TAB PO SCH (08:00)
[2021-03-10] MEDS: METOPROLOL TARTRATE 50 MG TAB PO SCH ×2 (08:21→22:22)
[2021-03-10] MEDS: lisinopriL 5 MG TAB PO SCH (08:21)
[2021-03-10] MEDS: AMIODARONE 200 MG TAB PO SCH (08:38)
[2021-03-10] MEDS: SPIRONOLACTONE 25 MG TAB PO SCH (08:46)
[2021-03-10 08:49] LABS: Basophils % (A) 0 %; Eosinophils # (A) 0.2 k/uL (0-0.7); Eosinophils % (A) 2 %; HCT 31.7 % (34.0-46.0); HGB 9.8 gm/dL (11.4-16.0); Hypochromasia Moderate; Lymphocytes # (A) 1.9 k/uL (1.0-4.8); Lymphocytes % (A) 16 %; MCH 29.7 pg (25.0-35.0); MCV 95.7 fL (80.0-100.0); Mean Platelet Volume 8.9; Monocytes # (A) 0.4 k/uL (0-1.0); Monocytes % (A) 3 %; Neutrophils # (A) 9.7 k/uL (1.3-7.7); Neutrophils % (A) 79 %; Platelet Count 381 k/uL (150-450); RBC 3.31 m/uL (3.80-5.40); RDW 15.3 % (11.5-15.5); WBC 12.4 k/uL (3.8-10.6)
--- NOTE | 2021-03-10 08:52 | P.CRDCN ---
History of Present Illness History of present illness: HISTORY OF PRESENTING ILLNESS Patient is a pleasant 75-year-old female with history of coronary artery disease status post STEMI December 2020, gallstones, cardiomyopathy, hypertension, hyperlip idemia, statin intolerance, diabetes mellitus, fibromyalgia, paroxysmal atrial fibrillation who presents secondary to episode of chest pain. She admits that initially in December as well as with her repeat stenting to beginning of February her pain felt somewhat different however she had around 2 hours of chest discomfort which did not go away and therefore called EMS. By the time EMS arrived and once she was going into the ambulance she states her pain suddenly disappeared. She has not had recurrence since then. She denies any other complaints, no recent fevers, chills, cough. She was found to have leukocytosis with blood cell 16.3, hemoglobin 10.8, platelets 365, sodium 134, potassium 5.4, carbon dioxide 14, creatinine 0.7, magnesium 1.5, troponin 0.017, 0.12, 0.18. Chest x-ray was concerning for a right sided pneumonia. Currently she states she feels well and is walking well without any difficulty. EKG shows normal sinus rhythm, left axis deviation, ST depressions in the infero lateral leads, T-wave inversion in aVL. REVIEW OF SYSTEMS At the time of my exam: CONSTITUTIONAL: Denies fever or chills. CARDIOVASCULAR: +chest pain, no shortness of breath, orthopnea, PND or palpit ations. RESPIRATORY: Denies cough. GASTROINTESTINAL: Denies abdominal pain, diarrhea, constipation, nausea or vomiting. MUSCULOSKELETAL: Denies myalgias. NEUROLOGIC: Denies numbness, tingling or weakness. ENDOCRINE: Denies fatigue, weight change, polydipsia or polyurina. GENITOURINARY: Denies burning, hematuria or urgency with micturation. HEMATOLOGIC: Denies history of anemia or bleeding. PHYSICAL EXAMINATION Vital signs reviewed. CONSTITUTIONAL: No apparent distress. HEENT: Head is normocephalic. Pupils are equal, round. Sclerae anicteric. Mucous membranes of the mouth are moist. No JVD. No carotid bruit. CHEST EXAMINATION: Lungs are clear to auscultation. No chest wall tenderness is noted on palpation or with deep breathing. HEART EXAMINATION: Regular rate and rhythm. S1, S2 heard. No murmurs, gallops or rub. ABDOMEN: Soft, nontender. Positive bowel sounds. EXTREMITIES: 2+ peripheral pulses, no lower extremity edema and no calf tenderness. NEUROLOGIC EXAMINATION: Patient is awake, alert and oriented x3. ASSESSMENT 1. Non-STEMI 2. Coronary artery disease status post PCI of LAD and RCA 3. Hypertension 4. Hyperlipidemia 5. Leukocytosis, acidosis, chest x-ray concerning for pneumonia however no clinical symptoms 6. Paroxysmal atrial fibrillation currently sinus rhythm 7. Ischemic cardiomyopathy ejection fraction 30-35% 8. Diabetes mellitus type 2 9. Anemia PLAN Patient's symptoms concerning for a type I non-STEMI with EKG changes as well as a rising troponin. Her symptoms are somewhat different than her prior [place] however appear concerning. Currently chest pain-free. Continue with heparin drip and Plavix, patient on Plavix and Eliquis at home. Patient also with acidosis, leukocytosis and chest x-ray concerning for pneumonia however no clinical symptoms consistent with pneumonia. Discussed concern of possible non- STEMI and progression of disease with recommendations for heart catheterization and patient is agreeable. Check 2-D echo. Past Medical History Past Medical History: Atrial Fibrillation, Diabetes Mellitus, Fibromyalgia, Myocardial Infarction ([place]) Additional Past Medical History / Comment(s): Stent placed x2 in Feb 12, 2021 Last Myocardial Infarction Date:: 01/04/21 History of Any Multi-Drug Resistant Organisms: None Reported Past Surgical History: Hysterectomy Additional Past Surgical History / Comment(s): Hysterectomy 1986 Past Anesthesia/Blood Transfusion Reactions: No Reported Reaction Additional Past Anesthesia/Blood Transfusion Reaction / Comment(s): "wake up from anesthesia very quickly" Past Psychological History: No Psychological Hx Reported Smoking Status: Never smoker Past Alcohol Use History: None Reported Past Drug Use History: None Reported - Past Family History Mother Family Medical History: Cancer Father Family Medical History: Cancer Medications and Allergies Home Medications Medication Instructions Recorded Confirmed Type ALPRAZolam [Xanax] 1 mg PO BID PRN 01/04/21 03/09/21 History Amitriptyline HCl 50 mg PO HS@2200 01/04/21 03/09/21 History HYDROcodone/APAP 10-325MG [[place] 1 - 2 tab PO Q8H PRN 01/04/21 03/09/21 History 10-325] metFORMIN HCL [Glucophage] 500 mg PO DAILY@1000 01/04/21 03/09/21 History Amiodarone [Cordarone] 200 mg PO BID@1000,2200 02/07/21 03/09/21 History Ascorbic Acid [Vitamin C] 500 mg PO DAILY@1000 02/07/21 03/09/21 History Clopidogrel [Plavix] 75 mg PO DAILY@0 02/07/21 03/09/21 History Apixaban [Eliquis] 5 mg PO BID@1000,2200 03/09/21 03/09/21 History Cholecalciferol [Vitamin D3 (25 50 mcg PO DAILY@1400 03/09/21 03/09/21 History Mcg = 1000 Iu)] Ezetimibe [Zetia] 10 mg PO DAILY@1000 03/09/21 03/09/21 History Metoprolol Tartrate [Lopressor] 50 mg PO TID@1000,1600,219903/09/21 03/09/21 History Spironolactone [Aldactone] 25 mg PO DAILY@1000 03/09/21 03/09/21 History lisinopriL [Zestril] 5 mg PO DAILY@99903/09/21 03/09/21 History Allergies Allergy/AdvReac Type Severity Reaction Status Date / Time ticagrelor [From Brilinta] Allergy Dyspnea Verified 03/09/21 12:51 zolpidem [From Ambien] Allergy "opposite Verified 03/09/21 12:51 effect" aspirin AdvReac Abdominal Verified 03/09/21 12:51 Pain atorvastatin [From Lipitor] AdvReac Abdominal Verified 03/09/21 12:51 Pain carisoprodol [From Soma] AdvReac "not Verified 03/09/21 12:51 effective" cyclobenzaprine AdvReac "not Verified 03/09/21 12:51 [From Flexeril] effective" gabapentin [From Neurontin] AdvReac "not Verified 03/09/21 12:51 effective" NSAIDS (Non-Steroidal AdvReac Abdominal Verified 03/09/21 12:51 Anti-Inflamma Pain sertraline [From Zoloft] AdvReac "not Verified 03/09/21 12:51 effective" [id number] Reductase AdvReac Abdominal Verified 03/09/21 12:51 Inhibitor Pain tramadol AdvReac "not Verified 03/09/21 12:51 effective" Physical Exam Vitals: Vital Signs Temp Pulse Pulse Pulse Resp BP BP 09/27/21 07:00 98.2 F 87 16 103/60 03/10/21 02:00 74 03/10/21 00:08 97.6 F 74 16 113/61 03/09/21 20:00 77 16 03/09/21 19:14 97.9 F 77 16 95/58 03/09/21 15:00 97.8 F 77 16 91/43 03/09/21 14:54 71 18 116/54 03/09/21 14:17 67 18 92/42 03/09/21 12:54 65 16 94/40 03/09/21 11:29 71 18 110/40 03/09/21 10:13 77 03/09/21 10:05 98.1 F 80 16 122/50 Pulse Ox 03/10/21 07:00 95 03/10/21 02:00 03/10/21 00:08 96 03/09/21 20:00 03/09/21 19:14 97 03/09/21 15:00 91 L 03/09/21 14:54 97 03/09/21 14:17 97 03/09/21 12:54 97 03/09/21 11:29 99 03/09/21 10:13 03/09/21 10:05 98 Intake and Output 03/09/21 03/10/21 03/10/21 22:59 06:59 14:59 Intake Total 88.309 45.74 Output Total 400 650 Balance -311.691 -604.26 Intake: Intake, IV Titration 88.309 45.74 Amount Heparin Sod,Pork in 0.45% 88.309 45.74 NaCl 25,000 unit In 0.45 % NaCl 1 250ml.bag @ 12 UNITS/KG/HR 8.279 mls/hr IV .Q24H [facility] Rx#: [id number] Output: Urine 400 650 Straight 400 Other: # Voids 1 Weight 68.993 kg Results 03/09/21 11:14 03/09/21 11:14 Cardiac Enzymes 03/09/21 03/09/21 03/09/21 Range/Units 11:14 11:14 14:20 AST 23 (14-36) U/L Troponin I 0.017 0.122 H* (0.000-0.034) ng/mL 03/09/21 Range/Units 18:32 AST (14-36) U/L Troponin I 0.181 H* (0.000-0.034) ng/mL Coagulation 03/09/21 03/09/21 03/10/21 Range/Units 11:14 18:32 05:04 PT 12.1 H (9.0-12.0) sec APTT 27.0 159.5 H* 46.7 H (22.0-30.0) sec CBC 03/09/21 Range/Units 11:14 WBC 16.3 H (3.8-10.6) k/uL RBC 3.66 L (3.80-5.40) m/uL Hgb 10.8 L (11.4-16.0) gm/dL Hct 34.7 (34.0-46.0) % Plt Count 365 (150-450) k/uL Comprehensive Metabolic Panel 03/09/21 Range/Units 11:14 Sodium 134 L (137-145) mmol/L Potassium 5.4 H (3.5-5.1) mmol/L Chloride 106 (98-107) mmol/L Carbon Dioxide 14 L (22-30) mmol/L BUN 23 H (7-17) mg/dL Creatinine 0.72 (0.52-1.04) mg/dL Glucose 186 H (74-99) mg/dL Calcium 8.9 (8.4-10.2) mg/dL AST 23 (14-36) U/L ALT 6 (4-34) U/L Alkaline Phosphatase 67 (38-126) U/L Total Protein 6.3 (6.3-8.2) g/dL Albumin 3.8 (3.5-5.0) g/dL Current Medications Generic Name Dose Route Start Last Admin Trade Name Freq PRN Reason Stop Dose Admin Hydrocodone Bitart/Acetaminophen 1 each 03/09/21 13:18 03/10/21 05:52 Hydrocodone/Apap 10-325mg 1 Each Tab PO 1 each Q6HR PRN Administration Moderate to Severe Pain Alprazolam 1 mg 03/09/21 13:18 03/09/21 14:52 Alprazolam 1 Mg Tab PO 1 mg BID PRN Administration Anxiety Amiodarone HCl 200 mg 03/09/21 22:00 03/10/21 08:38 Amiodarone 200 Mg Tab PO 200 mg BID@1000,2200 [facility] Administration Amitriptyline HCl 50 mg 03/09/21 22:00 03/09/21 21:29 Amitriptyline Hcl 50 Mg Tab PO 50 mg HS@2200 [facility] Administration Ascorbic Acid 500 mg 03/10/21 10:00 03/10/21 08:00 Ascorbic Acid 500 Mg Tab PO 500 mg DAILY@1000 [facility] Administration Aspirin 325 mg 03/10/21 09:00 03/10/21 08:01 Aspirin 325 Mg Tab PO 325 mg DAILY [facility] Administration Cholecalciferol 50 mcg 03/09/21 14:00 03/09/21 14:51 Cholecalciferol 25 Mcg (1000 Iu) Tablet PO 50 mcg DAILY@1400 [facility] Administration Clopidogrel Bisulfate 75 mg 03/09/21 22:00 03/09/21 21:28 Clopidogrel 75 Mg Tab PO 75 mg DAILY@2200 [facility] Administration Ezetimibe 10 mg 03/10/21 10:00 03/10/21 08:00 Ezetimibe 10 Mg Tab PO 10 mg DAILY@1000 [facility] Administration Heparin Sodium (Porcine) 0 unit 03/09/21 10:40 Heparin Sodium 1,000 Un/Ml (10ml Vl) IV PER PROTOCOL PRN Low PTT Protocol Heparin Sodium/Sodium Chloride 250 mls @ 8.279 mls/hr 03/09/21 10:45 03/10/21 06:07 25,000 unit/ Sodium Chloride IV 9 units/kg/hr .Q24H [facility] 6.209 mls/hr Titration Protocol 12 UNITS/KG/HR Lisinopril 5 mg 03/10/21 10:00 03/10/21 08:21 Lisinopril 5 Mg Tab PO Not Given DAILY@1000 [facility] Metformin HCl 500 mg 03/10/21 10:00 03/10/21 08:46 Metformin 500 Mg Tab PO Not Given DAILY@1000 [facility] Metoprolol Tartrate 50 mg 03/09/21 16:00 03/10/21 08:21 Metoprolol Tartrate 50 Mg Tab PO Not Given TID@1000,1600,2200 [facility] Nitroglycerin 0.4 mg 03/09/21 12:51 Nitroglycerin Sl Tabs 0.4 Mg Tab SUBLINGUAL Q5M PRN Chest Pain Spironolactone 25 mg 03/10/21 10:00 03/10/21 08:46 Spironolactone 25 Mg Tab PO Not Given DAILY@1000 [facility] Intake and Output 03/09/21 03/10/21 03/10/21 22:59 06:59 14:59 Intake Total 88.309 45.74 Output Total 400 650 Balance -311.691 -604.26 Intake: Intake, IV Titration 88.309 45.74 Amount Heparin Sod,Pork in 0.45% 88.309 45.74 NaCl 25,000 unit In 0.45 % NaCl 1 250ml.bag @ 12 UNITS/KG/HR 8.279 mls/hr IV .Q24H [facility] Rx#: [id number] Output: Urine 400 650 Straight 400 Other: # Voids 1 Weight 68.993 kg 03/09/21 11:14 03/09/21 11:14
[2021-03-10] MEDS ORDERED: ASPIRIN 325 MG TAB PO STA (08:53)
[2021-03-10] MEDS ORDERED: SODIUM CHLORIDE 0.9% 1,000 ML in EMPTY BAG 1 BAG IV ONE (08:53)
[2021-03-10] MEDS ORDERED: ATORVASTATIN 80 MG TAB PO STA (08:53)
[2021-03-10] MEDS ORDERED: NITROGLYCERIN SL TABS 0.4 MG TAB SUBLINGUAL PRN (08:53)
[2021-03-10] MEDS ORDERED: ALPRAZolam 0.25 MG TAB PO PRN (08:53)
[2021-03-10] MEDS ORDERED: ALPRAZolam 0.5 MG TAB PO PRN (08:53)
[2021-03-10] MEDS ORDERED: ASPIRIN 325 MG TAB PO SCH (09:00)
[2021-03-10 09:01] LABS: African American GFR (CKD) >90 (>60 ml/min/1.73 sqM); Albumin 3.9 g/dL (3.5-5.0); Anion Gap 10 mmol/L; Blood Urea Nitrogen 24 mg/dL (7-17); Calcium 8.8 mg/dL (8.4-10.2); Carbon Dioxide 23 mmol/L (22-30); Chloride 103 mmol/L (98-107); Glucose 138 mg/dL (74-99); Non-African American GFR(CKD) 78 (>60 ml/min/1.73 sqM); Phosphorus 3.1 mg/dL (2.5-4.5); Potassium 4.3 mmol/L (3.5-5.1); Sodium 136 mmol/L (137-145)
[2021-03-10] MEDS ORDERED: metFORMIN 500 MG TAB PO SCH (10:00)
[2021-03-10 10:04] LABS: Chol/HDL Ratio 2.5; LDL Cholesterol,Calculated 34.6 mg/dL (0.0-131.0); VLDL Calculation 34.4 mg/dL (5.00-40.00)
[2021-03-10] MEDS ORDERED: LIDOCAINE 1% INJ 10MG/ML (20 ML MDV) ONE (13:01)
[2021-03-10] MEDS ORDERED: VERAPAMIL 2.5 MG/ML 2 ML AMP ONE (13:02)
[2021-03-10] MEDS ORDERED: SODIUM CHLORIDE 0.9% 1,000 ML IV ONE (13:20)
[2021-03-10] MEDS ORDERED: fentaNYL (PF) 50 MCG/ML 2 ML AMP IV ONE (13:25)
[2021-03-10] MEDS: MIDAZOLAM 2 MG/2 ML VIAL IV ONE ×2 (13:27→13:38)
[2021-03-10] MEDS ORDERED: LIDOCAINE 1% INJ 10MG/ML (20 ML MDV) SQ ONE (13:29)
[2021-03-10] MEDS: VERAPAMIL SYRINGE (5 MG/10 ML) INTRAARTER ONE ×2 (13:31→13:40)
--- NOTE | 2021-03-10 13:38 | ECHOF ---
Referral Reason:re: NSTEMI MEASUREMENTS -------- HEIGHT: 170.2 cm WEIGHT: 68.9 kg BP: RVIDd: 1.5 cm (< 3.3) IVSd: 1.0 cm (0.6 - 1.1) LVIDd: 4.1 cm (3.9 - 5.3) LVPWd: 0.9 cm (0.6 - 1.1) IVSs: 1.3 cm LVIDs: 2.9 cm LVPWs: 1.8 cm LAESV Index (A-L): 26.37 ml/m Ao Diam: 2.7 cm (2.0 - 3.7) AV Cusp: 1.9 cm (1.5 - 2.6) LA Diam: 3.9 cm (2.7 - 3.8) MV EXCURSION: 16.659 mm (> 18.000) MV EF SLOPE: 135 mm/s (70 - 150) EPSS: 1.1 cm MV E Te: 1.50 m/s MV DecT: 200 ms MV A Te: 0.79 m/s MV E/A Ratio: 1.89 RAP: 5.00 mmHg RVSP: 26.04 mmHg FINDINGS -------- This was a technically difficult study with suboptimal views. The left ventricular size is normal. Left ventricular wall thickness is normal. Overall left vent ricular systolic function is mild-moderately impaired with, an EF between 40 - 45 %. Normal LAP Gra de 1 Diastolic Dysfunction. Anterseptal Hypokinesis The right ventricle is normal in size. The left atrial size is normal. Normal LA size by volume 22+/-6 ml/m2. The right atrial size is normal. Lumason used Aortic valve is trileaflet and is mildly thickened. The mitral valve is normal. The mitral valve leaflets are mildly thickened. Mild mitral regurgita tion is present. The tricuspid valve appears structurally normal. Mild tricuspid regurgitation present. Right vent ricular systolic pressure is normal at < 35 mmHg. There is no pulmonic regurgitation present. The aortic root size is normal. Normal inferior vena cava with normal inspiratory collapse consistent with estimated right atrial pre ssure of 5 mmHg. There is no pericardial effusion. CONCLUSIONS -------- 1. The left ventricular size is normal. 2. Left ventricular wall thickness is normal. 3. Overall left ventricular systolic function is mild-moderately impaired with, an EF between 40 - 45 %. 4. Normal LAP Grade 1 Diastolic Dysfunction. 5. Anterseptal Hypokinesis 6. Aortic valve is trileaflet and is mildly thickened. 7. The mitral valve leaflets are mildly thickened. 8. Mild mitral regurgitation is present. 9. Mild tricuspid regurgitation present. 10. There is no pericardial effusion. TEAR DOWN WORKER: Gege Mullen RDCS
[2021-03-10] MEDS ORDERED: IOPAMIDOL-370 125ML BTL INJ ONE (13:46)
[2021-03-10] MEDS ORDERED: RX INFO: IV CONTRAST WAS GIVEN 1 EACH MISC MISCELLANE PRN (13:56)
[2021-03-10] MEDS ORDERED: SODIUM CHLORIDE 0.9% 1,000 ML IV SCH (14:00)
[2021-03-10] MEDS: HEPARIN SOD,PORK IN 0.45% NACL 25,000 UNIT in 0.45% NACL 1 250ML.BAG IV SCH (14:35)
[2021-03-10] MEDS: CHOLECALCIFEROL 25 MCG (1000 IU) TABLET PO SCH (14:49)
[2021-03-10] MEDS: ISOSORBIDE MONONITRATE ER 30 MG TAB.ER.24H PO SCH (15:26)
--- NOTE | 2021-03-10 16:24 | CC ---
CARDIAC CATHETERIZATION REPORT Mrs. Pratt is a 75-year-old female with a known history of coronary artery disease status post myocardial infarction in December and percutaneous revascularization of her LAD and subsequently her RCA, who presented with a brief episode of chest discomfort and minimal troponin elevation. In view of that, recommendation was made regarding cardiac catheterization. The procedure as well as the risks and the complications were discussed with the patient who is in full understanding and agreement. 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 Using Xylocaine anesthesia and Seldinger technique, a 6-Polish sheath was introduced in the right radial artery. Selective right and left coronary angiography were performed using 5- Polish 3.5 bend right and left Ivon catheter. Multiple views of the coronary artery including hemiaxial views obtained. Following that, a 5-Polish tight pigtail catheter was introduced into the left ventricle and left ventricular end-diastolic pressure was calculated. Following that, catheter and sheath were removed. Hemostasis was obtained with deployment of TR band. There was no immediate complication. Patient is returned to room in stable condition. Of note, the patient received 3500 units of intravenous heparin as well as intra-arterial verapamil. FINDINGS: FLUOROSCOPY: There was calcification involving the coronary arteries. LEFT MAIN: This is a short size vessel, bifurcating into left circumflex, left anterior descending artery, left main artery has no evidence of high-grade stenosis. LEFT ANTERIOR DESCENDING ARTERY: This is a large-sized vessel reaching to the apex with a wraparound apex segment giving rise to a moderately sized diagonal branch. Left anterior descending artery stented segment proximal is patent. There is diffuse intimal disease throughout the LAD and the left circumflex with no evidence of focal stenosis. LEFT CIRCUMFLEX: This is a nondominant vessel giving rise to one obtuse marginal branch of moderate to large caliber. The left circumflex throughout its course has diffuse disease. There is in the distal obtuse marginal branch an area of haziness that could represent a ruptured plaque. The vessel beyond it is small in caliber. There is an area of stenosis that is about 80%. RIGHT CORONARY ARTERY: This is a dominant vessel bifurcating distally in PDA and posterolateral segment and branches. The right coronary artery stented segment in the mid and distal are patent. There is diffuse disease in the PLV and PDA. The vessels are small in caliber. LEFT VENTRICULOGRAM: Left ventriculogram was not performed. HEMODYNAMICS: There was no gradient across the aortic valve. The left ventricular end-diastolic pressure was 24-26 mmHg. CONCLUSION: 1. Patent stent in the LAD and the right coronary artery. 2. Diffuse disease in the LAD. 3. Diffuse disease in left circumflex with area of haziness in the distal obtuse marginal branch that could represent a ruptured plaque. 4. Diffuse intimal disease in a small PDA and PLV. 5. Elevated left ventricular end-diastolic pressure. RECOMMENDATIONS: In view of findings and anatomy, I recommend continue medical therapy with aggressive coronary risk modifications that have been initiated. Those findings and recommendations were discussed with the patient and her family and they are in full understanding and agreement. MMODL / IJN: [id number] /
--- NOTE | 2021-03-10 16:24 | CC ---
CARDIAC CATHETERIZATION REPORT DATE OF SERVICE: 03/10/[address] López: I had the pleasure of performing cardiac catheterization on Mrs. Pratt at [facility] on March 10 and a full copy of procedure note will be forwarded to you. In brief, she was found to have patent stent of the LAD and the right coronary artery with diffuse intimal disease and possible ruptured plaque in the small segment of the distal obtuse marginal branch. At this time, I will maximize her medical therapy and depending on her progress, further recommendations will be made. Thank you again for allowing me to participate in her care. Please feel free to call for any questions. Sincerely yours, MMODL / IJN: [id number] /
--- NOTE | 2021-03-10 19:22 | P.HPIM ---
History of Present Illness H&P Date: 03/09/21 Chief Complaint: Chest pain Ava Pratt, is a 75 year old female who presented to [facility] emergency room with a chief complaint of chest pain, patient stated that she woke up at 6 AM with severe chest pain that she rates at 10 out of 10 there was no associated nausea or vomiting diaphoresis or shortness of breath there was no radiation of the pain to the jaw or to the arms. She was evaluated in the emergency room vital examination on presentation r evealed a temperature of 98.1 pulse 80 respirations 16 blood pressure 122/50 pulse ox 98% on room air. Laboratory data revealed a white blood count of 16.3 hemoglobin 10.8 platelet count 365 sodium 134 potassium 5.4 chloride 106 BUN 23 creatinine 0.72 Testing in the emergency room patient had a chest x-ray in the emergency room that revealed new partially consult date if opacity on the right lung base suspicious for pneumonia, EKG revealed normal sinus rhythm, with ST and T-wave abnormalities in the lateral leads Patient was admitted to medical floor for further evaluation and treatment. Cardiology consult was requested. Patient has a known history of coronary artery disease she had recent cardiac catheterization with stent placement. Past Medical History Past Medical History: Atrial Fibrillation, Diabetes Mellitus, Fibromyalgia, Myocardial Infarction ([place]) Additional Past Medical History / Comment(s): Stent placed x2 in Feb 12, 2021 Last Myocardial Infarction Date:: 01/04/21 History of Any Multi-Drug Resistant Organisms: None Reported Past Surgical History: Hysterectomy Additional Past Surgical History / Comment(s): Hysterectomy 1986 Past Anesthesia/Blood Transfusion Reactions: No Reported Reaction Additional Past Anesthesia/Blood Transfusion Reaction / Comment(s): "wake up from anesthesia very quickly" Past Psychological History: No Psychological Hx Reported Smoking Status: Never smoker Past Alcohol Use History: None Reported Past Drug Use History: None Reported - Past Family History Mother Family Medical History: Cancer Father Family Medical History: Cancer Medications and Allergies Home Medications Medication Instructions Recorded Confirmed Type ALPRAZolam [Xanax] 1 mg PO BID PRN 01/04/21 03/09/21 History Amitriptyline HCl 50 mg PO HS@2200 01/04/21 03/09/21 History HYDROcodone/APAP 10-325MG [[place] 1 - 2 tab PO Q8H PRN 01/04/21 03/09/21 History 10-325] metFORMIN HCL [Glucophage] 500 mg PO DAILY@1000 01/04/21 03/09/21 History Amiodarone [Cordarone] 200 mg PO BID@1000,219902/07/21 03/09/21 History Ascorbic Acid [Vitamin C] 500 mg PO DAILY@1000 02/07/21 03/09/21 History Clopidogrel [Plavix] 75 mg PO DAILY@219902/07/21 03/09/21 History Apixaban [Eliquis] 5 mg PO BID@1000,219903/09/21 03/09/21 History Cholecalciferol [Vitamin D3 (25 50 mcg PO DAILY@1400 03/09/21 03/09/21 History Mcg = 1000 Iu)] Ezetimibe [Zetia] 10 mg PO DAILY@1000 03/09/21 03/09/21 History Metoprolol Tartrate [Lopressor] 50 mg PO TID@1000,1600,219903/09/21 03/09/21 History Spironolactone [Aldactone] 25 mg PO DAILY@99903/09/21 03/09/21 History lisinopriL [Zestril] 5 mg PO DAILY@1000 03/09/21 03/09/21 History Allergies Allergy/AdvReac Type Severity Reaction Status Date / Time ticagrelor [From Brilinta] Allergy Dyspnea Verified 03/09/21 12:51 zolpidem [From Ambien] Allergy "opposite Verified 03/09/21 12:51 effect" aspirin AdvReac Abdominal Verified 03/09/21 12:51 Pain atorvastatin [From Lipitor] AdvReac Abdominal Verified 03/09/21 12:51 Pain carisoprodol [From Soma] AdvReac "not Verified 03/09/21 12:51 effective" cyclobenzaprine AdvReac "not Verified 03/09/21 12:51 [From Flexeril] effective" gabapentin [From Neurontin] AdvReac "not Verified 03/09/21 12:51 effective" NSAIDS (Non-Steroidal AdvReac Abdominal Verified 03/09/21 12:51 Anti-Inflamma Pain sertraline [From Zoloft] AdvReac "not Verified 03/09/21 12:51 effective" Vgzapaq-Zzn-Rhs Reductase AdvReac Abdominal Verified 03/09/21 12:51 Inhibitor Pain tramadol AdvReac "not Verified 03/09/21 12:51 effective" Physical Exam Vitals: Vital Signs Temp Pulse Pulse Resp BP Pulse Ox 03/09/21 12:54 65 16 94/40 97 03/09/21 11:29 71 18 110/40 99 03/09/21 10:13 77 03/09/21 10:05 98.1 F 80 16 122/50 98 Intake and Output 03/08/21 03/09/21 03/09/21 22:59 06:59 14:59 Other: Weight 68.993 kg In general patient is alert and oriented x 3 in no distress HEENT head normocephalic and atraumatic Neck is supple no JVD no goiter no lymphadenopathy no carotid bruit Chest examination is clear to auscultation no crackles no wheezing Cardiac exam reveals regular heart sounds S1 and S2 no gallops no murmurs Abdomen is soft nontender no organomegaly with normal bowel sounds Extremity exam reveals no edema no cyanosis or clubbing Neurological examination reveals no gross focal deficits Results CBC & Chem 7: 03/10/21 08:38 03/10/21 08:38 Labs: Abnormal Lab Results - Last 24 Hours (Table) 03/09/21 03/09/21 03/09/21 Range/Units 11:14 11:14 11:14 WBC 16.3 H (3.8-10.6) k/uL RBC 3.66 L (3.80-5.40) m/uL Hgb 10.8 L (11.4-16.0) gm/dL Neutrophils # 15.2 H (1.3-7.7) k/uL Lymphocytes # 0.6 L (1.0-4.8) k/uL PT 12.1 H (9.0-12.0) sec INR 1.2 H (<1.2) Sodium 134 L (137-145) mmol/L Potassium 5.4 H (3.5-5.1) mmol/L Carbon Dioxide 14 L (22-30) mmol/L BUN 23 H (7-17) mg/dL Glucose 186 H (74-99) mg/dL Magnesium 1.5 L (1.6-2.3) mg/dL Assessment and Plan Plan: Episode of chest pain Known history of coronary artery disease with recent cardiac catheterization and stent placement Abnormal chest x-ray revealing evidence of basilar infiltrate suggestive for her pneumonia, at this time will start with IV antibiotics and recheck chest x-ray PA and lateral in the morning Underlying history of hypertension Underlying history of hyperlipidemia with known history of statin intolerance Underlying history of fibromyalgia with chronic pain syndrome Underlying history of [id number] diabetes mellitus Patient was admitted to telemetry floor Home medications reviewed and reordered Cardiology consultation requested Will follow closely
[2021-03-10] MEDS ORDERED: HYDROmorphone 0.5 MG/0.5 ML SYRINGE IVP PRN (19:25)
--- NOTE | 2021-03-10 19:25 | P.PN ---
Subjective Progress Note Date: 03/10/21 Ava Pratt, is a 75 year old female who presented to [facility] emergency room with a chief complaint of chest pain, patient stated that she woke up at 6 AM with severe chest pain that she rates at 10 out of 10 there was no associated nausea or vomiting diaphoresis or shortness of breath there was no radiation of the pain to the jaw or to the arms. She was evaluated in the emergency room vital examination on presentation revealed a temperature of 98.1 pulse 80 respirations 16 blood pressure 122/50 pulse ox 98% on room air. Laboratory data revealed a white blood count of 16.3 hemoglobin 10.8 platelet count 365 sodium 134 potassium 5.4 chloride 106 BUN 23 creatinine 0.72 Testing in the emergency room patient had a chest x-ray in the emergency room that revealed new partially consult date if opacity on the right lung base suspicious for pneumonia, EKG revealed normal sinus rhythm, with ST and T-wave abnormalities in the lateral leads Patient was admitted to medical floor for further evaluation and treatment. Cardiology consult was requested. Patient has a known history of coronary artery disease she had recent cardiac catheterization with stent placement. On 03/10/2021 patient was seen and examined on the telemetry floor she is alert and oriented 3 in no apparent distress, she underwent cardiac catheterization this morning, the recent 2 stents that she had put in the last 2 months are patentm patient has small vessel disease that is not amenable to further ang ioplasty or stent placementm continued maximum medical therapy was recommended by cardiology, at this time patient is complaining of generalized body ache, but denies any chest pain shortness of breath palpitation or dizziness. Objective - Vital Signs Vital signs: Vital Signs Temp 98 F 03/10/21 14:11 Pulse 89 03/10/21 14:11 Resp 16 03/10/21 14:11 BP 97/61 03/10/21 14:11 Pulse Ox 100 03/10/21 14:11 Intake & Output 03/09/21 03/10/21 03/10/21 18:59 06:59 18:59 Intake Total 134.049 134.563 Output Total 400 650 500 Balance -400 -515.951 -365.437 Weight 68.993 kg Intake: IV 100 Intake, IV Titration 134.049 34.563 Amount Heparin Sod,Pork in 0.45% 134.049 34.563 NaCl 25,000 unit In 0.45 % NaCl 1 250ml.bag @ 12 UNITS/KG/HR 8.279 mls/hr IV .Q24H [facility] Rx#: [id number] Output: Urine 400 650 500 Straight 400 500 Other: # Voids 1 - Exam In general patient is alert and oriented x 3 in no distress HEENT head normocephalic and atraumatic Neck is supple no JVD no goiter no lymphadenopathy no carotid bruit Chest examination is clear to auscultation no crackles no wheezing Cardiac exam reveals regular heart sounds S1 and S2 no gallops no murmurs Abdomen is soft nontender no organomegaly with normal bowel sounds Extremity exam reveals no edema no cyanosis or clubbing Neurological examination reveals no gross focal deficits - Labs CBC & Chem 7: 03/10/21 08:38 03/10/21 08:38 Labs: Abnormal Lab Results - Last 24 Hours (Table) 03/09/21 03/09/21 03/09/21 Range/Units 14:20 18:14 18:32 WBC (3.8-10.6) k/uL RBC (3.80-5.40) m/uL Hgb (11.4-16.0) gm/dL Hct (34.0-46.0) % Neutrophils # (1.3-7.7) k/uL APTT (22.0-30.0) sec Sodium (137-145) mmol/L BUN (7-17) mg/dL Glucose (74-99) mg/dL Troponin I 0.122 H* 0.181 H* (0.000-0.034) ng/mL Triglycerides (0.0-149.0) mg/dL Urine Appearance (Clear) Urine Protein (Negative) Urine Ketones 1+ H (Negative) Urine Blood (Negative) Ur Leukocyte Esterase (Negative) Urine RBC (0-5) /hpf Urine WBC (0-5) /hpf Urine Bacteria (None) /hpf 03/09/21 03/10/21 03/10/21 Range/Units 18:32 05:04 05:04 WBC (3.8-10.6) k/uL RBC (3.80-5.40) m/uL Hgb (11.4-16.0) gm/dL Hct (34.0-46.0) % Neutrophils # (1.3-7.7) k/uL APTT 159.5 H* 46.7 H (22.0-30.0) sec Sodium (137-145) mmol/L BUN (7-17) mg/dL Glucose (74-99) mg/dL Troponin I (0.000-0.034) ng/mL Triglycerides 172.0 H (0.0-149.0) mg/dL Urine Appearance (Clear) Urine Protein (Negative) Urine Ketones (Negative) Urine Blood (Negative) Ur Leukocyte Esterase (Negative) Urine RBC (0-5) /hpf Urine WBC (0-5) /hpf Urine Bacteria (None) /hpf 03/10/21 03/10/21 03/10/21 Range/Units 05:48 08:38 08:38 WBC 12.4 H (3.8-10.6) k/uL RBC 3.31 L (3.80-5.40) m/uL Hgb 9.8 L (11.4-16.0) gm/dL Hct 31.7 L (34.0-46.0) % Neutrophils # 9.7 H (1.3-7.7) k/uL APTT (22.0-30.0) sec Sodium 136 L (137-145) mmol/L BUN 24 H (7-17) mg/dL Glucose 138 H (74-99) mg/dL Troponin I (0.000-0.034) ng/mL Triglycerides (0.0-149.0) mg/dL Urine Appearance Turbid H (Clear) Urine Protein 1+ H (Negative) Urine Ketones (Negative) Urine Blood Large H (Negative) Ur Leukocyte Esterase Small H (Negative) Urine RBC >182 H (0-5) /hpf Urine WBC 24 H (0-5) /hpf Urine Bacteria Occasional H (None) /hpf 03/10/21 Range/Units 08:38 WBC (3.8-10.6) k/uL RBC (3.80-5.40) m/uL Hgb (11.4-16.0) gm/dL Hct (34.0-46.0) % Neutrophils # (1.3-7.7) k/uL APTT (22.0-30.0) sec Sodium (137-145) mmol/L BUN (7-17) mg/dL Glucose (74-99) mg/dL Troponin I 0.135 H* (0.000-0.034) ng/mL Triglycerides (0.0-149.0) mg/dL Urine Appearance (Clear) Urine Protein (Negative) Urine Ketones (Negative) Urine Blood (Negative) Ur Leukocyte Esterase (Negative) Urine RBC (0-5) /hpf Urine WBC (0-5) /hpf Urine Bacteria (None) /hpf Assessment and Plan Plan: Episode of chest pain Known history of coronary artery disease with recent cardiac catheterization and stent placement Abnormal chest x-ray revealing evidence of basilar infiltrate suggestive for her pneumonia, at this time will start with IV antibiotics and recheck chest x-ray PA and lateral in the morning Underlying history of hypertension Underlying history of hyperlipidemia with known history of statin intolerance Underlying history of fibromyalgia with chronic pain syndrome Underlying history of [id number] diabetes mellitus Patient was admitted to telemetry floor Home medications reviewed and reordered Cardiology consultation requested Cardiac catheterization done this morning the results as above, patient requesting increase in pain medications Will follow closely
[2021-03-10] MEDS: ALPRAZolam 1 MG TAB PO PRN (20:18)
[2021-03-10] MEDS: CLOPIDOGREL 75 MG TAB PO SCH (20:20)
[2021-03-10] MEDS: AMITRIPTYLINE HCL 50 MG TAB PO SCH (20:21)
[2021-03-11] MEDS: ALPRAZolam 1 MG TAB PO PRN ×2 (01:59→09:37)
[2021-03-11] MEDS: HYDROcodone/APAP 10-325MG 1 EACH TAB PO PRN ×2 (01:59→09:37)
[2021-03-11 07:00] LABS: African American GFR (CKD) >90 (>60 ml/min/1.73 sqM); Anion Gap 7 mmol/L; Blood Urea Nitrogen 19 mg/dL (7-17); Calcium 8.6 mg/dL (8.4-10.2); Carbon Dioxide 22 mmol/L (22-30); Chloride 108 mmol/L (98-107); Glucose 132 mg/dL (74-99); Non-African American GFR(CKD) 89 (>60 ml/min/1.73 sqM); Potassium 4.4 mmol/L (3.5-5.1); Sodium 137 mmol/L (137-145)
[2021-03-11] MEDS ORDERED: HEPARIN SODIUM,PORCINE 10,000 UNIT in SODIUM CHLORIDE 0.9% 1,000 ML IRRIGATION PRN (07:00)
[2021-03-11] MEDS ORDERED: HEPARIN SODIUM,PORCINE 2,500 UNIT in SODIUM CHLORIDE 0.9% 250 ML IRRIGATION PRN (07:00)
[2021-03-11] MEDS ORDERED: AMIODARONE 200 MG TAB PO SCH (09:00)
[2021-03-11] MEDS ORDERED: ASPIRIN 81 MG PO SCH (09:00)
[2021-03-11] MEDS: ASCORBIC ACID 500 MG TAB PO SCH (09:24)
[2021-03-11] MEDS: EZETIMIBE 10 MG TAB PO SCH (09:24)
[2021-03-11] MEDS: APIXABAN 2.5 MG TABLET PO SCH ×2 (09:25→09:27)
[2021-03-11] MEDS: CHOLECALCIFEROL 25 MCG (1000 IU) TABLET PO SCH (09:25)
[2021-03-11] MEDS: ISOSORBIDE MONONITRATE ER 30 MG TAB.ER.24H PO SCH (09:25)
[2021-03-11] MEDS: SPIRONOLACTONE 25 MG TAB PO SCH (09:28)
[2021-03-11] MEDS: lisinopriL 5 MG TAB PO SCH (09:38)
[2021-03-11] MEDS: METOPROLOL TARTRATE 50 MG TAB PO SCH (09:38)
--- NOTE | 2021-03-11 11:14 | P.PN ---
Subjective Patient is a pleasant 75-year-old female with history of coronary artery disease status post STEMI December 2020, gallstones, cardiomyopathy, hypertension, hyperlipidemia, statin intolerance, diabetes mellitus, fibromyalgia, paroxysmal atrial fibrillation who presents secondary to episode of chest pain. She admits that initially in December as well as with her repeat stenting to beginning of February her pain felt somewhat different however she had around 2 hours of chest discomfort which did not go away and therefore called EMS. On admission she was found to have leukocytosis with blood cell 16.3, hemoglobin 10.8, platelets 365, sodium 134, potassium 5.4, carbon dioxide 14, creatinine 0.7, magnesium 1.5, troponin 0.017, 0.12, 0.18. Chest x-ray was concerning for a right sided pneumonia. EKG shows normal sinus rhythm, left axis deviation, ST depressions in the inferolateral leads, T-wave inversion in aVL. Concern for NSTEMI and cardiac catheterization was recommended Patient underwent cardiac catheterization with Dr. Mariano 03/10/21 which revealed patent stent in LAD and RCA, diffuse disease in LAD, diffuse disease in left circumflex with area of haziness and the soft tissues marginal branch that could represent a ruptured plaque, diffuse intimal disease in a small PDA and PLV. LVEDP 24-26mmHg. per echocardiogram revealed an EF of 4045 percent, anteroseptal hypokinesis, mild mitral regurgitation, mild tricuspid regurgitation 03/11/21: Patient seen and examined at bedside, no acute distress. She denies any chest pain, shortness of breath, lightheadedness. She is unable empty her bladder and is requiring straight cathterization. She states she is feeling well and wishes to go home. Laboratory data reviewed sodium 137, potassium 4.4, BUN 19, serum creatinine 0.6. She's currently maintained on Eliquis 2.5 mg twice a day, aspirin 81 mg daily, atorvastatin, Plavix 75 mg daily, Zetia 10 mg daily, Imdur 30 mg daily, Lopressor 50 mg twice a day, spironolactone 25 mg daily. PHYSICAL EXAMINATION Vital signs reviewed. CONSTITUTIONAL: No apparent distress. HEENT: Neck Supple. No JVD. CHEST EXAMINATION: Lungs are clear to auscultation. HEART EXAMINATION: Regular rate and rhythm. S1, S2 heard. No murmurs, gallops or rub. ABDOMEN: Soft, nontender. Positive bowel sounds. EXTREMITIES: 2+ peripheral pulses, no lower extremity edema SKIN: Right radial cath site clean, no hematoma 2+ pulses NEUROLOGIC EXAMINATION: Patient is awake, alert and oriented x3. ASSESSMENT Non-STEMI Coronary artery disease status post PCI of LAD and RCA Hypertension Hyperlipidemia Leukocytosis, acidosis, chest x-ray concerning for pneumonia however no clinical symptoms, possible urinary tract infection Paroxysmal atrial fibrillation currently sinus rhythm on Eliquis Ischemic cardiomyopathy ejection fraction 40-45% on recent echo Diabetes mellitus type 2 Anemia Urinary retention PLAN -From a cardiology perspective, patient is stable, ok to discharge per primary team. Recommend continuing home cardiac medications and follow up with Dr. Mariano in the office in 1 week. Objective - Vital Signs Vital signs: Vital Signs Temp 97.7 F 03/11/21 07:00 Pulse 106 H 03/11/21 07:00 Resp 18 03/11/21 07:00 BP 107/61 03/11/21 07:00 Pulse Ox 91 L 03/11/21 09:01 Intake & Output 03/10/21 03/11/21 03/11/21 18:59 06:59 18:59 Intake Total 134.563 350 Output Total 500 650 Balance -365.437 -300 Intake: IV 100 Intake, IV Titration 34.563 Amount Heparin Sod,Pork in 0.45% 34.563 NaCl 25,000 unit In 0.45 % NaCl 1 250ml.bag @ 12 UNITS/KG/HR 8.279 mls/hr IV .Q24H [facility] Rx#: [id number] Oral 350 Output: Urine 500 650 Straight 500 Other: # Voids 1 0 - Labs CBC & Chem 7: 03/10/21 08:38 03/11/21 06:21 Labs: Abnormal Lab Results - Last 24 Hours (Table) 03/11/21 Range/Units 06:21 Chloride 108 H (98-107) mmol/L BUN 19 H (7-17) mg/dL Glucose 132 H (74-99) mg/dL
--- NOTE | 2021-03-11 13:07 | XR ---
EXAMINATION TYPE: XR chest 2V DATE OF EXAM: 03/11/2021 COMPARISON: Chest x-ray 03/09/2021 HISTORY: Abnormal chest x-ray, follow-up infiltrate TECHNIQUE: Frontal and lateral views of the chest are obtained. FINDINGS: Patchy bilateral airspace disease and prominence of interstitium is again noted. Cardiac m ediastinal silhouette is stable. This dominant pneumothorax. Lung volumes are low. Patient is rotated . There is blunting the posterior costophrenic angles. IMPRESSION: Correlate for possible congestive heart failure with associated effusions, pneumonia not excluded
[2021-03-11 15:13] VITALS: BP 82/43; PULSE 93; RESP 16; TEMP 98.3
[2021-03-11] MEDS ORDERED: TAMSULOSIN 0.4 MG CAP.ER.24H PO SCH (16:45)
[2021-03-11] MEDS ORDERED: APIXABAN 5 MG TAB PO SCH (21:00)
== END 2021-03-11 17:04 | disposition home health service (06) | DRG 280 ==
LOC: EC 09:57 → 6NMEDSUR 13:02 → OBSVTOIN 03-10 15:57
PROVIDERS: ADMIT Internal Medicine; ATTEND Internal Medicine
PROC: B2111ZZ Fluoroscopy of Multiple Coronary Arteries using Low Osmolar Contrast (ICD-10-PCS; 2021-03-10)
PROC: 4A023N7 Measurement of Cardiac Sampling and Pressure, Left Heart, Percutaneous Approach (ICD-10-PCS; principal; 2021-03-10 12:45)
DX: I21.4 Non-ST elevation (NSTEMI) myocardial infarction (principal); J18.9 Pneumonia, unspecified organism; E87.2 Acidosis; Q25.0 Patent ductus arteriosus; D64.9 Anemia, unspecified; E11.9 Type 2 diabetes mellitus without complications; E78.5 Hyperlipidemia, unspecified; G89.4 Chronic pain syndrome; I10 Essential (primary) hypertension; I25.10 Atherosclerotic heart disease of native coronary artery without angina pectoris; I25.2 Old myocardial infarction; I25.5 Ischemic cardiomyopathy; I48.0 Paroxysmal atrial fibrillation; Z20.822 Contact with and (suspected) exposure to COVID-19; M79.7 Fibromyalgia; Z79.01 Long term (current) use of anticoagulants; Z79.02 Long term (current) use of antithrombotics/antiplatelets; Z79.82 Long term (current) use of aspirin; Z79.84 Long term (current) use of oral hypoglycemic drugs; Z79.899 Other long term (current) drug therapy; Z90.710 Acquired absence of both cervix and uterus; Z95.5 Presence of coronary angioplasty implant and graft; R33.9 Retention of urine, unspecified
CPT/HCPCS: 36415; 71046; 80048; 80053; 80061; 80069; 81001; 81003; 83690; 83735; 84484; 85025; 85610; 85730; 87086; 87635; 93005; 93306; 93458; 94760; 96374; 99291

== ENCOUNTER 2021-03-14 04:56 | Emergency (ER) | payer MEDICARE ==
[2021-03-14 05:07] VITALS: TEMP 98
--- NOTE | 2021-03-14 05:22 | ED ---
Female Urogenital HPI - General Chief complaint: Urogenital Stated complaint: Trouble urinating Time Seen by Provider: 03/14/21 04:58 Source: patient, family Mode of arrival: wheelchair Limitations: no limitations - Related Data Home Medications Medication Instructions Recorded Confirmed ALPRAZolam [Xanax] 1 mg PO BID PRN 01/04/21 03/09/21 Amitriptyline HCl 50 mg PO HS@219901/04/21 03/09/21 HYDROcodone/APAP 10-325MG [[place] 1 - 2 tab PO Q8H PRN 01/04/21 03/09/21 10-325] metFORMIN HCL [Glucophage] 500 mg PO DAILY@1000 01/04/21 03/09/21 Amiodarone [Cordarone] 200 mg PO BID@1000,219902/07/21 03/09/21 Ascorbic Acid [Vitamin C] 500 mg PO DAILY@1000 02/07/21 03/09/21 Clopidogrel [Plavix] 75 mg PO DAILY@219902/07/21 03/09/21 Apixaban [Eliquis] 5 mg PO BID@1000,219903/09/21 03/09/21 Cholecalciferol [Vitamin D3 (25 50 mcg PO DAILY@1400 03/09/21 03/09/21 Mcg = 1000 Iu)] Ezetimibe [Zetia] 10 mg PO DAILY@1000 03/09/21 03/09/21 Metoprolol Tartrate [Lopressor] 50 mg PO TID@1000,1600,0 03/09/21 03/09/21 Spironolactone [Aldactone] 25 mg PO DAILY@1000 03/09/21 03/09/21 lisinopriL [Zestril] 5 mg PO DAILY@1000 03/09/21 03/09/21 Previous Rx's Medication Instructions Recorded Cefuroxime Axetil [Ceftin] 500 mg PO BID 20 Days #10 tab 03/11/21 Isosorbide Mononitrate ER [Imdur] 30 mg PO DAILY tablet 03/11/21 Tamsulosin [Flomax] 0.4 mg PO [id number] 03/11/21 Allergies Allergy/AdvReac Type Severity Reaction Status Date / Time ticagrelor [From Brilinta] Allergy Dyspnea Verified 03/14/21 05:07 zolpidem [From Ambien] Allergy "opposite Verified 03/14/21 05:07 effect" aspirin AdvReac Abdominal Verified 03/14/21 05:07 Pain atorvastatin [From Lipitor] AdvReac Abdominal Verified 03/14/21 05:07 Pain carisoprodol [From Soma] AdvReac "not Verified 03/14/21 05:07 effective" cyclobenzaprine AdvReac "not Verified 03/14/21 05:07 [From Flexeril] effective" gabapentin [From Neurontin] AdvReac "not Verified 03/14/21 05:07 effective" NSAIDS (Non-Steroidal AdvReac Abdominal Verified 03/14/21 05:07 Anti-Inflamma Pain sertraline [From Zoloft] AdvReac "not Verified 03/14/21 05:07 effective" Leasqqj-Ael-Cqv Reductase AdvReac Abdominal Verified 03/14/21 05:07 Inhibitor Pain tramadol AdvReac "not Verified 03/14/21 05:07 effective" Review of Systems ROS Statement: Those systems with pertinent positive or pertinent negative responses have been documented in the HPI. ROS Other: All systems not noted in ROS Statement are negative. Past Medical History Past Medical History: Atrial Fibrillation, Diabetes Mellitus, Fibromyalgia, Myocardial Infarction ([place]) Additional Past Medical History / Comment(s): Stent placed x2 in Feb 12, 2021 Last Myocardial Infarction Date:: 01/04/21 History of Any Multi-Drug Resistant Organisms: None Reported Past Surgical History: Hysterectomy Additional Past Surgical History / Comment(s): Hysterectomy 1986, radial cath 03/10 Past Anesthesia/Blood Transfusion Reactions: No Reported Reaction Additional Past Anesthesia/Blood Transfusion Reaction / Comment(s): "wake up from anesthesia very quickly" Past Psychological History: No Psychological Hx Reported Smoking Status: Never smoker Past Alcohol Use History: None Reported Past Drug Use History: None Reported - Past Family History Mother Family Medical History: Cancer Father Family Medical History: Cancer General Exam Limitations: no limitations Course Vital Signs 03/14/21 05:00 Temperature 98 F Pulse Rate 80 Respiratory 18 Rate Blood Pressure 112/43 O2 Sat by Pulse 99 Oximetry Medical Decision Making - Lab Data Lab Results 03/14/21 Range/Units 05:32 Urine Color Yellow Urine Appearance Clear (Clear) Urine pH 5.5 (5.0-8.0) Ur Specific [place] 1.028 (1.001-1.035) Urine Protein Trace H (Negative) Urine Glucose (UA) Negative (Negative) Urine Ketones Trace H (Negative) Urine Blood Negative (Negative) Urine Nitrite Negative (Negative) Urine Bilirubin Negative (Negative) Urine Urobilinogen 2.0 (<2.0) mg/dL Ur Leukocyte Esterase Negative (Negative) Disposition Clinical Impression: Urinary retention Disposition: HOME SELF-CARE Condition: Good Instructions (If sedation given, give patient instructions): Acute Urinary Retention in Women (ED) Is patient prescribed a controlled substance at d/c from ED?: No Referrals: Stacie López MD [Primary Care Provider] - 1-2 days
[2021-03-14 05:52] LABS: Appearance,Urine Clear (Clear); Bilirubin,Urine Negative (Negative); Blood,Urine Negative (Negative); Color,Urine Yellow; Glucose,Urine (UA) Negative (Negative); Ketones,Urine Trace (Negative); Leukocyte Esterase,Urine Negative (Negative); Nitrite,Urine Negative (Negative); PH, Urine 5.5 (5.0-8.0); Protein,Urine Trace (Negative); Specific Gravity,Urine 1.028 (1.001-1.035)
[2021-03-14 06:41] VITALS: BP 94/54; PULSE 79; RESP 16
== END 2021-03-14 06:41 | disposition home or self-care (01) ==
LOC: EC 04:56
DX: R33.9 Retention of urine, unspecified (principal); I48.91 Unspecified atrial fibrillation; E11.9 Type 2 diabetes mellitus without complications; I25.2 Old myocardial infarction; Z79.84 Long term (current) use of oral hypoglycemic drugs; Z79.02 Long term (current) use of antithrombotics/antiplatelets; Z79.01 Long term (current) use of anticoagulants; Z88.1 Allergy status to other antibiotic agents; Z88.5 Allergy status to narcotic agent; Z90.710 Acquired absence of both cervix and uterus
CPT/HCPCS: 81003; 99283

== ENCOUNTER 2021-04-03 15:58 | Inpatient (IN) | payer MEDICARE ==
[2021-04-03] MEDS ORDERED: SODIUM CHLORIDE 0.9% 1,000 ML IV STA (16:39)
[2021-04-03 17:13] LABS: Basophils % (A) 0 %; Eosinophils % (A) 0 %; HCT 36.6 % (34.0-46.0); HGB 10.9 gm/dL (11.4-16.0); Hypochromasia Marked; Lymphocytes # (A) 0.6 k/uL (1.0-4.8); Lymphocytes % (A) 3 %; MCH 28.6 pg (25.0-35.0); MCHC 29.9 g/dL (31.0-37.0); MCV 95.7 fL (80.0-100.0); Mean Platelet Volume 8.3; Monocytes # (A) 0.4 k/uL (0-1.0); Monocytes % (A) 2 %; Neutrophils # (A) 17.8 k/uL (1.3-7.7); Neutrophils % (A) 94 %; Platelet Count 498 k/uL (150-450); RBC 3.83 m/uL (3.80-5.40); RDW 14.9 % (11.5-15.5); WBC 18.9 k/uL (3.8-10.6)
[2021-04-03] MEDS ORDERED: cefTRIAXone IN SWFI 1,000 MG/10 ML SYRINGE IVP STA (17:14)
[2021-04-03] MEDS ORDERED: SODIUM CHLORIDE 0.9% 1,000 ML IV SCH (17:15)
[2021-04-03 17:26] LABS: ALT 18 U/L (4-34); AST 48 U/L (14-36); Acetaminophen <10.0 ug/mL; African American GFR (CKD) 65 (>60 ml/min/1.73 sqM); Albumin 3.8 g/dL (3.5-5.0); Alkaline Phosphatase 86 U/L (38-126); Anion Gap 17 mmol/L; Blood Urea Nitrogen 34 mg/dL (7-17); Calcium 9.1 mg/dL (8.4-10.2); Carbon Dioxide 16 mmol/L (22-30); Chloride 104 mmol/L (98-107); Glucose 288 mg/dL (74-99); Magnesium 1.9 mg/dL (1.6-2.3); Non-African American GFR(CKD) 57 (>60 ml/min/1.73 sqM); Phosphorus 4.4 mg/dL (2.5-4.5); Sodium 137 mmol/L (137-145); Total Protein 6.7 g/dL (6.3-8.2)
[2021-04-03 17:29] LABS: INR 1.1 (<1.2); Partial Thromboplastin Time 27.7 sec (22.0-30.0); Prothrombin Time 11.4 sec (9.0-12.0)
--- NOTE | 2021-04-03 17:50 | CT ---
EXAMINATION TYPE: CT brain onofre callahan DATE OF EXAM: 04/03/2021 COMPARISON: None HISTORY: trauma and pain CT DLP: 1168.2 mGycm Automated exposure control for dose reduction was used. TECHNIQUE: CT scan of the head and cervical spine are performed without contrast. FINDINGS: There is no acute intracranial hemorrhage, mass effect, or midline shift identified. The ventricles and sulci are within normal limits in size. The globes are intact and the visualized sin uses are clear. Cortical atrophy is noted. Periventricular white matter shows patchy low attenuation. Cervical spine is visualized in its entirety from C1 through upper thoracic levels and demonstrates s atisfactory alignment without evidence of acute fracture or dislocation. Spondylosis is present at mu ltiple levels, loss of disc height greatest at C6-7 Prevertebral soft tissue appears within normal l imits. The C1-C2 articulation is unremarkable. Lung apices show extensive bilateral airspace diseas e IMPRESSION: 1. There is no acute fracture or dislocation evident in the cervical spine. 2. No acute intracranial hemorrhage, mass effect, or midline shift is seen.
--- NOTE | 2021-04-03 17:52 | XR ---
AP pelvis HISTORY: Trauma and pain Single frontal view the pelvis Bone mineralization, joint spaces and alignment are maintained. There are vascular calcifications wit hin the pelvis. IMPRESSION: No acute fracture or dislocation.
--- NOTE | 2021-04-03 17:53 | ED ---
General Adult HPI - General Chief complaint: Fall Stated complaint: fall Time Seen by Provider: 04/03/21 16:33 Source: patient, EMS, RN notes reviewed, old records reviewed Mode of arrival: EMS Limitations: no limitations - History of Present Illness Initial comments: 75-year-old female presenting from home with altered mental status, fall, unknown down time. She was slurred speech. She is initially hypoxic, hypothermic and hypotensive. she had spoken to family late yesterday. She was brought by EMS, she was accompanied by a bottle of Aneta, amitriptyline and Xanax. She denies taking too much of these medications. - Related Data Home Medications Medication Instructions Recorded Confirmed ALPRAZolam [Xanax] 1 mg PO BID PRN 01/04/21 04/03/21 Amitriptyline HCl 50 mg PO HS@219901/04/21 04/03/21 HYDROcodone/APAP 10-325MG [Aneta 1 - 2 tab PO Q8H PRN 01/04/21 04/03/21 10-325] metFORMIN HCL [Glucophage] 500 mg PO DAILY@99901/04/21 04/03/21 Amiodarone [Cordarone] 200 mg PO BID@1000,219902/07/21 04/03/21 Ascorbic Acid [Vitamin C] 500 mg PO DAILY@99902/07/21 04/03/21 Clopidogrel [Plavix] 75 mg PO DAILY@219902/07/21 04/03/21 Apixaban [Eliquis] 5 mg PO BID@1000,22003/09/21 04/03/21 Cholecalciferol [Vitamin D3 (25 50 mcg PO DAILY@1400 03/09/21 04/03/21 Mcg = 1000 Iu)] Ezetimibe [Zetia] 10 mg PO DAILY@99903/09/21 04/03/21 Metoprolol Tartrate [Lopressor] 50 mg PO TID@1000,1600,219903/09/21 04/03/21 Spironolactone [Aldactone] 25 mg PO DAILY@99903/09/21 04/03/21 lisinopriL [Zestril] 5 mg PO DAILY@1000 03/09/21 04/03/21 Furosemide [Lasix] 20 mg PO DAILY 04/03/21 04/03/21 Previous Rx's Medication Instructions Recorded Cefuroxime Axetil [Ceftin] 500 mg PO BID 20 Days #10 tab 03/11/21 Isosorbide Mononitrate ER [Imdur] 30 mg PO DAILY tablet 03/11/21 Tamsulosin [Flomax] 0.4 mg PO PC-[id number] 03/11/21 Allergies Allergy/AdvReac Type Severity Reaction Status Date / Time ticagrelor [From Brilinta] Allergy Dyspnea Verified 04/03/21 18:38 zolpidem [From Ambien] Allergy "opposite Verified 04/03/21 18:38 effect" aspirin AdvReac Abdominal Verified 04/03/21 18:38 Pain atorvastatin [From Lipitor] AdvReac Abdominal Verified 04/03/21 18:38 Pain carisoprodol [From Soma] AdvReac "not Verified 04/03/21 18:38 effective" cyclobenzaprine AdvReac "not Verified 04/03/21 18:38 [From Flexeril] effective" gabapentin [From Neurontin] AdvReac "not Verified 04/03/21 18:38 effective" NSAIDS (Non-Steroidal AdvReac Abdominal Verified 04/03/21 18:38 Anti-Inflamma Pain sertraline [From Zoloft] AdvReac "not Verified 04/03/21 18:38 effective" Qyrmoys-Bsc-Tla Reductase AdvReac Abdominal Verified 04/03/21 18:38 Inhibitor Pain tramadol AdvReac "not Verified 04/03/21 18:38 effective" Review of Systems ROS Statement: Those systems with pertinent positive or pertinent negative responses have been documented in the HPI. ROS Other: All systems not noted in ROS Statement are negative. Past Medical History Past Medical History: Atrial Fibrillation, Diabetes Mellitus, Fibromyalgia, Hyperlipidemia, Myocardial Infarction ([place]) Additional Past Medical History / Comment(s): Stent placed x2 in Feb 12, 2021 Last Myocardial Infarction Date:: 01/04/21 History of Any Multi-Drug Resistant Organisms: None Reported Past Surgical History: Hysterectomy Additional Past Surgical History / Comment(s): Hysterectomy 1986, radial cath 03/10 Past Anesthesia/Blood Transfusion Reactions: No Reported Reaction Additional Past Anesthesia/Blood Transfusion Reaction / Comment(s): "wake up from anesthesia very quickly" Past Psychological History: No Psychological Hx Reported Smoking Status: Never smoker Past Alcohol Use History: None Reported Past Drug Use History: None Reported - Past Family History Mother Family Medical History: Cancer Father Family Medical History: Cancer General Exam Limitations: no limitations General appearance: lethargic, in distress Head exam: Present: atraumatic, normocephalic Eye exam: Present: normal appearance, PERRL ENT exam: Present: mucous membranes dry Neck exam: Present: normal inspection. Absent: tenderness, meningismus Respiratory exam: Present: respiratory distress, rales. Absent: wheezes Cardiovascular Exam: Present: regular rate, normal rhythm GI/Abdominal exam: Present: soft. Absent: distended, tenderness, guarding, rebound Extremities exam: Present: normal capillary refill, pedal edema Neurological exam: Present: alert, oriented X3 (slow respond), CN II-XII intact, motor sensory deficit (patient has a dysarthria) Psychiatric exam: Present: normal affect, normal mood Skin exam: Present: pallor Course Vital Signs 04/03/21 04/03/21 04/03/21 16:11 18:07 19:17 Temperature 95.0 F L 96.9 F L Pulse Rate 85 84 82 Respiratory 16 18 16 Rate Blood Pressure 93/41 93/70 90/37 O2 Sat by Pulse 92 L 74 L Oximetry 04/03/21 04/03/21 04/03/21 20:26 20:36 20:45 Temperature Pulse Rate 87 87 85 Respiratory 16 Rate Blood Pressure 103/63 128/67 O2 Sat by Pulse 92 L 94 L Oximetry EKG Findings - EKG Comments: EKG Findings:: wide-complex rhythm first-degree AV block, rate of 84, MO interval 224, QRS duration 136, QTC 457 very poor this represents an acute change compared to EKG from February Medical Decision Making - Medical Decision Making 75-year-old female presenting in extremis. Patient is pale, cyanotic hypoxic, hypothermic. Unknown down time. I did discuss at length the with the patient's daughter her CODE STATUS and ultimately did decide at the patient would not be intubated but would receive medical management for her current conditions. Head CT was performed which is negative for intracranial hemorrhage or mass effect cervical spine negative for fracture subluxation. Chest x-ray showed bilateral pulmonary edema versus pneumonia. She has an elevated white blood cell count at 18.9. Hemoglobin is 10.9 which is stable. She has a lactic acid of 5.9. She has an elevated troponin of 0.35 and she is anticoagulated. Urinalysis is negative. Urine drug screen is positive for the medication she has been prescribed. Her coronavirus testing is negative. She responds poorly to supplemental oxygen. She is started on BiPAP initiated on IV hydration and IV antibiotics. This is a mixed picture of shock, septic versus cardiogenic. Her EKG does represent an acute change with widened QRS complex and a positive troponin, BMP is pending. She is given IV fluids but then started early on vasopressor support. She's given IV antibiotics. She will be admitted to the ICU, Dr. Cherry is aware and the admitting physician Dr. López is aware. At this time she will be a DO NOT INTUBATE, DO NOT RESUSCITATE to the extent of no CPR or the daughter does wish for defibrillation if she was to enter a shockable rhythm. Echo has been ordered. - Lab Data Result diagrams: 04/03/21 17:03 04/03/21 17:03 Lab Results 04/03/21 04/03/21 04/03/21 Range/Units 16:40 17:03 17:03 WBC 18.9 H (3.8-10.6) k/uL RBC 3.83 (3.80-5.40) m/uL Hgb 10.9 L (11.4-16.0) gm/dL Hct 36.6 (34.0-46.0) % MCV 95.7 (80.0-100.0) fL MCH 28.6 (25.0-35.0) pg MCHC 29.9 L (31.0-37.0) g/dL RDW 14.9 (11.5-15.5) % Plt Count 498 H (150-450) k/uL MPV 8.3 Neutrophils % 94 % Lymphocytes % 3 % Monocytes % 2 % Eosinophils % 0 % Basophils % 0 % Neutrophils # 17.8 H (1.3-7.7) k/uL Lymphocytes # 0.6 L (1.0-4.8) k/uL Monocytes # 0.4 (0-1.0) k/uL Eosinophils # 0.0 (0-0.7) k/uL Basophils # 0.0 (0-0.2) k/uL Hypochromasia Marked PT 11.4 (9.0-12.0) sec INR 1.1 (<1.2) APTT 27.7 (22.0-30.0) sec Sample Site ABG pH (7.35-7.45) ABG pCO2 (35-45) mmHg ABG pO2 (83-108) mmHg ABG HCO3 (21-25) mmol/L ABG Total CO2 (19-24) mmol/L ABG O2 Saturation (94-97) % ABG Base Excess mmol/L Shun Test Sodium (137-145) mmol/L Potassium (3.5-5.1) mmol/L Chloride (98-107) mmol/L Carbon Dioxide (22-30) mmol/L Anion Gap mmol/L BUN (7-17) mg/dL Creatinine (0.52-1.04) mg/dL Est GFR (CKD-EPI)AfAm (>60 ml/min/1.73 sqM) Est GFR (CKD-EPI)NonAf (>60 ml/min/1.73 sqM) Glucose (74-99) mg/dL Lactic Ac Sepsis Rflx Plasma Lactic Acid David (0.7-2.0) mmol/L Calcium (8.4-10.2) mg/dL Phosphorus (2.5-4.5) mg/dL Magnesium (1.6-2.3) mg/dL Total Bilirubin (0.2-1.3) mg/dL AST (14-36) U/L ALT (4-34) U/L Alkaline Phosphatase (38-126) U/L Creatine Kinase (30-135) U/L Troponin I (0.000-0.034) ng/mL Total Protein (6.3-8.2) g/dL Albumin (3.5-5.0) g/dL TSH (0.465-4.680) mIU/L Urine Color Urine Appearance (Clear) Urine pH (5.0-8.0) Ur Specific [place] (1.001-1.035) Urine Protein (Negative) Urine Glucose (UA) (Negative) Urine Ketones (Negative) Urine Blood (Negative) Urine Nitrite (Negative) Urine Bilirubin (Negative) Urine Urobilinogen (<2.0) mg/dL Ur Leukocyte Esterase (Negative) Urine Opiates Screen Detected H (NotDetected) Ur Oxycodone Screen Detected H (NotDetected) Urine Methadone Screen Not Detected (NotDetected) Ur Propoxyphene Screen Not Detected (NotDetected) Acetaminophen ug/mL Ur Barbiturates Screen Not Detected (NotDetected) U Tricyclic Antidepress Detected H (NotDetected) Ur Phencyclidine Scrn Not Detected (NotDetected) Ur Amphetamines Screen Not Detected (NotDetected) U Methamphetamines Scrn Not Detected (NotDetected) U Benzodiazepines Scrn Detected H (NotDetected) Urine Cocaine Screen Not Detected (NotDetected) U Marijuana (THC) Screen Not Detected (NotDetected) Acetone, Qual (Negative) Coronavirus (PCR) (Not Detectd) 04/03/21 04/03/21 04/03/21 Range/Units 17:03 17:03 17:03 WBC (3.8-10.6) k/uL RBC (3.80-5.40) m/uL Hgb (11.4-16.0) gm/dL Hct (34.0-46.0) % MCV (80.0-100.0) fL MCH (25.0-35.0) pg MCHC (31.0-37.0) g/dL RDW (11.5-15.5) % Plt Count (150-450) k/uL MPV Neutrophils % % Lymphocytes % % Monocytes % % Eosinophils % % Basophils % % Neutrophils # (1.3-7.7) k/uL Lymphocytes # (1.0-4.8) k/uL Monocytes # (0-1.0) k/uL Eosinophils # (0-0.7) k/uL Basophils # (0-0.2) k/uL Hypochromasia PT (9.0-12.0) sec INR (<1.2) APTT (22.0-30.0) sec Sample Site ABG pH (7.35-7.45) ABG pCO2 (35-45) mmHg ABG pO2 (83-108) mmHg ABG HCO3 (21-25) mmol/L ABG Total CO2 (19-24) mmol/L ABG O2 Saturation (94-97) % ABG Base Excess mmol/L Shun Test Sodium 137 (137-145) mmol/L Potassium 5.0 (3.5-5.1) mmol/L Chloride 104 (98-107) mmol/L Carbon Dioxide 16 L (22-30) mmol/L Anion Gap 17 mmol/L BUN 34 H (7-17) mg/dL Creatinine 0.98 (0.52-1.04) mg/dL Est GFR (CKD-EPI)AfAm 65 (>60 ml/min/1.73 sqM) Est GFR (CKD-EPI)NonAf 57 (>60 ml/min/1.73 sqM) Glucose 288 H (74-99) mg/dL Lactic Ac Sepsis Rflx Plasma Lactic Acid David 5.9 H* (0.7-2.0) mmol/L Calcium 9.1 (8.4-10.2) mg/dL Phosphorus 4.4 (2.5-4.5) mg/dL Magnesium 1.9 (1.6-2.3) mg/dL Total Bilirubin 1.0 (0.2-1.3) mg/dL AST 48 H (14-36) U/L ALT 18 (4-34) U/L Alkaline Phosphatase 86 (38-126) U/L Creatine Kinase (30-135) U/L Troponin I 0.353 H* (0.000-0.034) ng/mL Total Protein 6.7 (6.3-8.2) g/dL Albumin 3.8 (3.5-5.0) g/dL TSH 3.180 (0.465-4.680) mIU/L Urine Color Urine Appearance (Clear) Urine pH (5.0-8.0) Ur Specific [place] (1.001-1.035) Urine Protein (Negative) Urine Glucose (UA) (Negative) Urine Ketones (Negative) Urine Blood (Negative) Urine Nitrite (Negative) Urine Bilirubin (Negative) Urine Urobilinogen (<2.0) mg/dL Ur Leukocyte Esterase (Negative) Urine Opiates Screen (NotDetected) Ur Oxycodone Screen (NotDetected) Urine Methadone Screen (NotDetected) Ur Propoxyphene Screen (NotDetected) Acetaminophen <10.0 ug/mL Ur Barbiturates Screen (NotDetected) U Tricyclic Antidepress (NotDetected) Ur Phencyclidine Scrn (NotDetected) Ur Amphetamines Screen (NotDetected) U Methamphetamines Scrn (NotDetected) U Benzodiazepines Scrn (NotDetected) Urine Cocaine Screen (NotDetected) U Marijuana (THC) Screen (NotDetected) Acetone, Qual Negative (Negative) Coronavirus (PCR) (Not Detectd) 04/03/21 04/03/21 04/03/21 Range/Units 17:03 17:14 17:25 WBC (3.8-10.6) k/uL RBC (3.80-5.40) m/uL Hgb (11.4-16.0) gm/dL Hct (34.0-46.0) % MCV (80.0-100.0) fL MCH (25.0-35.0) pg MCHC (31.0-37.0) g/dL RDW (11.5-15.5) % Plt Count (150-450) k/uL MPV Neutrophils % % Lymphocytes % % Monocytes % % Eosinophils % % Basophils % % Neutrophils # (1.3-7.7) k/uL Lymphocytes # (1.0-4.8) k/uL Monocytes # (0-1.0) k/uL Eosinophils # (0-0.7) k/uL Basophils # (0-0.2) k/uL Hypochromasia PT (9.0-12.0) sec INR (<1.2) APTT (22.0-30.0) sec Sample Site ABG pH (7.35-7.45) ABG pCO2 (35-45) mmHg ABG pO2 (83-108) mmHg ABG HCO3 (21-25) mmol/L ABG Total CO2 (19-24) mmol/L ABG O2 Saturation (94-97) % ABG Base Excess mmol/L Shun Test Sodium (137-145) mmol/L Potassium (3.5-5.1) mmol/L Chloride (98-107) mmol/L Carbon Dioxide (22-30) mmol/L Anion Gap mmol/L BUN (7-17) mg/dL Creatinine (0.52-1.04) mg/dL Est GFR (CKD-EPI)AfAm (>60 ml/min/1.73 sqM) Est GFR (CKD-EPI)NonAf (>60 ml/min/1.73 sqM) Glucose (74-99) mg/dL Lactic Ac Sepsis Rflx Plasma Lactic Acid David (0.7-2.0) mmol/L Calcium (8.4-10.2) mg/dL Phosphorus (2.5-4.5) mg/dL Magnesium (1.6-2.3) mg/dL Total Bilirubin (0.2-1.3) mg/dL AST (14-36) U/L ALT (4-34) U/L Alkaline Phosphatase (38-126) U/L Creatine Kinase 324 H (30-135) U/L Troponin I (0.000-0.034) ng/mL Total Protein (6.3-8.2) g/dL Albumin (3.5-5.0) g/dL TSH (0.465-4.680) mIU/L Urine Color Yellow Urine Appearance Clear (Clear) Urine pH 5.0 (5.0-8.0) Ur Specific [place] 1.015 (1.001-1.035) Urine Protein Negative (Negative) Urine Glucose (UA) Negative (Negative) Urine Ketones Negative (Negative) Urine Blood Negative (Negative) Urine Nitrite Negative (Negative) Urine Bilirubin Negative (Negative) Urine Urobilinogen <2.0 (<2.0) mg/dL Ur Leukocyte Esterase Negative (Negative) Urine Opiates Screen (NotDetected) Ur Oxycodone Screen (NotDetected) Urine Methadone Screen (NotDetected) Ur Propoxyphene Screen (NotDetected) Acetaminophen ug/mL Ur Barbiturates Screen (NotDetected) U Tricyclic Antidepress (NotDetected) Ur Phencyclidine Scrn (NotDetected) Ur Amphetamines Screen (NotDetected) U Methamphetamines Scrn (NotDetected) U Benzodiazepines Scrn (NotDetected) Urine Cocaine Screen (NotDetected) U Marijuana (THC) Screen (NotDetected) Acetone, Qual (Negative) Coronavirus (PCR) Not Detected (Not Detectd) 04/03/21 04/03/21 Range/Units 17:49 19:40 WBC (3.8-10.6) k/uL RBC (3.80-5.40) m/uL Hgb (11.4-16.0) gm/dL Hct (34.0-46.0) % MCV (80.0-100.0) fL MCH (25.0-35.0) pg MCHC (31.0-37.0) g/dL RDW (11.5-15.5) % Plt Count (150-450) k/uL MPV Neutrophils % % Lymphocytes % % Monocytes % % Eosinophils % % Basophils % % Neutrophils # (1.3-7.7) k/uL Lymphocytes # (1.0-4.8) k/uL Monocytes # (0-1.0) k/uL Eosinophils # (0-0.7) k/uL Basophils # (0-0.2) k/uL Hypochromasia PT (9.0-12.0) sec INR (<1.2) APTT (22.0-30.0) sec Sample Site lrad ABG pH 7.21 L (7.35-7.45) ABG pCO2 46 H (35-45) mmHg ABG pO2 52 L* (83-108) mmHg ABG HCO3 19 L (21-25) mmol/L ABG Total CO2 20 (19-24) mmol/L ABG O2 Saturation 79.0 L (94-97) % ABG Base Excess -9.1 mmol/L Shun Test Yes Sodium (137-145) mmol/L Potassium (3.5-5.1) mmol/L Chloride (98-107) mmol/L Carbon Dioxide (22-30) mmol/L Anion Gap mmol/L BUN (7-17) mg/dL Creatinine (0.52-1.04) mg/dL Est GFR (CKD-EPI)AfAm (>60 ml/min/1.73 sqM) Est GFR (CKD-EPI)NonAf (>60 ml/min/1.73 sqM) Glucose (74-99) mg/dL Lactic Ac Sepsis Rflx Y Plasma Lactic Acid David (0.7-2.0) mmol/L Calcium (8.4-10.2) mg/dL Phosphorus (2.5-4.5) mg/dL Magnesium (1.6-2.3) mg/dL Total Bilirubin (0.2-1.3) mg/dL AST (14-36) U/L ALT (4-34) U/L Alkaline Phosphatase (38-126) U/L Creatine Kinase (30-135) U/L Troponin I (0.000-0.034) ng/mL Total Protein (6.3-8.2) g/dL Albumin (3.5-5.0) g/dL TSH (0.465-4.680) mIU/L Urine Color Urine Appearance (Clear) Urine pH (5.0-8.0) Ur Specific [place] (1.001-1.035) Urine Protein (Negative) Urine Glucose (UA) (Negative) Urine Ketones (Negative) Urine Blood (Negative) Urine Nitrite (Negative) Urine Bilirubin (Negative) Urine Urobilinogen (<2.0) mg/dL Ur Leukocyte Esterase (Negative) Urine Opiates Screen (NotDetected) Ur Oxycodone Screen (NotDetected) Urine Methadone Screen (NotDetected) Ur Propoxyphene Screen (NotDetected) Acetaminophen ug/mL Ur Barbiturates Screen (NotDetected) U Tricyclic Antidepress (NotDetected) Ur Phencyclidine Scrn (NotDetected) Ur Amphetamines Screen (NotDetected) U Methamphetamines Scrn (NotDetected) U Benzodiazepines Scrn (NotDetected) Urine Cocaine Screen (NotDetected) U Marijuana (THC) Screen (NotDetected) Acetone, Qual (Negative) Coronavirus (PCR) (Not Detectd) Critical Care Time Critical Care Time: Yes Total Critical Care Time: 35 Disposition Clinical Impression: NSTEMI (non-ST elevated myocardial infarction), Leukocytosis, Cardiogenic shock, Septic shock, Pneumonia Disposition: ADMITTED IP TO THIS [facility] Condition: Serious Is patient prescribed a controlled substance at d/c from ED?: No Referrals: Stacie López MD [Primary Care Provider] - 1-2 days Decision to Admit Reason: Admit from EC Decision Date: 04/03/21 Decision Time: 21:44
--- NOTE | 2021-04-03 17:54 | XR ---
EXAMINATION TYPE: XR chest 1V portable DATE OF EXAM: 04/03/2021 COMPARISON: Chest x-ray 03/11/2021 HISTORY: Trauma and pain TECHNIQUE: Single frontal view of the chest is obtained. FINDINGS: Diffuse airspace disease is present bilaterally within the lungs. No evident pneumothorax or evident effusion. Cardiac mediastinal silhouette mildly prominent. There are overlying artifacts. IMPRESSION: Bilateral pneumonia, correlate for possible Covid infection, pulmonary edema
[2021-04-03 18:08] VITALS: TEMP 96.9
[2021-04-03 18:26] LABS: Amphetamine Screen,Urine Not Detected (NotDetected); Cocaine Screen,Urine Not Detected (NotDetected); Opiate Screen,Urine Detected (NotDetected); Phencyclidine Screen,Urine Not Detected (NotDetected); Urn Cannabinoid Scrn Not Detected (NotDetected)
[2021-04-03 18:27] LABS: Barbiturate Screen,Urine Not Detected (NotDetected); Benzodiazepines Screen,Urine Detected (NotDetected); Methadone Screen, Urine Not Detected (NotDetected); Oxycodone Screen, Urine Detected (NotDetected); Tricyclic Antidepressant,Urine Detected (NotDetected)
[2021-04-03 18:41] LABS: Appearance,Urine Clear (Clear); Bilirubin,Urine Negative (Negative); Blood,Urine Negative (Negative); Color,Urine Yellow; Glucose,Urine (UA) Negative (Negative); Ketones,Urine Negative (Negative); Leukocyte Esterase,Urine Negative (Negative); Nitrite,Urine Negative (Negative); Protein,Urine Negative (Negative); Specific Gravity,Urine 1.015 (1.001-1.035); Urobilinogen,Urine <2.0 mg/dL (<2.0)
[2021-04-03] MEDS ORDERED: AZITHROMYCIN 500 MG in SODIUM CHLORIDE 0.9% 250 ML IVPB STA (19:01)
[2021-04-03] MEDS ORDERED: NOREPINEPHRINE 4 MG in SODIUM CHLORIDE 0.9% 250 ML IV ONE (19:33)
[2021-04-03 19:42] LABS: ABG Base Excess -9.1 mmol/L; ABG HCO3 19 mmol/L (21-25); ABG PCO2 46 mmHg (35-45); ABG PH 7.21 (7.35-7.45); ABG TCO2 20 mmol/L (19-24); Allen Test Performed? Yes
[2021-04-03 19:45] LABS: ABG PO2 52 mmHg (83-108)
[2021-04-03] MEDS ORDERED: LORazepam 2 MG/ML INJ IV STA (21:20)
[2021-04-03] MEDS ORDERED: ACETAMINOPHEN SUPPOSITORY 650 MG SUPP RECTAL PRN (21:34)
[2021-04-03] MEDS ORDERED: NALOXONE 0.4 MG/ML 1 ML VIAL IV PRN (21:34)
[2021-04-03] MEDS ORDERED: FUROSEMIDE 10 MG/ML 4 ML VIAL IV STA (21:56)
[2021-04-03] MEDS: MORPHINE SULFATE 2 MG/ML SYRINGE IV PRN (22:37)
[2021-04-03 22:39] LABS: Glucose,Whole Blood 261 mg/dL (75-99)
[2021-04-03] MEDS ORDERED: DEXMEDETOMIDINE/0.9% NACL(PMX) 400 MCG in EMPTY BAG 1 BAG IV SCH (23:30)
[2021-04-04] MEDS: MORPHINE SULFATE 2 MG/ML SYRINGE IV PRN (00:40)
[2021-04-04] MEDS ORDERED: ATROPINE OPHTH SOLN 1% 5ML BTL SUBLINGUAL PRN (01:11)
[2021-04-04] MEDS ORDERED: MORPHINE SULFATE 2 MG/ML SYRINGE IV PRN (01:11)
[2021-04-04] MEDS ORDERED: HYDROmorphone 0.5 MG/0.5 ML SYRINGE IVP PRN (01:11)
[2021-04-04] MEDS ORDERED: MORPHINE SULFATE 4 MG/ML SYRINGE IV PRN (01:11)
[2021-04-04] MEDS ORDERED: MORPHINE SULFATE (100 MG/2 ML) 100 MG in SODIUM CHLORIDE 0.9% 100 ML IV SCH (01:15)
[2021-04-04] MEDS ORDERED: SCOPOLAMINE 1.5MG/72HR PATCH TRANSDERM SCH (01:15)
[2021-04-04 01:46] VITALS: BP 67/48; PULSE 79; RESP 19
[2021-04-04] MEDS ORDERED: IPRATROPIUM-ALBUTEROL 3 ML NEB INHALATION SCH (08:00)
[2021-04-04] MEDS ORDERED: PANTOPRAZOLE 40 MG/10 ML VIAL IV SCH (09:00)
--- NOTE | 2021-04-04 11:24 | P.HPIM ---
History of Present Illness H&P Date: 04/03/21 Chief Complaint: Fall and altered mental status This is a 75-year-old female patient presents to the ER with concerns of altered mental status changes and fall. Patient presents to ER with concerns of slurred speech and was found to be hypoxic, hypothermic and hypotensive. Patient has a past medical history of atrial fibrillation, diabetes mellitus, fibromyalgia, hyperlipidemia and myocardial infarction. Head and cervical spine CT completed showing no acute fracture or dislocation of the cervical spine no acute intracranial hemorrhage or mass effect midline shift. Chest x-ray was completed showing bilateral pneumonia correlate for possible COVID fection pulmonary edema. Patient presents with elevated lactic acid at 5.9. Covid testing was negative. Patient was admitted to the intensive care unit. CODE STATUS was discussed with patient's daughter and she was made a no code no to intubation Review of Systems Visit for HPI otherwise unremarkable Past Medical History Past Medical History: Atrial Fibrillation, Diabetes Mellitus, Fibromyalgia, Hyperlipidemia, Myocardial Infarction ([place]) Additional Past Medical History / Comment(s): Stent placed x2 in Feb 12, 2021 Last Myocardial Infarction Date:: 01/04/21 History of Any Multi-Drug Resistant Organisms: None Reported Past Surgical History: Hysterectomy Additional Past Surgical History / Comment(s): Hysterectomy 1986, radial cath 03/10 Past Anesthesia/Blood Transfusion Reactions: No Reported Reaction Additional Past Anesthesia/Blood Transfusion Reaction / Comment(s): "wake up from anesthesia very quickly" Past Psychological History: No Psychological Hx Reported Smoking Status: Never smoker Past Alcohol Use History: None Reported Past Drug Use History: None Reported - Past Family History Mother Family Medical History: Cancer Father Family Medical History: Cancer Medications and Allergies Home Medications Medication Instructions Recorded Confirmed Type ALPRAZolam [Xanax] 1 mg PO BID PRN 01/04/21 04/03/21 History Amitriptyline HCl 50 mg PO HS@219901/04/21 04/03/21 History HYDROcodone/APAP 10-325MG [[place] 1 - 2 tab PO Q8H PRN 01/04/21 04/03/21 History 10-325] metFORMIN HCL [Glucophage] 500 mg PO DAILY@1000 01/04/21 04/03/21 History Amiodarone [Cordarone] 200 mg PO BID@1000,0 02/07/21 04/03/21 History Ascorbic Acid [Vitamin C] 500 mg PO DAILY@1000 02/07/21 04/03/21 History Clopidogrel [Plavix] 75 mg PO DAILY@2200 02/07/21 04/03/21 History Apixaban [Eliquis] 5 mg PO BID@1000,2200 03/09/21 04/03/21 History Cholecalciferol [Vitamin D3 (25 50 mcg PO DAILY@1400 03/09/21 04/03/21 History Mcg = 1000 Iu)] Ezetimibe [Zetia] 10 mg PO DAILY@1000 03/09/21 04/03/21 History Metoprolol Tartrate [Lopressor] 50 mg PO TID@1000,1600,2200 03/09/21 04/03/21 History Spironolactone [Aldactone] 25 mg PO DAILY@1000 03/09/21 04/03/21 History lisinopriL [Zestril] 5 mg PO DAILY@1000 03/09/21 04/03/21 History Cefuroxime Axetil [Ceftin] 500 mg PO BID 20 Days #10 tab 03/11/21 04/03/21 Rx Isosorbide Mononitrate ER [Imdur] 30 mg PO DAILY tablet 03/11/21 04/03/21 Rx Tamsulosin [Flomax] 0.4 mg PO PC-BRKFST 03/11/21 04/03/21 Rx Furosemide [Lasix] 20 mg PO DAILY 04/03/21 04/03/21 History Allergies Allergy/AdvReac Type Severity Reaction Status Date / Time ticagrelor [From Brilinta] Allergy Dyspnea Verified 04/03/21 18:38 zolpidem [From Ambien] Allergy "opposite Verified 04/03/21 18:38 effect" aspirin AdvReac Abdominal Verified 04/03/21 18:38 Pain atorvastatin [From Lipitor] AdvReac Abdominal Verified 04/03/21 18:38 Pain carisoprodol [From Soma] AdvReac "not Verified 04/03/21 18:38 effective" cyclobenzaprine AdvReac "not Verified 04/03/21 18:38 [From Flexeril] effective" gabapentin [From Neurontin] AdvReac "not Verified 04/03/21 18:38 effective" NSAIDS (Non-Steroidal AdvReac Abdominal Verified 10/21/21 18:38 Anti-Inflamma Pain sertraline [From Zoloft] AdvReac "not Verified 04/03/21 18:38 effective" Joglrxt-Fau-Gzz Reductase AdvReac Abdominal Verified 04/03/21 18:38 Inhibitor Pain tramadol AdvReac "not Verified 04/03/21 18:38 effective" Physical Exam Vitals: Vital Signs Temp Pulse Resp BP Pulse Ox 04/04/21 01:45 67/48 04/04/21 01:30 79 19 107/54 62 L 04/04/21 01:15 78 16 103/38 62 L 04/04/21 01:00 76 17 99/50 60 L 04/04/21 00:45 81 29 H 94/61 63 L 04/04/21 00:30 75 32 H 106/45 83 L 04/04/21 00:15 73 35 H 89/45 93 L 04/04/21 00:00 73 32 H 108/76 92 L 04/03/21 23:45 80 27 H 112/70 87 L 04/03/21 23:30 81 19 102/28 84 L 04/03/21 23:15 82 22 82/63 80 L 04/03/21 23:00 80 29 H 103/84 87 L 04/03/21 22:45 81 16 107/83 84 L 04/03/21 22:36 83 22 04/03/21 22:15 85 26 H 107/50 86 L 04/03/21 22:00 86 28 H 98/80 04/03/21 21:55 36 H 98/80 90 L 04/03/21 21:45 87 20 98/83 91 L 04/03/21 21:30 87 20 123/93 89 L 04/03/21 21:15 87 20 126/71 92 L 04/03/21 21:00 86 20 128/67 91 L 04/03/21 20:45 85 16 128/67 94 L 04/03/21 20:36 87 04/03/21 20:30 87 20 103/63 89 L 04/03/21 20:26 87 103/63 92 L 04/03/21 20:15 13 84/73 85 L 04/03/21 20:00 18 92/35 80 L 04/03/21 19:45 83 28 H 90/37 73 L 04/03/21 19:31 84 21 92/67 75 L 04/03/21 19:17 82 16 90/37 74 L 04/03/21 18:07 96.9 F L 84 18 93/70 92 L 04/03/21 16:11 95.0 F L 85 16 93/41 Intake and Output 04/03/21 04/04/21 04/04/21 22:59 06:59 14:59 Intake Total 12.266 Balance 12.266 Intake: Intake, IV Titration 12.266 Amount Norepinephrine 4 mg In 12.266 Sodium Chloride 0.9% 250 ml @ 0.05 MCG/KG/MIN 14. 43 mls/hr IV .[id number] ONE Rx#:[id number] Other: Weight 75.75 kg Results CBC & Chem 7: 04/03/21 17:03 04/03/21 17:03 Labs: Abnormal Lab Results - Last 24 Hours (Table) 04/03/21 04/03/21 04/03/21 Range/Units 16:40 17:03 17:03 WBC 18.9 H (3.8-10.6) k/uL Hgb 10.9 L (11.4-16.0) gm/dL MCHC 29.9 L (31.0-37.0) g/dL Plt Count 498 H (150-450) k/uL Neutrophils # 17.8 H (1.3-7.7) k/uL Lymphocytes # 0.6 L (1.0-4.8) k/uL ABG pH (7.35-7.45) ABG pCO2 (35-45) mmHg ABG pO2 (83-108) mmHg ABG HCO3 (21-25) mmol/L ABG O2 Saturation (94-97) % Carbon Dioxide 16 L (22-30) mmol/L BUN 34 H (7-17) mg/dL Glucose 288 H (74-99) mg/dL POC Glucose (mg/dL) (75-99) mg/dL Plasma Lactic Acid David (0.7-2.0) mmol/L AST 48 H (14-36) U/L Creatine Kinase (30-135) U/L Troponin I (0.000-0.034) ng/mL Urine Opiates Screen Detected H (NotDetected) Ur Oxycodone Screen Detected H (NotDetected) U Tricyclic Antidepress Detected H (NotDetected) U Benzodiazepines Scrn Detected H (NotDetected) 04/03/21 04/03/21 04/03/21 Range/Units 17:03 17:03 17:03 WBC (3.8-10.6) k/uL Hgb (11.4-16.0) gm/dL MCHC (31.0-37.0) g/dL Plt Count (150-450) k/uL Neutrophils # (1.3-7.7) k/uL Lymphocytes # (1.0-4.8) k/uL ABG pH (7.35-7.45) ABG pCO2 (35-45) mmHg ABG pO2 (83-108) mmHg ABG HCO3 (21-25) mmol/L ABG O2 Saturation (94-97) % Carbon Dioxide (22-30) mmol/L BUN (7-17) mg/dL Glucose (74-99) mg/dL POC Glucose (mg/dL) (75-99) mg/dL Plasma Lactic Acid David 5.9 H* (0.7-2.0) mmol/L AST (14-36) U/L Creatine Kinase 324 H (30-135) U/L Troponin I 0.353 H* (0.000-0.034) ng/mL Urine Opiates Screen (NotDetected) Ur Oxycodone Screen (NotDetected) U Tricyclic Antidepress (NotDetected) U Benzodiazepines Scrn (NotDetected) 04/03/21 04/03/21 04/03/21 Range/Units 19:40 22:04 22:36 WBC (3.8-10.6) k/uL Hgb (11.4-16.0) gm/dL MCHC (31.0-37.0) g/dL Plt Count (150-450) k/uL Neutrophils # (1.3-7.7) k/uL Lymphocytes # (1.0-4.8) k/uL ABG pH 7.21 L (7.35-7.45) ABG pCO2 46 H (35-45) mmHg ABG pO2 52 L* (83-108) mmHg ABG HCO3 19 L (21-25) mmol/L ABG O2 Saturation 79.0 L (94-97) % Carbon Dioxide (22-30) mmol/L BUN (7-17) mg/dL Glucose (74-99) mg/dL POC Glucose (mg/dL) 261 H (75-99) mg/dL Plasma Lactic Acid David 4.0 H* (0.7-2.0) mmol/L AST (14-36) U/L Creatine Kinase (30-135) U/L Troponin I (0.000-0.034) ng/mL Urine Opiates Screen (NotDetected) Ur Oxycodone Screen (NotDetected) U Tricyclic Antidepress (NotDetected) U Benzodiazepines Scrn (NotDetected) Assessment and Plan Assessment: 1. Altered mental status changes hospice secondary to pneumonia and sepsis 2. Falls 3. Septic shock elevated lactic acid and hypertension 4. History of coronary artery disease with recent cardiac catheterization and stent placement 5. History of essential hypertension 6. History of hyperlipidemia 7. History of fibromyalgia with chronic pain syndrome 8. History of vlv-[id number]-sqiafaftp diabetes mellitus
--- NOTE | 2021-04-04 11:25 | P.DS ---
Providers Date of admission: 04/03/21 21:34 Expected date of discharge: 04/04/21 Attending physician: Stacie López Consults: 04/03/21 21:34 Consult Physician Stat Consulting Provider: Jes Cherry Consult Reason/Comments: hypoxia, shock Do you want consulting provider notified?: Already Contacted Primary care physician: Stacie López [place] [facility] Course: Discharge diagnosis 1. Altered mental status changes hospice secondary to pneumonia and sepsis 2. Falls 3. Septic shock elevated lactic acid and hypertension 4. History of coronary artery disease with recent cardiac catheterization and stent placement 5. History of essential hypertension 6. History of hyperlipidemia 7. History of fibromyalgia with chronic pain syndrome 8. History of ukv-fhoroce-oztfvqwll diabetes mellitus Hospital course This is a 75-year-old female patient presents to the ER with concerns of altered mental status changes and fall. Patient presents to ER with concerns of slurred speech and was found to be hypoxic, hypothermic and hypotensive. Patient has a past medical history of atrial fibrillation, diabetes mellitus, fibromyalgia, hyperlipidemia and myocardial infarction. Head and cervical spine CT completed showing no acute fracture or dislocation of the cervical spine no acute intracranial hemorrhage or mass effect midline shift. Chest x-ray was completed showing bilateral pneumonia correlate for possible COVID fection pulmonary edema. Patient presents with elevated lactic acid at 5.9. Covid testing was negative. Patient was admitted to the intensive care unit. CODE STATUS was discussed with patient's daughter and she was made a no code no to intubation patient was initially admitted to the intensive care unit but continued to decline. Per records patient was made comfort care per family request. Patient at 1:47 AM on 04/04/2021 Plan - Discharge Summary New Discharge Prescriptions: No Action ALPRAZolam [Xanax] 1 mg PO BID PRN PRN Reason: Anxiety Clopidogrel [Plavix] 75 mg PO DAILY@2200 Spironolactone [Aldactone] 25 mg PO DAILY@1000 Metoprolol Tartrate [Lopressor] 50 mg PO TID@1000,1600,2200 Apixaban [Eliquis] 5 mg PO BID@1000,2200 Tamsulosin [Flomax] 0.4 mg PO PC-BRKFST Isosorbide Mononitrate ER [Imdur] 30 mg PO DAILY tablet Furosemide [Lasix] 20 mg PO DAILY metFORMIN HCL [Glucophage] 500 mg PO DAILY@1000 HYDROcodone/APAP 10-325MG [[place] 10-325] 1 - 2 tab PO Q8H PRN PRN Reason: Pain Amitriptyline HCl 50 mg PO HS@2200 Ascorbic Acid [Vitamin C] 500 mg PO DAILY@1000 Amiodarone [Cordarone] 200 mg PO BID@1000,2199 Cholecalciferol [Vitamin D3 (25 Mcg = 1000 Iu)] 50 mcg PO DAILY@1400 Ezetimibe [Zetia] 10 mg PO DAILY@1000 lisinopriL [Zestril] 5 mg PO DAILY@1000 Cefuroxime Axetil [Ceftin] 500 mg PO BID 20 Days #10 tab Discharge Medication List ALPRAZolam [Xanax] 1 mg PO BID PRN 01/04/21 [History] Amitriptyline HCl 50 mg PO HS@219901/04/21 [History] HYDROcodone/APAP 10-325MG [[place] 10-325] 1 - 2 tab PO Q8H PRN 01/04/21 [History] metFORMIN HCL [Glucophage] 500 mg PO DAILY@99901/04/21 [History] Amiodarone [Cordarone] 200 mg PO BID@1000,219902/07/21 [History] Ascorbic Acid [Vitamin C] 500 mg PO DAILY@99902/07/21 [History] Clopidogrel [Plavix] 75 mg PO DAILY@219902/07/21 [History] Apixaban [Eliquis] 5 mg PO BID@1000,219903/09/21 [History] Cholecalciferol [Vitamin D3 (25 Mcg = 1000 Iu)] 50 mcg PO DAILY@1400 03/09/21 [History] Ezetimibe [Zetia] 10 mg PO DAILY@99903/09/21 [History] Metoprolol Tartrate [Lopressor] 50 mg PO TID@1000,1600,219903/09/21 [History] Spironolactone [Aldactone] 25 mg PO DAILY@99903/09/21 [History] lisinopriL [Zestril] 5 mg PO DAILY@99903/09/21 [History] Cefuroxime Axetil [Ceftin] 500 mg PO BID 20 Days #10 tab 03/11/21 [Rx] Isosorbide Mononitrate ER [Imdur] 30 mg PO DAILY tablet 03/11/21 [Rx] Tamsulosin [Flomax] 0.4 mg PO PC-BRKFST 03/11/21 [Rx] Furosemide [Lasix] 20 mg PO DAILY 04/03/21 [History] Follow up Appointment(s)/Referral(s): Stacie López MD [Primary Care Provider] - 1-2 days Discharge Disposition: - Preliminary Cause of Preliminary Cause of : Septic shock
--- NOTE | 2021-04-17 12:00 | CDI ---
Documentation Clarification Form Date: 04/17/2021 11:00:27 AM From: Ree Hernandez RN, CCDS Email: [email or web address] Admit Date: 04/03/2021 09:34:00 PM Patient Name: Ava Pratt Visit Number: [id number] Discharge Date: 04/04/2021 03:36:00 AM ATTENTION: The Clinical Documentation Specialists (CDI) and [facility] Coding Staff appreciate your assistance in clarifying documentation. Please respond to the clarification below the line at the bottom and electronically sign. The CDI & [facility] Coding staff will review the response and follow-up if needed. Please note: Queries are made part of the Legal Health Record. If you have any questions, please contact the author of this message via ITS. Dr. Stacie López Your patient presented with altered mental status, fall, slurred speech, hypoxic, hypothermic and hypotensive. Based on this information and the findings below, is there an additional diagnosis that is clinically appropriate for this patient? Patient history/risk factors: Atrial fibrillation, diabetes mellitus, fibromyalgia, hyperlipidemia, myocardial infarction ([place]). Admitted with sepsis, septic shock and pneumonia. Clinical Indicators: 04/03 ED note: She is initially hypoxic, hypothermic and hypotensive. She had spoken to family late yesterday. Patient is pale, cyanotic hypoxic, hypothermic. She is started on BiPAP initiated on IV hydration and IV antibiotics. 04/04 H&P: Patient presents to ER with concerns of slurred speech and was found to be hypoxic, hypothermic and hypotensive. 04/04 DS: Patient presents to ER with concerns of slurred speech and was found to be hypoxic, hypothermic and hypotensive. Pulse ox range: 62-92% on bipap and nasal cannula 04/03 VS: Temp 95.0, HR 85, BP 93/41. RR ranged from 16-35 04/03 ABG's: pH 7.21, pCO2 46, pO2 52, HCO3 19 Treatment: Bipap, nasal cannula, IV Ativan x1 on 04/03, IV Morphine prn Is there an additional diagnosis that is clinically appropriate for this patient? [x ] Acute hypoxic respiratory failure [ ] Other, please specify [ ] Unable to determine MTDD
--- NOTE | 2021-04-17 12:38 | CDI ---
Documentation Clarification Form Date: 04/17/2021 12:01:39 PM From: Ree Hernandez RN, CCDS Email: [email or web address] Admit Date: 04/03/2021 09:34:00 PM Patient Name: Ava Pratt Visit Number: [id number] Discharge Date: 04/04/2021 03:36:00 AM ATTENTION: The Clinical Documentation Specialists (CDI) and [facility] Coding Staff appreciate your assistance in clarifying documentation. Please respond to the clarification below the line at the bottom and electronically sign. The CDI & [facility] Coding staff will review the response and follow-up if needed. Please note: Queries are made part of the Legal Health Record. If you have any questions, please contact the author of this message via ITS. Dr. Stacie López Your patient has the documented symptom of Altered Mental Status in the ED note, H&P and discharge summary. Additional clarification regarding the etiology/cause of this symptom is requested. History/Risk Factors: Atrial fibrillation, diabetes mellitus, fibromyalgia, hyperlipidemia, myocardial infarction ([place]). Admitted with sepsis, septic shock and pneumonia. Clinical Indicators: 04/03 ED note: '75-year-old female presenting from home with altered mental status, fall, and unknown down time. She was brought by EMS, she was accompanied by a bottle of Barre, amitriptyline and Xanax. She denies taking too much of these medications.' 04/04 H&P: 'This is a 75-year-old female patient presents to the ER with concerns of altered mental status changes and fall. Altered mental status changes secondary to pneumonia and sepsis.' Discharge summary: 'Discharge diagnosis: Altered mental status changes secondary to pneumonia and sepsis.' Pulse ox range: 62-92% on bipap and nasal cannula 04/03 VS: Temp 95.0, HR 85, BP 93/41. RR ranged from 16-35 04/03 ABG's: pH 7.21, pCO2 46, pO2 52, HCO3 19, WBC 18.9. Urine drug screen: +opiates, +oxycodone, + tricyclic antidepressants, + benzodiazepines Treatment: IV antibiotics, Bipap, IV Ativan, ICU monitoring, IV Levophed Please clarify the etiology of the symptom of Altered Mental Status: [ x ] Metabolic encephalopathy due to infection [ ] Toxic encephalopathy due to polypharmacy [ ] Other condition (please specify) [ ] Unable to determine MTDD
== END 2021-04-04 03:36 | disposition expired | DRG 871 ==
LOC: EC 15:58 → 2SICU 21:34
PROVIDERS: ADMIT Internal Medicine; ATTEND Internal Medicine
PROC: 5A09357 Assistance with Respiratory Ventilation, Less than 24 Consecutive Hours, Continuous Positive Airway Pressure (ICD-10-PCS; principal; 2021-04-03)
DX: A41.9 Sepsis, unspecified organism (principal); J18.9 Pneumonia, unspecified organism; R65.21 Severe sepsis with septic shock; J96.01 Acute respiratory failure with hypoxia; G93.41 Metabolic encephalopathy; Z20.822 Contact with and (suspected) exposure to COVID-19; Z51.5 Encounter for palliative care; Z66 Do not resuscitate; R57.0 Cardiogenic shock; E11.9 Type 2 diabetes mellitus without complications; E78.5 Hyperlipidemia, unspecified; T68.XXXA Hypothermia, initial encounter; R47.81 Slurred speech; G89.4 Chronic pain syndrome; I25.10 Atherosclerotic heart disease of native coronary artery without angina pectoris; I10 Essential (primary) hypertension; R29.6 Repeated falls; Z95.5 Presence of coronary angioplasty implant and graft; I25.2 Old myocardial infarction; I44.0 Atrioventricular block, first degree; I48.91 Unspecified atrial fibrillation; M79.7 Fibromyalgia; Z79.01 Long term (current) use of anticoagulants; Z79.02 Long term (current) use of antithrombotics/antiplatelets; Z79.84 Long term (current) use of oral hypoglycemic drugs; Z79.899 Other long term (current) drug therapy; Z90.710 Acquired absence of both cervix and uterus; Z88.8 Allergy status to other drugs, medicaments and biological substances; Z91.81 History of falling
CPT/HCPCS: 36415; 36600; 70450; 71045; 72125; 72170; 80053; 80143; 80306; 81003; 82009; 82550; 82805; 83605; 83735; 83880; 84100; 84443; 84484; 85025; 85610; 85730; 87040; 87635; 93005; 94660; 96374; 96375; 99291